=== PATIENT | male | born 1940 | race Caucasian/White ===

== ENCOUNTER 2022-04-22 18:12 | Emergency (ER) | payer MEDICARE, SELFPAY ==
[2022-04-22 18:18] VITALS: BP 114/75; PULSE 88; RESP 16; TEMP 36.4; O2SAT 96; BMI 28.1
[2022-04-22 19:13] LABS: Basophils Absolute Auto 0.04 K/uL (0.00-0.30); Basophils Percent Auto 0.6 % (0.0-3.0); Eosinophils Absolute Auto 0.11 K/uL (0.00-0.50); Eosinophils Percent Auto 1.6 % (0.0-7.0); Hematocrit 44.6 % (37.0-53.0); Hemoglobin* 15.4 gm/dL (13.5-17.5); Immature Granulocytes Abs Auto 0.01 K/uL (0.00-0.30); Lymphocytes Absolute Auto 1.66 K/uL (0.90-2.90); Lymphocytes Percent Auto 23.6 % (20-44); Mean Corpuscular HGB Conc 35 gm/dL (32-36); Mean Corpuscular Hemoglobin 31 pg (26-34); Mean Corpuscular Volume 89 fL (80-100); Monocytes Percent Auto 9.8 % (0.0-11.0); Neutrophils Absolute Auto 4.52 K/uL (1.7-7.0); Neutrophils Percent Auto 64.3 % (42.0-72.0); Platelet Count* 205 K/uL (140-440); RDW Coefficient of Variation % 12.2 % (11.5-15.5); Red Blood Count 5.03 m/uL (4.30-5.90); White Blood Count* 7.03 K/uL (4.50-11.00)
[2022-04-22 19:16] LABS: Slide Review Reflex No
[2022-04-22 19:29] LABS: Chloride* 108 mmol/L (96-114); Potassium* 4.3 mmol/L (3.6-5.1); Sodium* 138 mmol/L (135-149)
[2022-04-22 19:32] LABS: Blood Urea Nitrogen* 29 mg/dL (7-30); Carbon Dioxide* 22 mmol/L (20-32); Creatinine* 1.1 mg/dL (0.5-1.5); Est. Creatinine Clearance* 51.82; Estimated Glomerular Filt Rate 68 ml/min
[2022-04-22 19:33] LABS: Calcium* 9.4 mg/dL (8.4-10.6); Glucose* 103 mg/dL (60-115)
--- NOTE | 2022-04-22 20:27 | ED.GENADULT ---
HPI - General Adult General Date Seen: 04/22/22 Chief complaint: High Blood Pressure Stated complaint: Elevated HR Time Seen by Provider: 04/22/22 18:32 History of Present Illness HPI narrative: Patient is an 81 year old male who says that he was a little concerned about his heart rate last night and today. Says his normal heart rate is in the 70s are maybe 80s. Last night when he went to get on his stationary bike, he noted that when he started riding the bike his heart rate was instead in the 90s. Today, when he took his blood pressure he noted that his heart rate was again in the 90s, when it normally is in the 80s. He says he feels completely fine, and if he did not checked the numbers he would not have known anything was wrong. He says he called the clinic to ask what he should do, and the triage nurse that he probably should not wait to be seen in the clinic but instead she be seen in the ER. He denies any symptoms at all, has not had chest pain, palpitations, shortness of breath, lightheadedness, dizziness, fainting, denies any nausea or vomiting, no diarrhea, no black or bloody stools. Has been eating and drinking well. Has been able to exercise normally. He had a new blood pressure medicine started a month ago which he does not remember the name of. He has continued to take his metoprolol aside from missing 1 or 2 doses. Related Data Home Medications Medication Instructions Recorded Confirmed gabapentin 300 mg capsule mg 04/22/22 lisinopril 20 tab 04/22/22 mg-hydrochlorothiazide 12.5 mg tablet metoprolol succinate 25 mg mg PO 04/22/22 tablet,extended release 24 hr mirtazapine 7.5 mg tablet mg 04/22/22 Allergies Allergy/AdvReac Type Severity Reaction Status Date / Time No Known Drug Allergies Allergy Verified 04/22/22 18:26 Review of Systems Status of ROS: Reports: 10 or more systems reviewed and unremarkable except as noted in History and below [facility] Medical History Depression Hypertension Lumbar stenosis Surgical History History of carpal tunnel release Social History Smoking Status: Never smoker How often do you have a drink containing alcohol: never How often do you have six or more drinks on one occasion: Never AUDIT-C Alcohol total score: 0 Non-prescribed substance use: denies use Exam Narrative: Exam Narrative: Vital signs as noted below. In general, an alert, well-appearing patient. Head: Normocephalic, atraumatic. Eyes: Pupils are equal reactive. Extraocular movements are full. Conjunctivae are normal. ENT: Mucous membranes are moist. Throat is normal. Neck: Supple without lymphadenopathy. Heart: Regular rate and rhythm. No murmur or rub. Lungs: Clear bilaterally. No increased work of breathing, crackles or wheezes. Abdomen: Soft and nontender. No organomegaly. Extremities: Well perfused. No edema. No calf tenderness. Pulses intact. Neurologic: Patient is alert and oriented to person and place. Speech is fluent. Face is symmetric. Moves all extremities equally. Affect: Normal. Skin: Warm and dry. Well perfused. Const: Vital Signs, click to edit/add: Vital Signs - 24 hr 04/22/22 18:18 Temperature 97.6 F Pulse Rate [Right Pulse Oximeter] 88 Respiratory Rate 16 Blood Pressure [Ri ght Upper Arm] 114/75 Pulse Oximetry 96 Documenting provider has reviewed patient's vital signs: yes Course Course Hospital Course: I did check an EKG here, he is in a normal sinus rhythm with a first-degree AV block by my review. No ST segment changes. I checked a CBC, he has hemoglobin is normal. Basic metabolic panel shows normal electrolytes, normal creatinine. BUN is 29. Overall, I have reviewed with him that his heart rates are all within normal limits. He is not having any symptoms, does not have anything in his history to suggest a reason to be concerned. I have suggested to him that he simply stop checking his heart rates. Discussed if he begins to have any symptoms such as shortness of breath, lightheadedness, weakness etcetera that he can go ahead and check a heart rate. If faster than 100, check in with primary care. Follow up with primary care as planned in June and less symptoms develop. Vital Signs Vital signs: Initial Vital Signs Temperature 97.6 F 04/22/22 18:18 Temperature Source Temporal Artery Scan 04/22/22 18:18 Pulse Rate 88 04/22/22 18:18 Respiratory Rate 16 04/22/22 18:18 Blood Pressure 114/75 04/22/22 18:18 Blood Pressure Mean 88 04/22/22 18:18 Blood Pressure Position Sitting 04/22/22 18:18 Pulse Oximetry 96 04/22/22 18:18 Oxygen Delivery Method 04/22/22 18:18 Vital Signs Temperature 97.6 F 04/22/22 18:18 Pulse Rate 88 04/22/22 18:18 Respiratory Rate 16 04/22/22 18:18 Blood Pressure 114/75 04/22/22 18:18 Pulse Oximetry 96 04/22/22 18:18 Temperature 97.6 F 04/22/22 18:18 Pulse Rate 88 04/22/22 18:18 Respiratory Rate 16 04/22/22 18:18 Blood Pressure 114/75 04/22/22 18:18 Pulse Oximetry 96 04/22/22 18:18 Medical Decision Making Lab Data Labs: Lab Results 04/22/22 04/22/22 Range/Units 18:50 18:50 WBC 7.03 (4.50-11.00) K/uL RBC 5.03 (4.30-5.90) m/uL Hgb 15.4 (13.5-17.5) gm/dL Hct 44.6 (37.0-53.0) % MCV 89 (80-100) fL MCH 31 (26-34) pg MCHC 35 (32-36) gm/dL RDW Coeff of Nikhil 12.2 (11.5-15.5) % Plt Count 205 (140-440) K/uL Neut % (Auto) 64.3 (42.0-72.0) % Lymph % (Auto) 23.6 (20-44) % [place] % (Auto) 9.8 (0.0-11.0) % Eos % (Auto) 1.6 (0.0-7.0) % Baso % (Auto) 0.6 (0.0-3.0) % Neut # (Auto) 4.52 (1.7-7.0) K/uL Lymph # (Auto) 1.66 (0.90-2.90) K/uL [place] # (Auto) 0.70 (0.00-0.90) K/UL Eos # (Auto) 0.11 (0.00-0.50) K/uL Baso # (Auto) 0.04 (0.00-0.30) K/uL Abs Immat Gran (auto) 0.01 (0.00-0.30) K/uL Sodium 138 (135-149) mmol/L Potassium 4.3 (3.6-5.1) mmol/L Chloride 108 (96-114) mmol/L Carbon Dioxide 22 (20-32) mmol/L BUN 29 (7-30) mg/dL Creatinine 1.1 (0.5-1.5) mg/dL Estimated Creat Clear 51.82 Estimated GFR 68 ml/min Glucose 103 (60-115) mg/dL Calcium 9.4 (8.4-10.6) mg/dL Discharge Plan Discharge Clinical Impression: Worried well Patient Disposition: Home, Self-Care Condition: Stable Additional Instructions: Follow-up with your doctors plan. No need to check your heart rate unless you are feeling poorly. Prescriptions: No Action lisinopril-hydrochlorothiazide 20-12.5 mg tablet 0RF Label Comments: TAKE 1 TABLET BY MOUTH EVERY DAY gabapentin 300 mg capsule 0RF metoprolol succinate 25 mg tablet extended release 24 hr PO 0RF Label Comments: TAKE 1 TABLET BY MOUTH EVERY DAY IN THE MORNING mirtazapine 7.5 mg tablet 0RF Label Comments: TAKE 1 TABLET BY MOUTH AT BEDTIME. Follow Up/Referrals: Robbie Maldonado MD [Primary Care Provider] - Stand Alone Forms: [employer] Info Instructions
[2022-04-22 20:43] VITALS: BP 120/70; PULSE 79; RESP 16; TEMP 36.4; O2SAT 98
[2022-04-22 20:46] VITALS: BP 120/70; PULSE 79; RESP 16; TEMP 36.4
== END 2022-04-22 20:45 | disposition home or self-care (01) ==
PROVIDERS: Emergency Provider Emergency Medicine; PCP Family Medicine
DX: Z71.1 Person with feared health complaint in whom no diagnosis is made (principal)
CPT/HCPCS: 36415; 80048; 85025; 93005; 99283

== ENCOUNTER 2022-12-11 17:36 | Inpatient (IN) | payer MEDICARE, SELFPAY ==
[2022-12-11] VITALS (12 sets, daily range): BP systolic 99–152; BP diastolic 64–94; PULSE 80–95; RESP 16–18; TEMP 36.8–37.1; O2SAT 96–99; BMI 28.1; BMI 28.5
--- NOTE | 2022-12-11 18:07 | ED.GENADULT ---
HPI - General Adult General Chief complaint: Weakness Stated complaint: Fall Time Seen by Provider: 12/11/22 17:38 History of Present Illness HPI narrative: This 82-year-old male lives alone at home and comes in because of a couple falls that occurred today. He states that he typically uses a walker and has a foot brace because of a foot drop. He lives alone and can usually ambulate and manage daily activities well. He did test positive for COVID today. He does have symptoms of cough and nasal congestion. He states that he fell twice at home today and does not have any specific injury from the fall. He states that he was unable to get up because he did not have strength in his arms and legs. He was across the room from his cellphone and was unable to get up even to his hands and knees to crawl. He had to roll over to his back and scoot over to the phone to ask for help. He does have abrasions on both knees. He was able to call a couple friends who helped him get up to ambulate. He came in by private vehicle and again had a fall upon entering the emergency department here. He does not report any particular pain. He states that he feels generalized weakness. He had similar symptoms last summer and was deemed to be volume depleted. He states that he has been taking oral liquids and food sufficiently. Related Data Home Medications Medication Instructions Recorded Confirmed gabapentin 300 mg capsule mg 04/22/22 lisinopril 20 1 tab PO DAILY 04/22/22 12/11/22 mg-hydrochlorothiazide 12.5 mg tablet metoprolol succinate 25 mg 25 mg PO DAILY 04/22/22 12/11/22 tablet,extended release 24 hr mirtazapine 7.5 mg tablet mg 04/22/22 Allergies Allergy/AdvReac Type Severity Reaction Status Date / Time No Known Drug Allergies Allergy Verified 04/22/22 18:26 Review of Systems Status of ROS: Reports: 10 or more systems reviewed and unremarkable except as noted in History and below Narrative: Constitutional: No fevers, no weight gain or loss. Eyes: No discharge. No vision changes. HENT: No ear pain. He reports nasal congestion and sore throat. Cardiovascular: No chest pain, no palpitations. Respiratory: No shortness of breath, no wheezes. He reports an occasional cough. Gastrointestinal: No abdominal pain, no vomiting, no diarrhea. Genitourinary: No dysuria, no hematuria. Musculoskeletal: Normal range of motion. Skin: No rashes, no pruritis. Abrasions on both knees. Neurological: No dizziness, sensory change, speech change. Generalized weakness as described above. Endo/Heme/Allergies: No bruising or bleeding. No polydipsia. Pysch: no suicidality, no anxiety, no insomnia. All other systems reviewed and are negative. [facility] Medical History Depression Hypertension Lumbar stenosis Surgical History History of carpal tunnel release Social History Smoking Status: Former smoker How often do you have a drink containing alcohol: never How often do you have six or more drinks on one occasion: Never AUDIT-C Alcohol total score: 0 Non-prescribed substance use: denies use Exam Narrative: Exam Narrative: Constitutional: Well-developed, well-nourished, no acute distress. HEENT: Normocephalic, atraumatic. Neck: Normal range of motion. Nontender. Supple. Heart: Regular. No murmurs. Normal rate. Intact distal pulses. Lungs: Clear to auscultation. No chest discomfort. No wheezes, rhonchi, or rales. Abdomen: Normal bowel sounds. Nontender. No rebound tenderness. Genitalia: Deferred. Back: No midline tenderness. Normal range of motion. Extremities: Normal range of motion. Superficial abrasions on both knees. Skin: Intact. No rash. Warm. No erythema or pallor. Neurologic: No altered sensation. No weakness. Alert and oriented. He is able to raise each leg from the bed. No facial asymmetry. Speech is normal. Psychiatric: No suicidality. No anxiety or depression. No insomnia. Nursing notes and vitals signs are reviewed. Const: Vital Signs, click to edit/add: Vital Signs - 24 hr 12/11/22 17:43 12/11/22 18:33 12/11/22 19:02 Temperature 98.7 F Pulse Rate 84 80 Pulse Rate [Pulse Oximeter] 95 Respiratory Rate 18 Blood Pressure 101/76 112/81 Blood Pressure [Ri ght Upper Arm] 99/75 Pulse Oximetry 97 98 96 Oxygen Delivery Me thod Room Air Course Vital Signs Vital signs: Initial Vital Signs Temperature 98.7 F 12/11/22 17:43 Temperature Source Temporal Artery Scan 12/11/22 17:43 Pulse Rate 95 12/11/22 17:43 Pulse Rhythm 12/11/22 17:43 Respiratory Rate 18 12/11/22 17:43 Blood Pressure 99/75 12/11/22 17:43 Blood Pressure Mean 83 12/11/22 17:43 Blood Pressure Position Sitting 12/11/22 17:43 Pulse Oximetry 97 12/11/22 17:43 Oxygen Delivery Method 12/11/22 17:43 Vital Signs Temperature 98.7 F 12/11/22 17:43 Pulse Rate 95 12/11/22 17:43 Respiratory Rate 18 12/11/22 17:43 Blood Pressure 99/75 12/11/22 17:43 Pulse Oximetry 97 12/11/22 17:43 Oxygen Delivery Method 12/11/22 17:43 Temperature 98.7 F 12/11/22 17:43 Pulse Rate 80 12/11/22 19:02 Respiratory Rate 18 12/11/22 17:43 Blood Pressure 112/81 12/11/22 19:02 Pulse Oximetry 96 12/11/22 19:02 Oxygen Delivery Method 12/11/22 17:43 Medical Decision Making MDM Narrative Medical decision making narrative: This patient comes in reporting generalized weakness. He has fallen 3 times today and was unable to get up. He normally can ambulate with the assistance of a walker. He does not report any injury except he has got abrasions on his knees from trying to crawl to his phone at home. Lab results are returning with no findings that explain weakness. He was positive for COVID at home and this was confirmed with retesting here today. This likely is the explanation for his would generalized weakness. I did speak to the hospitalist on-call who agrees to his admission. Lab Data Labs: Lab Results 12/11/22 12/11/22 12/11/22 Range/Units 18:25 18:25 18:41 WBC 8.32 (4.50-11.00) K/uL RBC 4.68 (4.30-5.90) m/uL Hgb 14.2 (13.5-17.5) gm/dL Hct 42.0 (37.0-53.0) % MCV 90 (80-100) fL MCH 30 (26-34) pg MCHC 34 (32-36) gm/dL RDW Coeff of Nikhil 12.7 (11.5-15.5) % Plt Count 122 L (140-440) K/uL Neut % (Auto) 86.8 H (42.0-72.0) % Lymph % (Auto) 4.6 L (20-44) % [place] % (Auto) 8.1 (0.0-11.0) % Eos % (Auto) 0.2 (0.0-7.0) % Baso % (Auto) 0.2 (0.0-3.0) % Neut # (Auto) 7.20 H (1.7-7.0) K/uL Lymph # (Auto) 0.40 L (0.90-2.90) K/uL [place] # (Auto) 0.70 (0.00-0.90) K/UL Eos # (Auto) 0.02 (0.00-0.50) K/uL Baso # (Auto) 0.02 (0.00-0.30) K/uL Sodium 134 L (135-149) mmol/L Potassium 3.8 (3.6-5.1) mmol/L Chloride 106 (96-114) mmol/L Carbon Dioxide 23 (20-32) mmol/L BUN 20 (7-30) mg/dL Creatinine 1.1 (0.5-1.5) mg/dL Estimated Creat Clear 52.67 Estimated GFR 67 ml/min Glucose 105 (60-115) mg/dL Calcium 8.1 L (8.4-10.6) mg/dL SARS-CoV-2 Ag (Rapid) POSITIVE A (Negative) ECG Data Attestation: I personally reviewed and interpreted this ECG as follows: Interpretation: Normal sinus rhythm with 1st degree AV block. Rate is 84 beats per minute. There are no ST or T-wave abnormalities. Discharge Plan Discharge Clinical Impression: COVID-19, Weakness Patient Disposition: Admitted As Inpatient Condition: Unchanged Prescriptions: No Action lisinopril-hydrochlorothiazide 20-12.5 mg tablet 1 tab PO DAILY Label Comments: TAKE 1 TABLET BY MOUTH EVERY DAY gabapentin 300 mg capsule metoprolol succinate 25 mg tablet extended release 24 hr 25 mg PO DAILY Label Comments: TAKE 1 TABLET BY MOUTH EVERY DAY IN THE MORNING mirtazapine 7.5 mg tablet Label Comments: TAKE 1 TABLET BY MOUTH AT BEDTIME. Follow Up/Referrals: Robbie Maldonado MD [Primary Care Provider] - Stand Alone Forms: [employer] Info Instructions
--- NOTE | 2022-12-11 18:11 | CRLHL7_ITS ---
For Patients: As a result of the Cures Act, medical imaging exams and procedure reports are released immediately into your electronic medical record. You may view this report before your referring provider. If you have questions, please contact your health care provider. INDICATION: Cough, COVID TECHNIQUE: Chest 1 view COMPARISON: 03/23/2022 FINDINGS: Cardiovascular and mediastinum: Vascular calcifications and cardiac silhouette enlargement with tortuosity of the aorta. Lungs and pleural spaces: Lungs are clear. No sign of infiltrate or mass. No sign of pleural effusion. No pneumothorax. Bones and soft tissues: No acute fracture. Postop changes lower thoracic/lumbar spine. Degenerative changes. IMPRESSION: No acute findings. Dictated by Jake Reese MD @ 12/11/2022 6:54:40 PM (Electronically Signed)
[2022-12-11] MEDS: 0.9 % SODIUM CHLORIDE 500 ML 500 ML IV (18:27)
[2022-12-11 18:33] LABS: Basophils Absolute Auto 0.02 K/uL (0.00-0.30); Basophils Percent Auto 0.2 % (0.0-3.0); Eosinophils Absolute Auto 0.02 K/uL (0.00-0.50); Eosinophils Percent Auto 0.2 % (0.0-7.0); Hemoglobin* 14.2 gm/dL (13.5-17.5); Immature Granulocytes Abs Auto 0.01 K/uL (0.00-0.30); Immature Granulocytes Pct Auto 0.1 %; Lymphocytes Percent Auto 4.6 % (20-44); Mean Corpuscular HGB Conc 34 gm/dL (32-36); Mean Corpuscular Hemoglobin 30 pg (26-34); Mean Corpuscular Volume 90 fL (80-100); Monocytes Percent Auto 8.1 % (0.0-11.0); Neutrophils Percent Auto 86.8 % (42.0-72.0); Platelet Count* 122 K/uL (140-440); RDW Coefficient of Variation % 12.7 % (11.5-15.5); Red Blood Count 4.68 m/uL (4.30-5.90); White Blood Count* 8.32 K/uL (4.50-11.00)
--- NOTE | 2022-12-11 18:37 | ED.NURSE ---
Heads-up to HS regarding possible admission.
[2022-12-11 18:55] LABS: Slide Review Reflex No
[2022-12-11 19:01] LABS: Chloride* 106 mmol/L (96-114); Potassium* 3.8 mmol/L (3.6-5.1); Sodium* 134 mmol/L (135-149)
[2022-12-11 19:04] LABS: Blood Urea Nitrogen* 20 mg/dL (7-30); Carbon Dioxide* 23 mmol/L (20-32); Creatinine* 1.1 mg/dL (0.5-1.5); Est. Creatinine Clearance* 52.67; Estimated Glomerular Filt Rate 67 ml/min; Glucose* 105 mg/dL (60-115)
[2022-12-11 19:05] LABS: Calcium* 8.1 mg/dL (8.4-10.6)
[2022-12-11 19:06] LABS: SARS Antigen* POSITIVE (Negative)
--- NOTE | 2022-12-11 20:01 | ED.NURSE ---
patient assited to side of the bed to use urinal. Patient then assisted back into bed, patient given extra pillow for under his knees. Patient denies any other needs at this time.
--- NOTE | 2022-12-11 20:01 | ED.NURSE ---
M/S requests Pt be held in ED until room can be vacated and cleaned.
--- NOTE | 2022-12-11 20:10 | W.PC.EDHO ---
Primary Language: Preferred Language: Orientation Status: [X] Alert & Oriented [] Slight Confusion [] Known Dx Dementia Transfers By: [X] Assist of 1 [] Assist of 2 [] Lift Wears leg brace for chronic foot drop. #20G in L AC. Active Medications Discontinued Medications Generic Name Dose Route Start Last Admin Trade Name Daily PRN Reason Stop Dose Admin Sodium Chloride 500 mls @ 500 mls/hr 12/11/22 18:05 12/11/22 19:27 0.9 % Sodium Chloride 500 Ml IV 12/11/22 19:04 Infused .Q1H ONE Infusion Description of Symptoms ED Triage Present Problem Pt here for eval of weakness, frequent falls, Description COVID+. Sore throat, SOB, weakness started , tested + for COVID last noc. Has abrasions on bilateral knees from falls today, had to crawl on floor to get to phone to call neighbor. Uses a walker at home, leg braces. C/o bilateral knee pain. Did take a lorazepam last noc for muscle spasms. [place] Coma Scale [place] coma scale total score 15 Pain Pain Description [Knee] Acute Pain Intensity [Knee] 7 Pain Intensity 7 Pain Intensity 7 Pain Intensity 7 Pain Scale Used [Knee] Numeric (1 - 10) Pain Scale Used Numeric (1 - 10) Pain Scale Used Numeric (1 - 10) Pain Scale Used Numeric (1 - 10) Oxygen Administration Pulse Oximetry 99 Pulse Oximetry 96 Pulse Oximetry 98 Pulse Oximetry 97 Oxygen Delivery Method Room Air Cardiac Monitoring EKG Method Bedside
--- NOTE | 2022-12-11 20:14 | ED.NURSE ---
Report given to JACQUI Salinas.
[2022-12-11 20:24] LABS: Appearance Urine Clear (Clear); Bilirubin Urine Negative (Negative); Blood Urine Trace-intact (Negative); Color Urine Yellow (Yellow); Glucose Urine Negative (Negative); Ketones Urine Negative (Negative); Leukocyte Esterase Urine Negative (Negative); Nitrite Urine Negative (Negative); Protein Urine Negative (Negative); Specific Gravity Urine <= 1.005 (1.000-1.030); Urobilinogen Urine 0.2 (0.2-1.0)
[2022-12-11 20:43] LABS: RBC Urine 0-2 (0-2); WBC Urine 0-2 (0-5)
[2022-12-11 20:44] LABS: Amorphous Sediment Urine Few; Bacteria Urine Few
--- NOTE | 2022-12-11 20:59 | PM.IMHP1 ---
Hospitalist- H&P: HPI History of Present Illness Date Seen: 12/11/22 Chief complaint: Fall Narrative: Shane Rajput is a 82 year old male who presented to the emergency room for profound weakness that began this morning. He fell at home and had to crawl to the phone to call for help to get up, he then had a friend drive him to the ER, and fell again upon arrival. There has been no preceding dizziness, lightheadedness, or palpitations. He did not lay on the floor for an extended period of time. He did test positive for COVID at home this morning. He endorses a mild cough and sore throat with nasal congestion. He has not had shortness of breath or chest pain. ER course and findings: - negative chest x-ray - + COVID antigen - mild thrombocytopenia (platelets of 122, has not had a CBC in a few years but they were previously normal on chart review) Given patient's weakness and COVID positivity, in addition to the fact that he lives alone and has mobility concerns, he is admitted to the hospital. Past medical history updated below. PCP is Dr. Maldonado at the [facility]. He has received 5 COVID vaccinations. Patient lives independently, ambulates with a walker and brace on right lower extremity given foot drop. Review of Systems Status of ROS: Reports: 10 or more systems reviewed and unremarkable except as noted in History and below [facility] Medical History (Updated 12/11/22 @ 21:57 by Aleta Zamora MD) Depression Foot drop, right Hypertension Insomnia Lumbar stenosis Muscle spasms of both lower extremities Surgical History (Updated 12/11/22 @ 20:02 by Aleta Zamora MD) H/O spinal fusion History of carpal tunnel release History of total knee arthroplasty Hx of cataract surgery S/P hip replacement Social History (Updated 12/11/22 @ 21:24 by Aleta Zamora MD) Narrative: Lives alone in [place]. No living children, son 2-3 years ago. Niece Aleyda Rajput in [place] or friends Woo and Joanne Webb would be medical decision makers if needed. Full code status. 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 Quit smoking in the , no ETOH use. Smoking Status: Former smoker How often do you have a drink containing alcohol: never How often do you have six or more drinks on one occasion: Never AUDIT-C Alcohol total score: 0 Non-prescribed substance use: denies use Meds Home Medications and Allergies Home Medications Medication Instructions Recorded Confirmed Type gabapentin 300 mg capsule 600 mg PO HS 04/22/22 12/11/22 History lisinopril 20 1 tab PO DAILY 04/22/22 12/11/22 History mg-hydrochlorothiazide 12.5 mg tablet metoprolol succinate 25 mg 25 mg PO DAILY 04/22/22 12/11/22 History tablet,extended release 24 hr lorazepam 1 mg tablet 0.5 - 1 mg PO QPM PRN 12/11/22 12/11/22 History Allergies Allergy/AdvReac Type Severity Reaction Status Date / Time No Known Drug Allergies Allergy Verified 04/22/22 18:26 Exam Narrative: Exam Narrative: GEN: Alert and oriented, answering questions appropriately and appears nontoxic HEENT: EOMIs bilaterally, no scleral icterus CV: RRR, soft systolic murmur without concerning features R: LCTA bilaterally without concerning wheezing, air movement adequate Ext: No concerning edema of LEs Skin: + abrasions on left upper extremity and bilateral knees, all hemostatic Neuro: No focal deficits, no resting tremor, gait not observed Psych: Appropriate Const: Vital Signs, click to edit/add: Vital Signs - 24 hr 12/11/22 17:43 12/11/22 18:33 12/11/22 19:02 Temperature 98.7 F Pulse Rate 84 80 Pulse Rate [Pulse Oximeter] 95 Respiratory Rate 18 Blood Pressure 101/76 112/81 Blood Pressure [Ri ght Upper Arm] 99/75 Pulse Oximetry 97 98 96 Oxygen Delivery Me thod Room Air 12/11/22 19:32 Temperature Pulse Rate 86 Pulse Rate [Pulse Oximeter] Respiratory Rate Blood Pressure 113/75 Blood Pressure [Ri ght Upper Arm] Pulse Oximetry 99 Oxygen Delivery Me thod Hospitalist - H&P: Result Labs Labs: Short CBC 12/11/22 Range/Units 18:25 WBC 8.32 (4.50-11.00) K/uL Hgb 14.2 (13.5-17.5) gm/dL Hct 42.0 (37.0-53.0) % Plt Count 122 L (140-440) K/uL BMP 12/11/22 18:25 Sodium 134 L Potassium 3.8 Chloride 106 Carbon Dioxide 23 BUN 20 Creatinine 1.1 Glucose 105 Calcium 8.1 L Urine 12/11/22 Range/Units 20:15 Urine Color Yellow (Yellow) Urine Appearance Clear (Clear) Urine pH 5.0 (5.0-8.5) Ur Specific [place] <= 1.005 (1.000-1.030) Urine Protein Negative (Negative) Urine Glucose (UA) Negative (Negative) Assessment and Plan Assessment and plan (1) COVID-19: Problem comment: - amenable to Remdesivir after risk and benefit discussion - no hypoxia, weakness is primary COVID symptom Status: Acute (2) Weakness: Problem comment: - likely secondary to COVID - PT and OT ordered Status: Acute (3) Thrombocytopenia: Problem comment: - no history of this per chart review, continue to follow Status: Acute (4) Muscle spasms of both lower extremities: Problem comment: - chronic, likely main contributor to insomnia - currently controls with outpatient regimen of 600-900mg of gabapentin at night, in addition to melatonin and magnesium. Occasionally adds 0.5 mg of lorazepam Status: Acute Plan - per above - lovenox for ppx (continue to monitor platelet count on this) - requests Full Code status
[2022-12-11] MEDS: GABAPENTIN 300 MG CAPSULE 600 MG PO (22:30)
[2022-12-11] MEDS: MELATONIN 3 MG TABLET PO (22:30)
[2022-12-11] MEDS: LORazepam 0.5 MG TABLET PO (23:06)
[2022-12-12] MEDS: guaiFENesin 100 MG/ML CUP PO ×3 (03:00→22:54)
[2022-12-12 05:37] VITALS: BP 133/80; PULSE 88; RESP 18; TEMP 36.8; O2SAT 98
--- NOTE | 2022-12-12 06:04 | PC.NURSE ---
Pt rested well this night. Afebrile. O2 98% on RA. Oriented x3. Wobbly on feet. Able to stand at side of bed with urinal.
[2022-12-12 06:31] LABS: Basophils Absolute Auto 0.01 K/uL (0.00-0.30); Basophils Percent Auto 0.2 % (0.0-3.0); Eosinophils Absolute Auto 0.02 K/uL (0.00-0.50); Eosinophils Percent Auto 0.3 % (0.0-7.0); Hemoglobin* 14.4 gm/dL (13.5-17.5); Lymphocytes Percent Auto 11.6 % (20-44); Mean Corpuscular HGB Conc 34 gm/dL (32-36); Mean Corpuscular Hemoglobin 30 pg (26-34); Mean Corpuscular Volume 90 fL (80-100); Monocytes Percent Auto 12.2 % (0.0-11.0); Neutrophils Percent Auto 75.7 % (42.0-72.0); Platelet Count* 133 K/uL (140-440); Red Blood Count 4.76 m/uL (4.30-5.90); White Blood Count* 6.29 K/uL (4.50-11.00)
[2022-12-12 06:45] LABS: Chloride* 107 mmol/L (96-114); Potassium* 4.2 mmol/L (3.6-5.1); Sodium* 137 mmol/L (135-149)
[2022-12-12 06:47] LABS: Est. Creatinine Clearance* 57.93; Estimated Glomerular Filt Rate 76 ml/min
[2022-12-12 06:48] LABS: Blood Urea Nitrogen* 16 mg/dL (7-30); Calcium* 8.3 mg/dL (8.4-10.6); Carbon Dioxide* 24 mmol/L (20-32); Glucose* 107 mg/dL (60-115)
[2022-12-12 06:49] LABS: Slide Review Reflex No
[2022-12-12] MEDS: METOPROLOL SUCCINATE (XL) 25 MG TAB PO (10:15)
[2022-12-12] MEDS: SODIUM CHLORIDE 0.9 % (FLUSH) 10 ML SYRINGE 5 ML IVF ×2 (10:16→21:57)
[2022-12-12 10:18] VITALS: BP 124/94; PULSE 110; RESP 20; TEMP 36.9; O2SAT 95
[2022-12-12] MEDS: ACETAMINOPHEN 325 MG TABLET 975 MG PO (10:53)
--- NOTE | 2022-12-12 14:26 | P.IMPN_ITS ---
Progress Note: A&P Assessment and plan (1) COVID-19: Problem details: - amenable to Remdesivir after risk and benefit discussion - no hypoxia, weakness is primary COVID symptom Status: Acute (2) Weakness: Problem details: - likely secondary to COVID - PT and OT ordered Status: Acute (3) Thrombocytopenia: Problem details: - no history of this per chart review, no evidence of acute bleeding, continue to follow Status: Acute (4) Muscle spasms of both lower extremities: Problem details: - chronic, likely main contributor to insomnia - currently controls with outpatient regimen of 600-900mg of gabapentin at night, in addition to melatonin and magnesium. Occasionally adds 0.5 mg of lorazepam Status: Acute (5) Tachycardia: Problem details: - intermittent sinus tachycardia noted, no other symptoms. Blood pressure stable and patient remains afebrile - continue to follow Status: Acute Plan - per above - Lovenox for ppx - pending clinical course, may be able to d/c home with HH vs TCU stay Subjective Date Seen: 12/12/22 Interval history: No acute events overnight. Not requiring supplemental oxygen, tolerating medications. Shane has no concerns for hospitalist team, weakness is slowly improving. Working with therapies. Tachycardia noted today, asymptomatic from this. No CP, no dyspnea, no LE edema. Exam Narrative: Exam Narrative: GEN: Alert and oriented, sitting comfortably in bed and speaking in full sentences HEENT: EOMIs bilaterally, no scleral icterus CV: Heart rate in the 100 range and regular, no concerning murmurs R: LCTA bilaterally without concerning wheezing, air movement adequate Ext: wwp, no concerning edema Skin: Scattered abrasions on lower extremities bilaterally, none with evidence of acute infection Neuro: No focal deficits Psych: Appropriate Const: Vital Signs, click to edit/add: Vital Signs - 24 hr 12/11/22 17:43 12/11/22 18:33 12/11/22 19:02 Temperature 98.7 F Pulse Rate 84 80 Pulse Rate [Left R adial] Pulse Rate [Pulse Oximeter] 95 Respiratory Rate 18 Blood Pressure 101/76 112/81 Blood Pressure [Ri ght Arm] Blood Pressure [Ri ght Upper Arm] 99/75 Pulse Oximetry 97 98 96 Oxygen Delivery Me thod Room Air 12/11/22 19:32 12/11/22 20:15 12/11/22 20:30 Temperature Pulse Rate 86 85 83 Pulse Rate [Left R adial] Pulse Rate [Pulse Oximeter] Respiratory Rate Blood Pressure 113/75 Blood Pressure [Ri ght Arm] Blood Pressure [Ri ght Upper Arm] Pulse Oximetry 99 97 98 Oxygen Delivery Me thod 12/11/22 20:32 12/11/22 20:45 12/11/22 21:00 Temperature Pulse Rate 85 90 91 Pulse Rate [Left R adial] Pulse Rate [Pulse Oximeter] Respiratory Rate Blood Pressure 139/87 Blood Pressure [Ri ght Arm] Blood Pressure [Ri ght Upper Arm] Pulse Oximetry 98 98 97 Oxygen Delivery Me thod 12/11/22 21:46 12/11/22 23:07 12/11/22 23:15 Temperature 98.7 F 98.3 F Pulse Rate Pulse Rate [Left R adial] 88 Pulse Rate [Pulse Oximeter] Respiratory Rate 18 18 16 Blood Pressure Blood Pressure [Ri ght Arm] 152/94 H 104/64 Blood Pressure [Ri ght Upper Arm] Pulse Oximetry 97 97 98 [facility] Room [facility] 12/12/22 05:37 12/12/22 10:18 Temperature 98.2 F 98.4 F Pulse Rate Pulse Rate [Left R adial] 88 110 H Pulse Rate [Pulse Oximeter] Respiratory Rate 18 20 Blood Pressure Blood Pressure [Ri ght Arm] 133/80 124/94 H Blood Pressure [Ri ght Upper Arm] Pulse Oximetry 98 95 [facility] Room Air Labs Labs: Laboratory Results - last 24 hr 12/11/22 12/11/22 12/11/22 18:25 18:25 18:41 WBC 8.32 RBC 4.68 Hgb 14.2 Hct 42.0 MCV 90 MCH 30 MCHC 34 RDW Coeff of Nikhil 12.7 Plt Count 122 L Neut % (Auto) 86.8 H Lymph % (Auto) 4.6 L [place] % (Auto) 8.1 Eos % (Auto) 0.2 Baso % (Auto) 0.2 Neut # (Auto) 7.20 H Lymph # (Auto) 0.40 L [place] # (Auto) 0.70 Eos # (Auto) 0.02 Baso # (Auto) 0.02 Sodium 134 L Potassium 3.8 Chloride 106 Carbon Dioxide 23 BUN 20 Creatinine 1.1 Estimated Creat Clear 52.67 Estimated GFR 67 Glucose 105 Calcium 8.1 L Urine Color Urine Appearance Urine pH Ur Specific [place] Urine Protein Urine Glucose (UA) Urine Ketones Urine Blood Urine Nitrite Urine Bilirubin Urine Urobilinogen Ur Leukocyte Esterase Urine RBC Urine WBC Ur Squamous Epith Cells Amorphous Sediment Urine Bacteria SARS-CoV-2 Ag (Rapid) POSITIVE A 12/11/22 12/12/22 12/12/22 20:15 06:15 06:15 WBC 6.29 RBC 4.76 Hgb 14.4 Hct 43.0 MCV 90 MCH 30 MCHC 34 RDW Coeff of Nikhil 13.0 Plt Count 133 L Neut % (Auto) 75.7 H Lymph % (Auto) 11.6 L [place] % (Auto) 12.2 H Eos % (Auto) 0.3 Baso % (Auto) 0.2 Neut # (Auto) 4.80 Lymph # (Auto) 0.70 L [place] # (Auto) 0.80 Eos # (Auto) 0.02 Baso # (Auto) 0.01 Sodium 137 Potassium 4.2 Chloride 107 Carbon Dioxide 24 BUN 16 Creatinine 1.0 Estimated Creat Clear 57.93 Estimated GFR 76 Glucose 107 Calcium 8.3 L Urine Color Yellow Urine Appearance Clear Urine pH 5.0 Ur Specific [place] <= 1.005 Urine Protein Negative Urine Glucose (UA) Negative Urine Ketones Negative Urine Blood Trace-intact A Urine Nitrite Negative Urine Bilirubin Negative Urine Urobilinogen 0.2 Ur Leukocyte Esterase Negative Urine RBC 0-2 Urine WBC 0-2 Ur Squamous Epith Cells None Amorphous Sediment Few A Urine Bacteria Few A SARS-CoV-2 Ag (Rapid)
[2022-12-12 15:00] VITALS: BP 124/89; PULSE 94; RESP 18; TEMP 37.1; O2SAT 96
--- NOTE | 2022-12-12 19:23 | PC.NURSE ---
shift note: pt up 1/wheeled walker. pt has rt foot drop. pt states he has lt l/e spasms. palpated rt calf tightness. scd's in place. PP+ bilat. pt tolerating diet. pt medicated for cough. LS dim. Pt producing thick yellow phlegm. bilat l/e with multiple abrasions. IV patent.
[2022-12-12 21:45] VITALS: BP 182/93; PULSE 109; RESP 18; TEMP 36.9; O2SAT 97
[2022-12-12] MEDS: ENOXAPARIN 40 MG/0.4 ML INJ SUBCUT (21:55)
[2022-12-12] MEDS: GABAPENTIN 300 MG CAPSULE 600 MG PO (21:56)
[2022-12-12] MEDS: SENNOSIDES/DOCUSATE TABLET 1 TAB PO (21:57)
[2022-12-12] MEDS: MELATONIN 3 MG TABLET PO (22:54)
[2022-12-12] MEDS: LORazepam 0.5 MG TABLET PO (22:54)
--- NOTE | 2022-12-12 22:55 | PM.EN ---
Chart Event Note Date Seen: 12/12/22 Chart Event Note: Patient noted to have hyperpigmentation across metatarsals and extending into 2nd-4th toes, bruise vs infection vs ischemia. He did fall prior to admission. Foot is not cold during my exam. Patient has minimal sensation right lower extremity, but specifically denies severe pain. He would like to sleep this evening, XR ordered for the morning. Pending results, may need further imaging.
[2022-12-12 23:00] VITALS: BP 197/95; PULSE 105; RESP 18; O2SAT 96
[2022-12-13] VITALS (11 sets, daily range): BP systolic 95–179; BP diastolic 65–87; PULSE 78–130; RESP 16–20; TEMP 36.6–37.4; O2SAT 92–97
[2022-12-13 06:36] LABS: Basophils Absolute Auto 0.02 K/uL (0.00-0.30); Basophils Percent Auto 0.3 % (0.0-3.0); Eosinophils Absolute Auto 0.01 K/uL (0.00-0.50); Eosinophils Percent Auto 0.1 % (0.0-7.0); Hematocrit 44.8 % (37.0-53.0); Hemoglobin* 15.2 gm/dL (13.5-17.5); Lymphocytes Percent Auto 12.5 % (20-44); Mean Corpuscular HGB Conc 34 gm/dL (32-36); Mean Corpuscular Hemoglobin 31 pg (26-34); Mean Corpuscular Volume 90 fL (80-100); Monocytes Percent Auto 12.9 % (0.0-11.0); Neutrophils Percent Auto 74.2 % (42.0-72.0); Platelet Count* 144 K/uL (140-440); RDW Coefficient of Variation % 13.1 % (11.5-15.5); Red Blood Count 4.97 m/uL (4.30-5.90); White Blood Count* 7.05 K/uL (4.50-11.00)
[2022-12-13 06:56] LABS: Slide Review Reflex No
[2022-12-13 07:06] LABS: Chloride* 107 mmol/L (96-114); Potassium* 4.4 mmol/L (3.6-5.1); Sodium* 137 mmol/L (135-149)
[2022-12-13 07:09] LABS: Blood Urea Nitrogen* 15 mg/dL (7-30); Carbon Dioxide* 25 mmol/L (20-32); Creatinine* 0.9 mg/dL (0.5-1.5); Est. Creatinine Clearance* 57.93; Estimated Glomerular Filt Rate 86 ml/min
[2022-12-13 07:10] LABS: Calcium* 8.5 mg/dL (8.4-10.6); Glucose* 114 mg/dL (60-115)
--- NOTE | 2022-12-13 07:27 | PC.NURSE ---
END OF SHIFT NOTE: PT COVID POSITIVE. PLEASANT AND COOPERATIVE. CHEST CONGESTION. PRODUCTIVE COUGH. DENIES CP, SOB, N/V. AMBULATES WITH 4WW, AFO IN BOOT FOR RIGHT FOOT DROP AND A1. VS HYPERTENSIVE AND SLIGHTLY TACHYCARDIC?ON RA; AFEBRILE. AWARE, NO ORDER CHANGE. PT USES URINAL AT BEDSIDE. CALL LIGHT WITHIN PT?S REACH. PT WITH SWELLING AND BRUISING TO RIGHT FOOT; PLAN TO XRAY THIS MORNING.?
--- NOTE | 2022-12-13 08:00 | CRLHL7_ITS ---
For Patients: As a result of the Century Cures Act, medical imaging exams and procedure reports are released immediately into your electronic medical record. You may view this report before your referring provider. If you have questions, please contact your health care provider. Indication: Bruising over metatarsals. COVID positive Technique: A total of three views of the right foot were acquired.The study is somewhat limited due to portable technique and overlying garment. Comparison: None Findings: Bones: Demineralization. No obvious fracture or destructive process. 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 No gas within soft tissues. Impression: Limited study. No obvious fracture or destructive process. Osteoarthritis. Soft tissue swelling. No gas within soft tissues. Dictated by Abhilash Galicia MD @ 12/13/2022 9:03:42 AM (Electronically Signed)
[2022-12-13] MEDS: ACETAMINOPHEN 325 MG TABLET 975 MG PO (08:32)
[2022-12-13] MEDS: SENNOSIDES/DOCUSATE TABLET 1 TAB PO ×2 (08:32→21:13)
[2022-12-13] MEDS: METOPROLOL SUCCINATE (XL) 25 MG TAB PO (08:32)
[2022-12-13] MEDS: guaiFENesin 100 MG/ML CUP PO ×2 (08:35→21:18)
[2022-12-13] MEDS: SODIUM CHLORIDE 0.9 % (FLUSH) 10 ML SYRINGE 5 ML IVF ×2 (08:36→21:16)
[2022-12-13 09:52] LABS: Lactate* 1.5 mmol/L (0.5-1.9)
--- NOTE | 2022-12-13 10:47 | CRLHL7_ITS ---
For Patients: As a result of the Century Cures Act, medical imaging exams and procedure reports are released immediately into your electronic medical record. You may view this report before your referring provider. If you have questions, please contact your health care provider. INDICATION: Covid, tachycardia. TECHNIQUE: CT chest PE was acquired with 95 cc Isovue 370 IV contrast. COMPARISON: None. FINDINGS: Heart and vasculature: Contrast opacification of the pulmonary arterial tree is adequate. No sign of pulmonary embolism. Heart size is normal. Thoracic aorta and pulmonary artery are normal in caliber. Aortic arch coronary artery calcifications. Lungs and pleura: Mild peribronchial thickening greatest in the right upper and left lower lobes. No suspicious nodules or infiltrates. No pleural effusions, pleural thickening, or pneumothorax. Lymph nodes/mediastinum: No mediastinal, hilar, or axillary adenopathy. Chest wall: No masses. Upper abdomen: No acute or significant findings. Bones: Degenerative changes. Thoracolumbar hardware fixation. IMPRESSION: No pulmonary embolism, as questioned. Mild peribronchial thickening in the right upper and left lower lobe which could be seen in bronchitis/aspiration. No focal consolidations. Please note that all CT scans at this facility use dose modulation, iterative reconstruction, and/or weight-based dosing when appropriate to reduce radiation dose to as low as reasonably achievable. Dictated by Rasheed Alejandra MD @ 12/13/2022 12:58:16 PM (Electronically Signed)
--- NOTE | 2022-12-13 10:50 | P.IMPN_ITS ---
Progress Note: A&P Assessment and plan (1) COVID-19: Problem details: - treated with 3 day course of Remdesivir - no hypoxia, weakness is primary COVID symptom Status: Acute (2) Weakness: Problem details: - likely secondary to COVID - PT and OT following Status: Acute (3) Thrombocytopenia: Problem details: - no history of this per chart review, no evidence of acute bleeding, continue to follow Status: Acute (4) Muscle spasms of both lower extremities: Problem details: - chronic, likely main contributor to insomnia - currently controls with outpatient regimen of 600-900mg of gabapentin at [facility], in addition to melatonin and magnesium. Occasionally adds 0.5 mg of lorazepam Status: Acute (5) Tachycardia: Problem details: - Sinus tachycardia, asymptomatic. Continue to follow, on telemetry - TTE to be completed 12/13 - CT PE 12/13 performed. Per formal radiology read: No pulmonary embolism, mild peribronchial thickening in the right upper and left lower lobe which could be seen in bronchitis/aspiration. No focal consolidations. Status: Acute (6) Hypertension: Problem details: - continuing home dose of Metoprolol - lower BPs on admission, so HCTZ-Lisinopril held, restarted 12/13 with holding parameters Status: Acute (7) Traumatic ecchymosis of right foot: Problem details: - exam most consistent with ecchymosis from recent fall - reassuring XR and exam - normal pulses, normal lactate, no concerning pain - continue to follow clinically Status: Acute Plan - per above - Lovenox for ppx Subjective Date Seen: 12/13/22 Interval history: No acute events overnight, has continued to have intermittent sinus tachycardia, asymptomatic from this. R foot discoloration is stable. No pain (although notes that sensation is decreased 2/2 chronic neuropathy). Not requiring supplemental oxygen. Tolerating medications and therapies, weakness is slowly improving. Exam Narrative: Exam Narrative: GEN: Alert and oriented, sitting comfortably in bedside chair speaking in full sentences. Nontoxic in appearance HEENT: Normal external ears, EOMIs bilaterally, no scleral icterus CV: RRR, No concerning murmurs, rubs, or gallops R: LCTA bilaterally without concerning wheezing, rales, or rhonchi Ext: Mild (1+) pitting edema bilateral lower extremities, + palpable pulses bilaterally. No ttp, no crepitus Skin: Purplish discoloration again noted of distal right foot, extending into toes, appears most consistent with ecchymosis Neuro: Baseline for chronic conditions (right footdrop, stable) Psych: Appropriate Const: Vital Signs, click to edit/add: Vital Signs - 24 hr 12/12/22 15:00 12/12/22 15:00 12/12/22 21:45 Temperature 98.8 F 98.4 F Pulse Rate [Left R adial] 94 94 109 H Pulse Rate [Pulse Oximeter] Respiratory Rate 18 18 18 Blood Pressure [Le ft Arm] 182/93 H Blood Pressure [Ri ght Arm] 124/89 Pulse Oximetry 96 97 Oxygen Delivery Me thod Room Air Room Air 12/12/22 23:00 12/12/22 23:00 12/13/22 04:30 Temperature 98.5 F Pulse Rate [Left R adial] Pulse Rate [Pulse Oximeter] 105 H 105 H 117 H Respiratory Rate 18 18 18 Blood Pressure [Le ft Arm] 197/95 H 179/87 H Blood Pressure [Ri ght Arm] Pulse Oximetry 96 94 Oxygen Delivery Me thod Room Air Room Air 12/13/22 08:37 Temperature 99.4 F Pulse Rate [Left R adial] Pulse Rate [Pulse Oximeter] 130 H Respiratory Rate 20 Blood Pressure [Le ft Arm] 142/86 H Blood Pressure [Ri ght Arm] Pulse Oximetry 92 Oxygen Delivery Me thod Room Air Labs Labs: Laboratory Results - last 24 hr 12/13/22 12/13/22 12/13/22 06:18 06:18 09:35 WBC 7.05 RBC 4.97 Hgb 15.2 Hct 44.8 MCV 90 MCH 31 MCHC 34 RDW Coeff of Nikhil 13.1 Plt Count 144 Neut % (Auto) 74.2 H Lymph % (Auto) 12.5 L Douglas % (Auto) 12.9 H Eos % (Auto) 0.1 Baso % (Auto) 0.3 Neut # (Auto) 5.20 Lymph # (Auto) 0.90 [place] # (Auto) 0.90 Eos # (Auto) 0.01 Baso # (Auto) 0.02 Sodium 137 Potassium 4.4 Chloride 107 Carbon Dioxide 25 BUN 15 Creatinine 0.9 Estimated Creat Clear 57.93 Estimated GFR 86 Glucose 114 Lactate 1.5 Calcium 8.5 C-Reactive Protein 17.0 H
--- NOTE | 2022-12-13 13:33 | RESP.RT ---
Patient sitting up in chair, with PT, on room air, SaO2 94%, breathing regular/easy 18/minute. Bilateral Breath sounds with good air movement, very slightly diminished, no wheezing or grunting noted. Lungs CT; Mild peribronchial thickening in the right upper and left lower lobe which could be seen in bronchitis/aspiration. PEP started with patient to assist in lung recruitment and secretion mobilization when present. Demonstrated, instructed patient, who returned good exhalation effort with good chest shake. Had patient feel chest, he like the way it worked. Patient will need encouragement to continue to use Aerobika. Will continue to follow.
--- NOTE | 2022-12-13 14:05 | PC.NURSE ---
End of shift note: Patient had an Xray of foot this morning due to increased swelling and discoloration. MD reviewed. Okay to ambulate on right foot. Recommended to check a doppler to the right foot. Able to audibly hear a pulse with doppler. Spot was marked with an X on foot. Patient had a heart rate fo 130bpm this am, oxygen was at 92%. MD was notified and a CT of chest was obtained. EKG obtained and tele applied. Sinus tachycardia. Blood pressure was elevated overnight and today has been very soft. MD was notified. Metoprolol was given, other BP meds held today. Patient denies feeling dizzy and light headed. Was seen by OT/PT/RT today. Washed up with process description writer. Hair washed. Voided X3 this shift and had a large soft brown BM. Denies nausea. Lung sounds are coarse. Actively coughing up thick sputum. Knees have open sores on them. Covered with mepilex. Ambulated with assist of 1 and a walker. Alert and oriented X3. RA. Fox started today. Will have echo this afternoon.
--- NOTE | 2022-12-13 19:01 | PC.NURSE ---
End of shift-- Very pleasant and cooperative, alert and oriented patient. VSS and pt is afebrile. SPO2 maintained >90% on RA. He denied any pain. LS clear but diminished throughout. Pt c/o nasal congestion and an intermittent cough that increases with Aerobika use. Telemetry shows NSR. He denied nausea and ate 75% of a regular dinner without difficulty. Abrasions noted to both knees with Mepilex dressings that are C/D/I. Extensive bruising and swelling noted to right ankle and toes. He was up to the chair with SBA and tolerated it well. Report to oncoming shift.
[2022-12-13] MEDS: LORazepam 0.5 MG TABLET PO (21:13)
[2022-12-13] MEDS: ENOXAPARIN 40 MG/0.4 ML INJ SUBCUT (21:13)
[2022-12-13] MEDS: GABAPENTIN 300 MG CAPSULE 600 MG PO (21:13)
[2022-12-13] MEDS: MELATONIN 3 MG TABLET PO (21:13)
[2022-12-14] VITALS (8 sets, daily range): BP systolic 107–179; BP diastolic 75–94; PULSE 79–105; RESP 12–20; TEMP 36.4–37; O2SAT 95–99
--- NOTE | 2022-12-14 05:38 | PC.NURSE ---
Pt is alert and oriented x 4. Pt is a SBA with a walker for ADL?s. Pt uses urinal while standing and calls for assistance. Pt was calm, cooperative and pleasant during shift. Pt has had no complaints of pain during shift. Pt has mepilex dressing on both knees due to abrasions from fall both dry and intact. Scrapes on BLE. Right foot has ecchymosis no pain and pedal pulses 3 +.
[2022-12-14 06:55] LABS: Basophils Absolute Auto 0.02 K/uL (0.00-0.30); Basophils Percent Auto 0.3 % (0.0-3.0); Eosinophils Absolute Auto 0.07 K/uL (0.00-0.50); Eosinophils Percent Auto 1.1 % (0.0-7.0); Hematocrit 41.3 % (37.0-53.0); Hemoglobin* 13.9 gm/dL (13.5-17.5); Immature Granulocytes Abs Auto 0.01 K/uL (0.00-0.30); Immature Granulocytes Pct Auto 0.2 %; Lymphocytes Percent Auto 17.3 % (20-44); Mean Corpuscular HGB Conc 34 gm/dL (32-36); Mean Corpuscular Hemoglobin 30 pg (26-34); Mean Corpuscular Volume 89 fL (80-100); Monocytes Percent Auto 11.4 % (0.0-11.0); Neutrophils Absolute Auto 4.34 K/uL (1.7-7.0); Neutrophils Percent Auto 69.7 % (42.0-72.0); Platelet Count* 144 K/uL (140-440); RDW Coefficient of Variation % 12.9 % (11.5-15.5); Red Blood Count 4.64 m/uL (4.30-5.90); White Blood Count* 6.23 K/uL (4.50-11.00)
[2022-12-14 07:00] LABS: Slide Review Reflex No
[2022-12-14 07:09] LABS: Chloride* 108 mmol/L (96-114)
[2022-12-14 07:10] LABS: Potassium* 3.8 mmol/L (3.6-5.1); Sodium* 136 mmol/L (135-149)
[2022-12-14 07:12] LABS: Creatinine* 0.8 mg/dL (0.5-1.5); Est. Creatinine Clearance* 57.93; Estimated Glomerular Filt Rate 89 ml/min
[2022-12-14 07:13] LABS: Blood Urea Nitrogen* 18 mg/dL (7-30); Calcium* 8.1 mg/dL (8.4-10.6); Carbon Dioxide* 23 mmol/L (20-32); Glucose* 101 mg/dL (60-115)
[2022-12-14] MEDS: SODIUM CHLORIDE 0.9 % (FLUSH) 10 ML SYRINGE 5 ML IVF ×2 (08:40→21:27)
[2022-12-14] MEDS: SENNOSIDES/DOCUSATE TABLET 1 TAB PO ×2 (08:40→21:23)
[2022-12-14] MEDS: METOPROLOL SUCCINATE (XL) 25 MG TAB PO ×2 (08:40→10:48)
[2022-12-14] MEDS: ACETAMINOPHEN 325 MG TABLET 975 MG PO (09:42)
--- NOTE | 2022-12-14 11:27 | PM.IMPN1 ---
Progress Note: A&P Assessment and plan (1) Hypertension: Problem details: - continuing home dose of Metoprolol - lower BPs on admission, so HCTZ-Lisinopril held, restarted 12/13 with holding parameters Status: Acute Assessment and Plan: for 12/14: increase metoprolol XL from 25 mg to 50 mg; dc Lisinopril; hctz on hold (2) Tachycardia: Problem details: - Sinus tachycardia, asymptomatic. Continue to follow, on telemetry - CT PE 12/13 performed. Per formal radiology read: No pulmonary embolism, mild peribronchial thickening in the right upper and left lower lobe which could be seen in bronchitis/aspiration. No focal consolidations. TTE 12/13/22 Normal LV size, EF 68%, severe LV wall thickness increased from prior study Severe asymmetric LVH, no resting LVOT obstruction Aortic sinus dilation; maximum diameter 3.8cm Status: Acute Assessment and Plan: for 12/14: increase metoprolol XL from 25 mg to 50 mg (3) Muscle spasms of both lower extremities: Problem details: - chronic, likely main contributor to insomnia - currently controls with outpatient regimen of 600-900mg of gabapentin at night, in addition to melatonin and magnesium. Occasionally adds 0.5 mg of lorazepam Status: Acute (4) Thrombocytopenia: Problem details: - no history of this per chart review, no evidence of acute bleeding, continue to follow Status: Acute Assessment and Plan: 12/14: PLts have normalized (5) COVID-19: Problem details: - treated with 3 day course of Remdesivir - no hypoxia, weakness is primary COVID symptom Status: Acute (6) Weakness: Problem details: - likely secondary to COVID - PT and OT following Status: Acute Plan For today increase metoprolol for treatment of tachycardia; anticipated discharge tomorrow if HR controlled Subjective Date Seen: 12/14/22 Interval history: patient new to vt tachycardic this morning; metoprolol XL increased he denies chest pain and sob intermittent cough on room air per patient about 2-3 years ago he was on higher dose of metoprolol but dose decreased due to hypotension hctz and lisinopril held this AM due to hypotension Exam Narrative: Exam Narrative: Gen: no acute distress HEENT: NCAT EOMI mmm CV: tachycardic normal s1 s2 Lungs: CTAB Abd: Soft,nt, nd Neuro: Alert, oriented, CN grossly intact; nonfocal screening?exam Psych: appropriate affect MSK: age appropriate muscle mass Skin; Warm, dry no rash on face Const: Vital Signs, click to edit/add: Vital Signs - 24 hr 12/13/22 11:36 12/13/22 12:14 12/13/22 13:30 Temperature 97.9 F Pulse Rate Pulse Rate [Pulse Oximeter] 90 89 Respiratory Rate 20 20 18 Blood Pressure [Le ft Arm] 95/65 106/72 Blood Pressure [Ri ght Arm] Pulse Oximetry 96 95 94 Oxygen Delivery Me thod Room Air Room Air Room Air 12/13/22 16:24 12/13/22 15:53 12/13/22 15:00 Temperature 98.1 F Pulse Rate 84 Pulse Rate [Pulse Oximeter] 88 88 Respiratory Rate 16 16 Blood Pressure [Le ft Arm] 132/83 Blood Pressure [Ri ght Arm] Pulse Oximetry 97 Oxygen Delivery Me thod Room Air 12/13/22 20:00 12/13/22 23:00 12/13/22 23:00 Temperature 98.0 F 98.1 F Pulse Rate Pulse Rate [Pulse Oximeter] 78 92 92 Respiratory Rate 18 18 18 Blood Pressure [Le ft Arm] 160/82 H 150/84 H Blood Pressure [Ri ght Arm] Pulse Oximetry 96 97 Oxygen Delivery Me thod Room Air Room Air 12/13/22 23:00 12/14/22 03:15 12/14/22 08:30 Temperature 98.1 F Pulse Rate 91 Pulse Rate [Pulse Oximeter] 105 H 97 Respiratory Rate 16 18 Blood Pressure [Le ft Arm] 179/94 H Blood Pressure [Ri ght Arm] Pulse Oximetry 98 Oxygen Delivery Me thod Room Air 12/14/22 08:30 12/14/22 09:50 12/14/22 11:00 Temperature 98.1 F 98.1 F Pulse Rate 97 Pulse Rate [Pulse Oximeter] 97 96 Respiratory Rate 18 18 Blood Pressure [Le ft Arm] Blood Pressure [Ri ght Arm] 107/75 126/90 H Pulse Oximetry 97 96 Oxygen Delivery Me thod Room Air Room Air Labs Labs: Laboratory Results - last 24 hr 12/14/22 12/14/22 06:35 06:35 WBC 6.23 RBC 4.64 Hgb 13.9 Hct 41.3 MCV 89 MCH 30 MCHC 34 RDW Coeff of Nikhil 12.9 Plt Count 144 Neut % (Auto) 69.7 Lymph % (Auto) 17.3 L [place] % (Auto) 11.4 H Eos % (Auto) 1.1 Baso % (Auto) 0.3 Neut # (Auto) 4.34 Lymph # (Auto) 1.10 [place] # (Auto) 0.70 Eos # (Auto) 0.07 Baso # (Auto) 0.02 Sodium 136 Potassium 3.8 Chloride 108 Carbon Dioxide 23 BUN 18 Creatinine 0.8 Estimated Creat Clear 57.93 Estimated GFR 89 Glucose 101 Calcium 8.1 L C-Reactive Protein 15.0 H
--- NOTE | 2022-12-14 14:26 | RESP.RT ---
Patient sitting up in bed, on room air, SaO2 94%, breathing regular/easy 20/minute.? Bilateral Breath sounds with good air movement, very slightly diminished, no wheezing or grunting noted.? Lungs CT;?Mild peribronchial thickening in the right upper and left lower lobe which could be seen in bronchitis/aspiration.? PEP with patient to assist in lung recruitment and secretion mobilization when present.? Good exhalation effort with good chest shake.? Patient will need encouragement to continue to use Aerobika.? Will continue to follow.
--- NOTE | 2022-12-14 16:29 | PC.NURSE ---
PATIENT PLEASANT AND COOPERATIVE, ALERT AND ORIENTED, UP WITH SBA WITH WALKER TOLERATING WELL, ABLE TO WALK ABOUT ROOM WITHOUT SOB, TOLERATING REGULAR DIET ALTHOUGH NEEDS ENCOURAGEMENT TO ORDER MEAL, TELE NSR, BLOOD PRESSURE DECREASED THIS AM AND HELP 2 PO B/P MEDICATIONS MD AWARE AND NO OTHER CHANGES, PRODUCTIVE COUGH, PRN TYLENOL PER PATIENT REQUEST FOR MILD DISCOMFORT, PATIENT A BIT ANXIOUS REGARDING DISCHARGE MY FRIENDS KEEP TEXTING ME ABOUT MEALS AND SUPPORT WHEN I GET HOME, REASSURED PATIENT ABOUT DISCHARGE AND HELPING PATIENT ENSURE HE HAS WHAT HE NEEDS AT HOME, PATIENT VERBALIZED UNDERSTANDING.
--- NOTE | 2022-12-14 18:37 | PC.NURSE ---
End of Shift([id number]): Patient pleasant and cooperative. Patient vitally stable, lungs clear/diminished, on RA, BS WNL, IV intact. Patient SBA with walker. Patient denies pain. Patient used toilet x1, and tolerating regular diet. Up in chair for dinner. Right foot with +1 pitting edema. Mepilex on both LE intact. Tele=NSR
[2022-12-14] MEDS: ENOXAPARIN 40 MG/0.4 ML INJ SUBCUT (21:23)
[2022-12-14] MEDS: GABAPENTIN 300 MG CAPSULE 600 MG PO (21:23)
[2022-12-14] MEDS: MELATONIN 3 MG TABLET PO (21:26)
[2022-12-14] MEDS: LORazepam 0.5 MG TABLET PO (21:26)
[2022-12-15] MEDS: guaiFENesin 100 MG/ML CUP PO (03:10)
[2022-12-15 03:11] VITALS: BP 169/86; PULSE 96; RESP 16; TEMP 36.7; O2SAT 94
--- NOTE | 2022-12-15 06:55 | PC.NURSE ---
Pt is alert and oriented x 3. Pt?s posterior lungs sounds are diminished and pt has intermittent cough. Pt has productive cough that has?thick and clear colored sputum. Pt reports denies pain, N/V, Chest pain, and SOB. Pt up SBA with walker, gait belt and boot for foot drop to bathroom. Pt tolerating a regular diet. Pt slept intermittently throughout the night. ?
[2022-12-15 07:06] VITALS: PULSE 87
--- NOTE | 2022-12-15 09:46 | PC.SOCIAL ---
Addendum entered by CA Brantley 12/15/22 09:52: Phone call to pt's contact, Stone Pham, at [phone]. Informed that pt has the requested list for home school teacher care agencies in pt's room. Original Note: Provided information on home school teacher services to pt as requested. Social work will follow up as necessary.
[2022-12-15 09:51] VITALS: BP 164/96; PULSE 95; RESP 18; TEMP 36.7; O2SAT 94
--- NOTE | 2022-12-15 09:52 | P.DS_ITS ---
DS: Providers Provider Date Seen: 12/15/22 Date of admission: 12/13/22 10:25 Primary care physician: Robbie Maldonado MD Admitting Clinician: Aleta Zamora MD Consults: 12/11/22 21:26 Consult to Physical Therapy [CONS] Routine Comment: Reason(s) for PT Consult:: Evaluate and Treat Any Restrictions?:: No Restrictions Consult to Respiratory Therapy [CONS] Routine Comment: Reason(s) for RT Consult:: Consult 12/11/22 21:29 Consult to Occupational Therapy [CONS] Routine Comment: Reason(s) for OT Consult:: Evaluate and Treat Any Restrictions?:: No Restrictions 12/14/22 09:10 Consult to [employer] [CONS] Routine Comment: Reason for Consult:: Discharge Planning Needs Attending Physician on discharge: Jose Elaine Date of Discharge: 12/15/22 DS: Diagnosis Discharge Diagnosis (1) COVID-19: Status: Acute Problem details: - treated with 3 day course of Remdesivir - no hypoxia, weakness is primary COVID symptom (2) Hypertension: Status: Acute Problem details: Metoprolol XL increased from 25 to 50 mg lisinopril continued at 20 mg daily HCTZ stopped due to episodic hypotension (3) Tachycardia: Status: Acute Problem details: - Sinus tachycardia, asymptomatic. resolved with up titration of metoprolol - CT PE 12/13 performed. No pulmonary embolism, TTE 12/13/22 Normal LV size, EF 68%, severe LV wall thickness increased from prior study Severe asymmetric LVH, no resting LVOT obstruction Aortic sinus dilation; maximum diameter 3.8cm (4) Muscle spasms of both lower extremities: Status: Acute Problem details: - chronic, likely main contributor to insomnia - currently controls with outpatient regimen of 600-900mg of gabapentin at night, in addition to melatonin and magnesium. Occasionally adds 0.5 mg of lorazepam (5) Thrombocytopenia: Status: Acute Problem details: - no history of this per chart review, no evidence of acute bleeding, resolved (6) Weakness: Status: Acute Problem details: - likely secondary to COVID - PT and OT following DS: Summary Hospital Course Hospital Course: History of Present Illness Date Seen: 12/11/22 Chief complaint: Fall Narrative: Shane Rajput is a 82 year old male who presented to the emergency room for profound weakness that began this morning.? He fell at home and had to crawl to the phone to call for help to get up, he then had a friend drive him to the ER, and fell again upon arrival. There has been no preceding dizziness, lightheadedness, or palpitations.? He did not lay on the floor for an extended period of time. He did test positive for COVID at home this morning.? He endorses a mild cough and sore throat with nasal congestion.? He has not had shortness of breath or chest pain. ER course and findings: ?- negative chest x-ray ?- + COVID antigen ?- mild thrombocytopenia (platelets of 122, has not had a CBC in a few years but they were previously normal on chart review) Given patient's weakness and COVID positivity, in addition to the fact that he lives alone and has mobility concerns, he is admitted to the hospital. Past medical history updated below. PCP is Dr. Maldonado at the [facility]. He has received 5 COVID vaccinations. Patient lives independently, ambulates with a walker and brace on right lower extremity given foot drop. Please refer to hospital problem list for hospital course Status at Discharge Overall status at discharge: patient is back to baseline Time Spent with Patient Time attestation: Total time spent providing and/or coordinating discharge services: Time spent: Greater than 30 minutes Exam Narrative: Exam Narrative: Gen: no acute distress HEENT: NCAT EOMI mmm CV: RRR normal s1 s2 Lungs: CTAB Abd: Soft,nt, nd Neuro: Alert, oriented, CN grossly intact; nonfocal screening?exam Psych: appropriate affect MSK: age appropriate muscle mass Skin; Warm, dry no rash on face Const: Vital Signs, click to edit/add: Vital Signs - 24 hr 12/14/22 11:00 12/14/22 14:24 12/14/22 15:00 Temperature 98.1 F 97.6 F Pulse Rate Pulse Rate [Pulse Oximeter] 96 79 Respiratory Rate 18 20 12 Blood Pressure [Le ft Arm] 125/79 Blood Pressure [Ri ght Arm] 126/90 H Pulse Oximetry 96 96 96 Oxygen Delivery Me thod Room Air Room Air Room Air 12/14/22 15:00 12/14/22 15:00 12/14/22 19:00 Temperature 98.1 F Pulse Rate 80 Pulse Rate [Pulse Oximeter] 79 93 Respiratory Rate 12 18 Blood Pressure [Le ft Arm] 160/90 H Blood Pressure [Ri ght Arm] Pulse Oximetry 99 Oxygen Delivery Me thod Room Air 12/14/22 23:00 12/14/22 23:00 12/14/22 23:00 Temperature 98.6 F Pulse Rate 90 Pulse Rate [Pulse Oximeter] 86 Respiratory Rate 14 14 Blood Pressure [Le ft Arm] 135/80 Blood Pressure [Ri ght Arm] Pulse Oximetry 95 Oxygen Delivery Me thod Room Air 12/15/22 03:11 12/15/22 07:06 Temperature 98.0 F Pulse Rate 87 Pulse Rate [Pulse Oximeter] 96 Respiratory Rate 16 Blood Pressure [Le ft Arm] 169/86 H Blood Pressure [Ri ght Arm] Pulse Oximetry 94 Oxygen Delivery Me thod Room Air DS: Data Imaging CT- Other: Radiologist's impression: No pulmonary embolism, as questioned. Mild peribronchial thickening in the right upper and left lower lobe which could be seen in bronchitis/aspiration. No focal consolidations. Additional Comments Additional comments: Post hospital follow up PCP one week for HTN management Discharge Plan Discharge Disposition: Home, Self-Care Date of Admission: 12/13/22 10:25 Attending Provider on Discharge: Jose Elaine Primary Care Provider: Robbie Maldonado Condition: Improved Anticipated Discharge Date/Time: 12/15/22 09:39 Discharge Medications: New lisinopril 20 mg tablet 20 mg PO DAILY Qty: 30 0RF metoprolol succinate 50 mg tablet extended release 24 hr 50 mg PO DAILY Qty: 30 0RF Continued lorazepam 1 mg tablet 0.5 - 1 mg PO QPM PRN gabapentin 300 mg capsule 600 mg PO HS Rx Instructions: 2-3 caps at HS Discontinued lisinopril-hydrochlorothiazide 20-12.5 mg tablet 1 tab PO DAILY Label Comments: TAKE 1 TABLET BY MOUTH EVERY DAY metoprolol succinate 25 mg tablet extended release 24 hr 25 mg PO DAILY Label Comments: TAKE 1 TABLET BY MOUTH EVERY DAY IN THE MORNING Discharge Orders: Discharge Order (Routine); Ordered 12/15/22 Ordered By: Jose Elaine Patient Education: Metoprolol (By mouth), Lisinopril (By mouth), Hypertension (DC) Activity Level: Activity as Tolerated Discharge Diet: Other Diet Detail: Resume Previous home diet Follow Up Appointments: Robbie Maldonado MD [Primary Care Provider] - 03/21/23 1:40 pm (1) please follow up with primary care provider in 5 days for post hospital follow up and hypertension management 2) Please schedule outpatient physical therapy and occupational therapy appointments Follow up at [facility] in [place] with Dr. Maldonado.) Forms: [employer] Info Instructions
[2022-12-15] MEDS: SENNOSIDES/DOCUSATE TABLET 1 TAB PO (09:54)
[2022-12-15] MEDS: METOPROLOL SUCCINATE (XL) 50 MG TAB PO (09:54)
[2022-12-15] MEDS: lisinopriL 20 MG TABLET PO (09:54)
[2022-12-15 10:47] VITALS: RESP 18; O2SAT 94
--- NOTE | 2022-12-15 10:48 | RESP.RT ---
Patient sitting up in chair,? on room air, SaO2 94%, breathing regular/easy 20/minute.? Bilateral Breath sounds with good air movement, very slightly diminished, no wheezing or grunting noted.? PEP with patient to assist in lung recruitment and secretion mobilization when present.? Good exhalation effort with good chest shake.?? Patient using Aerobika PRN, reported getting good results.
== END 2022-12-15 11:25 | disposition home or self-care (01) | DRG 179 ==
LOC: ED 19:34 → MEDSURG 21:24
PROVIDERS: Admitting Provider Family Medicine; Emergency Provider Emergency Medicine Emergency Medical Services; PCP Family Medicine; Visit Provider Family Medicine
DX: U07.1 COVID-19 (principal); R53.1 Weakness; D69.6 Thrombocytopenia, unspecified; M62.838 Other muscle spasm; R00.0 Tachycardia, unspecified; I10 Essential (primary) hypertension; M21.379 Foot drop, unspecified foot; S80.212A Abrasion, left knee, initial encounter; S80.211A Abrasion, right knee, initial encounter; S90.31XA Contusion of right foot, initial encounter; W19.XXXA Unspecified fall, initial encounter; Z91.81 History of falling; Y92.009 Unspecified place in unspecified non-institutional (private) residence as the place of occurrence of the external cause; F32.A Depression, unspecified; M48.061 Spinal stenosis, lumbar region without neurogenic claudication; I44.0 Atrioventricular block, first degree; Z87.891 Personal history of nicotine dependence; G47.00 Insomnia, unspecified; Z96.659 Presence of unspecified artificial knee joint; Z96.649 Presence of unspecified artificial hip joint
CPT/HCPCS: 36415; 71045; 71260; 73630; 80048; 81001; 83605; 85025; 86140; 87086; 87426; 87502; 87634; 87635; 93005; 93306; 94664; 97110; 97116; 97161; 97165; 97530; 97535; 99285; G0378; A9270; J1650; J7050; J7120; Q9967

== ENCOUNTER 2023-03-18 09:11 | Outpatient (CLI) | payer MEDICARE, SELFPAY | END 2023-03-18 09:12 | disposition home or self-care (01) | LOC: AMB 03-22 10:12 | PROVIDERS: PCP Family Medicine; Visit Provider Family Medicine | DX: R55 Syncope and collapse (principal) | CPT/HCPCS: A0425; A0427 ==

== ENCOUNTER 2023-03-18 09:47 | Emergency (ER) | payer MEDICARE, SELFPAY ==
[2023-03-18] VITALS (16 sets, daily range): BP systolic 145–211; BP diastolic 77–102; PULSE 38–72; RESP 16–18; TEMP 36.4; O2SAT 90–100; BMI 29.6
--- NOTE | 2023-03-18 10:30 | ED_ITS ---
HPI - General Adult General Chief complaint: Syncope/Fainted Stated complaint: Syncopal Time Seen by Provider: 03/18/23 10:25 History of Present Illness HPI narrative: found by friend in his chair not responding right. found sitting/slumped in chair. pt c/o feeling tired. when he stood up from chair, he did fall to ground. skin tear on right leg. BS 100. denies pain. A&O upon arrival 82-year-old man presenting to the emergency department. He recalls getting ready to meet his friend for usual weekly coffee. Next thing he knows he is being woken up at the table. He seems to lost about 10 minutes of time. Was noted to be rather weak. Is not having any pain. Is not feeling chest pain or palpitations. No shortness of breath. No abdominal pain. No dysuria. No headache. Just is rather tired. No seizure history. No fever. Related Data Home Medications Medication Instructions Recorded Confirmed gabapentin 300 mg capsule 600 mg PO HS 04/22/22 03/18/23 lorazepam 1 mg tablet 0.5 - 1 mg PO QPM PRN 12/11/22 03/18/23 amlodipine 2.5 mg tablet 2.5 mg PO DAILY 03/18/23 03/18/23 oxycodone 5 mg tablet 5 mg PO Q4H PRN 03/18/23 03/18/23 Previous Rx's Medication Instructions Recorded lisinopril 20 mg tablet 20 mg PO DAILY #30 tabs 12/15/22 metoprolol succinate 50 mg 50 mg PO DAILY #30 tabs 12/15/22 tablet,extended release 24 hr cephalexin 500 mg tablet 500 mg PO TID 7 days #21 tabs 03/18/23 Allergies Allergy/AdvReac Type Severity Reaction Status Date / Time No Known Drug Allergies Allergy Verified 04/22/22 18:26 Review of Systems Status of ROS: Reports: 6 or more systems reviewed and unremarkable except as noted in History and below [facility] Medical History Muscle spasms of both lower extremities ?M62.838 - Other muscle spasm (ICD-10) Insomnia ?G47.00 - Insomnia, unspecified (ICD-10) Foot drop, right ?M21.371 - Foot drop, right foot (ICD-10) Depression ?F32.A - Depression, unspecified (ICD-10) Hypertension ?I10 - Essential (primary) hypertension (ICD-10) Lumbar stenosis ?M48.061 - Spinal stenosis, lumbar region without neurogenic claudication (ICD-10) Surgical History History of total knee arthroplasty ?Z96.659 - Presence of unspecified artificial knee joint (ICD-10) Hx of cataract surgery ?Z98.49 - Cataract extraction status, unspecified eye (ICD-10) H/O spinal fusion ?Z98.1 - Arthrodesis status (ICD-10) S/P hip replacement ?Z96.649 - Presence of unspecified artificial hip joint (ICD-10) History of carpal tunnel release ?Z98.890 - Other specified postprocedural states (ICD-10) Social History Narrative: Lives alone in [place]. No living children, son 2-3 years ago. Niece Aleyda Rajput in [place] or friends Woo and Joanne Noelrath would be medical decision makers if needed. Full code status. 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 Quit smoking in the 1980s, no ETOH use. Smoking Status: Former smoker Do you use any of these nicotine containing products: None Second hand tobacco smoke exposure: No How often do you have a drink containing alcohol: never How often do you have six or more drinks on one occasion: Never AUDIT-C Alcohol total score: 0 Non-prescribed substance use: denies use service: No Exam Narrative: Exam Narrative: Very pleasant. Talkative. NAD. Sticky oropharynx. Head looks to be atraumatic. Cranial nerves 2-12 to be intact. GCS of 15. Skin is warm and dry. Heart with slow rate but regular rhythm. Does take a beta-opal. Brace on right lower leg with 1+ pitting edema. Abdomen is tympanitic in the upper abdomen. Full. Little overweight. Soft. Nontender. Normoactive bowel sounds. Lungs appear to be clear. Const: Vital Signs, click to edit/add: Vital Signs - 24 hr 03/18/23 09:50 03/18/23 10:00 03/18/23 10:00 Temperature 97.5 F L Pulse Rate Pulse Rate [Right Pulse Oximeter] 55 L 54 L Pulse Rate [orthos tatic lying Pulse Oximeter] Pulse Rate [orthos tatic sitting Puls e Oximeter] Pulse Rate [orthos tatic standing Pul se Oximeter] Respiratory Rate 18 16 Blood Pressure Blood Pressure [Le ft Upper Arm] 157/102 H 146/80 H Blood Pressure [or thostatic lying Le ft Arm] Blood Pressure [or thostatic sitting Left Arm] Blood Pressure [or thostatic standing Left Arm] Pulse Oximetry 100 98 98 Oxygen Delivery Me thod Room Air Room Air 03/18/23 10:30 03/18/23 10:40 03/18/23 11:00 Temperature Pulse Rate 51 L 51 L Pulse Rate [Right Pulse Oximeter] 53 L Pulse Rate [orthos tatic lying Pulse Oximeter] Pulse Rate [orthos tatic sitting Puls e Oximeter] Pulse Rate [orthos tatic standing Pul se Oximeter] Respiratory Rate Blood Pressure Blood Pressure [Le ft Upper Arm] 152/83 H Blood Pressure [or thostatic lying Le ft Arm] Blood Pressure [or thostatic sitting Left Arm] Blood Pressure [or thostatic standing Left Arm] Pulse Oximetry 98 99 97 Oxygen Delivery Me thod 03/18/23 11:01 03/18/23 11:30 03/18/23 11:30 Temperature Pulse Rate 51 L 49 L Pulse Rate [Right Pulse Oximeter] Pulse Rate [orthos tatic lying Pulse Oximeter] 38 L Pulse Rate [orthos tatic sitting Puls e Oximeter] 40 L Pulse Rate [orthos tatic standing Pul se Oximeter] 42 L Respiratory Rate Blood Pressure 150/86 H Blood Pressure [Le ft Upper Arm] Blood Pressure [or thostatic lying Le ft Arm] 159/89 H Blood Pressure [or thostatic sitting Left Arm] 174/91 H Blood Pressure [or thostatic standing Left Arm] 211/102 H Pulse Oximetry 98 98 Oxygen Delivery Me thod 03/18/23 11:31 03/18/23 11:40 03/18/23 11:43 Temperature Pulse Rate 51 L 72 72 Pulse Rate [Right Pulse Oximeter] Pulse Rate [orthos tatic lying Pulse Oximeter] Pulse Rate [orthos tatic sitting Puls e Oximeter] Pulse Rate [orthos tatic standing Pul se Oximeter] Respiratory Rate Blood Pressure 155/82 H 159/89 H 174/91 H Blood Pressure [Le ft Upper Arm] Blood Pressure [or thostatic lying Le ft Arm] Blood Pressure [or thostatic sitting Left Arm] Blood Pressure [or thostatic standing Left Arm] Pulse Oximetry 98 95 90 Oxygen Delivery Me thod 03/18/23 11:44 03/18/23 11:46 03/18/23 12:00 Temperature Pulse Rate 65 58 L 47 L Pulse Rate [Right Pulse Oximeter] Pulse Rate [orthos tatic lying Pulse Oximeter] Pulse Rate [orthos tatic sitting Puls e Oximeter] Pulse Rate [orthos tatic standing Pul se Oximeter] Respiratory Rate Blood Pressure 211/102 H Blood Pressure [Le ft Upper Arm] Blood Pressure [or thostatic lying Le ft Arm] Blood Pressure [or thostatic sitting Left Arm] Blood Pressure [or thostatic standing Left Arm] Pulse Oximetry 99 98 95 Oxygen Delivery Me thod 03/18/23 12:02 03/18/23 12:30 03/18/23 12:31 Temperature Pulse Rate 48 L 51 L 50 L Pulse Rate [Right Pulse Oximeter] Pulse Rate [orthos tatic lying Pulse Oximeter] Pulse Rate [orthos tatic sitting Puls e Oximeter] Pulse Rate [orthos tatic standing Pul se Oximeter] Respiratory Rate Blood Pressure 145/77 H 154/88 H Blood Pressure [Le ft Upper Arm] Blood Pressure [or thostatic lying Le ft Arm] Blood Pressure [or thostatic sitting Left Arm] Blood Pressure [or thostatic standing Left Arm] Pulse Oximetry 97 95 97 [facility] has reviewed patient's vital signs: yes Course Vital Signs Vital signs: Initial Vital Signs Temperature 97.5 F L 03/18/23 09:50 Temperature Source Temporal Artery Scan 03/18/23 09:50 Pulse Rate 55 L 03/18/23 09:50 Respiratory Rate 18 03/18/23 09:50 Blood Pressure 157/102 H 03/18/23 09:50 Blood Pressure Mean 120 H 03/18/23 09:50 Blood Pressure Position Sitting 03/18/23 09:50 Pulse Oximetry 100 03/18/23 09:50 Oxygen Delivery Method Room Air 03/18/23 09:50 Vital Signs Temperature 97.5 F L 03/18/23 09:50 Pulse Rate 55 L 03/18/23 09:50 Respiratory Rate 18 03/18/23 09:50 Blood Pressure 157/102 H 03/18/23 09:50 Pulse Oximetry 100 03/18/23 09:50 Oxygen Delivery Method Room Air 03/18/23 09:50 Temperature 97.5 F L 03/18/23 09:50 Pulse Rate 50 L 03/18/23 12:31 Respiratory Rate 16 03/18/23 10:00 Blood Pressure 154/88 H 03/18/23 12:31 Pulse Oximetry 97 03/18/23 12:31 Oxygen Delivery Method Room Air 03/18/23 10:00 Medical Decision Making MDM Narrative Medical decision making narrative: Seems to be more of a transient global amnesia. I would look for signs of infection here though particularly given his fatigue. No history of seizures. Will continue to monitor though in the emergency department. May have been arrhythmia as well. Monitor on satellite project site monitor. Look for evidence of pulmonary embolus or ischemic heart disease. Look for electrolyte abnormalities. EKG in the bradycardia. He does receive a beta-opal. Has been with higher pulse on review of records in the past. Head CT reviewed by me and over-read by Radiology with chronic changes. Labs are overall reassuring with normal white count. D-dimer just a little bit elevated but well within range for age. Negative troponins. However urinalysis suggests urinary tract infection including presence of nitrite and white cells. Received normal saline and Rocephin IV. Quite improved prior to departure. More energy. See patient discharge Lab Data Lab results reviewed: Yes I reviewed the patient's lab results Labs: Lab Results 03/18/23 03/18/23 03/18/23 Range/Units 10:10 10:29 11:10 WBC 6.39 (4.50-11.00) K/uL RBC 4.98 (4.30-5.90) m/uL Hgb 15.0 (13.5-17.5) gm/dL Hct 45.1 (37.0-53.0) % MCV 91 (80-100) fL MCH 30 (26-34) pg MCHC 33 (32-36) gm/dL RDW Coeff of Nikhil 13.1 (11.5-15.5) % Plt Count 176 (140-440) K/uL Neut % (Auto) 65.2 (42.0-72.0) % Lymph % (Auto) 20.8 (20-44) % [place] % (Auto) 9.4 (0.0-11.0) % Eos % (Auto) 3.8 (0.0-7.0) % Baso % (Auto) 0.6 (0.0-3.0) % Neut # (Auto) 4.17 (1.7-7.0) K/uL Lymph # (Auto) 1.33 (0.90-2.90) K/uL [place] # (Auto) 0.60 (0.00-0.90) K/UL Eos # (Auto) 0.24 (0.00-0.50) K/uL Baso # (Auto) 0.04 (0.00-0.30) K/uL D-Dimer Quant (PE/DVT) 0.64 H (0.00-0.50) ug/ml Sodium 139 (135-149) mmol/L Potassium 4.6 (3.6-5.1) mmol/L Chloride 109 (96-114) mmol/L Carbon Dioxide 22 (20-32) mmol/L BUN 36 H (7-30) mg/dL Creatinine 1.1 (0.5-1.5) mg/dL Estimated Creat Clear 50.95 Estimated GFR 67 ml/min Glucose 88 (60-115) mg/dL Lactate 1.4 (0.5-1.9) mmol/L Calcium 8.6 (8.4-10.6) mg/dL Magnesium 2.5 (1.5-2.6) mg/dL Total Bilirubin 0.7 (0.1-1.5) mg/dL Direct Bilirubin 0.2 (0.0-0.5) mg/dL AST 25 (12-35) U/L ALT 22 (4-50) U/L Alkaline Phosphatase 96 (40-150) U/L Troponin I < 0.01 L (0.01-0.04) ng/mL C-Reactive Protein 1.1 H (0.5-1.0) mg/dL NT-Pro-B Natriuret Pep 33 pg/mL Total Protein 7.7 (6.0-8.3) g/dL Albumin 4.2 (3.3-5.0) g/dL Urine Color (Yellow) Urine Appearance (Clear) Urine pH (5.0-8.5) Ur Specific [place] (1.000-1.030) Urine Protein (Negative) Urine Glucose (UA) (Negative) Urine Ketones (Negative) Urine Blood (Negative) Urine Nitrite (Negative) Urine Bilirubin (Negative) Urine Urobilinogen (0.2-1.0) Ur Leukocyte Esterase (Negative) Urine RBC (0-2) Urine WBC (0-5) Ur Squamous Epith Cells (None-Few) Amorphous Sediment (None) Urine Bacteria (None) Urine Opiates Screen (Negative) Ur Oxycodone Screen (Negative) Urine Methadone Screen (Negative) Ur Propoxyphene Screen (Negative) Ur Barbiturates Screen (Negative) U Tricyclic Antidepress (Negative) Ur Phencyclidine Scrn (Negative) Ur Amphetamines Screen (Negative) U Methamphetamines Scrn (Negative) U Benzodiazepines Scrn (Negative) Urine Cocaine Screen (Negative) U Marijuana (THC) Screen (Negative) Ur Drug Screen Comment Ethyl Alcohol < 0.01 L (0.01-0.03) % POC Troponin I 0.00 L (0.01-0.04) ng/ml 03/18/23 Range/Units 11:45 WBC (4.50-11.00) K/uL RBC (4.30-5.90) m/uL Hgb (13.5-17.5) gm/dL Hct (37.0-53.0) % MCV (80-100) fL MCH (26-34) pg MCHC (32-36) gm/dL RDW Coeff of Nikhil (11.5-15.5) % Plt Count (140-440) K/uL Neut % (Auto) (42.0-72.0) % Lymph % (Auto) (20-44) % [place] % (Auto) (0.0-11.0) % Eos % (Auto) (0.0-7.0) % Baso % (Auto) (0.0-3.0) % Neut # (Auto) (1.7-7.0) K/uL Lymph # (Auto) (0.90-2.90) K/uL [place] # (Auto) (0.00-0.90) K/UL Eos # (Auto) (0.00-0.50) K/uL Baso # (Auto) (0.00-0.30) K/uL D-Dimer Quant (PE/DVT) (0.00-0.50) ug/ml Sodium (135-149) mmol/L Potassium (3.6-5.1) mmol/L Chloride (96-114) mmol/L Carbon Dioxide (20-32) mmol/L BUN (7-30) mg/dL Creatinine (0.5-1.5) mg/dL Estimated Creat Clear Estimated GFR ml/min Glucose (60-115) mg/dL Lactate (0.5-1.9) mmol/L Calcium (8.4-10.6) mg/dL Magnesium (1.5-2.6) mg/dL Total Bilirubin (0.1-1.5) mg/dL Direct Bilirubin (0.0-0.5) mg/dL AST (12-35) U/L ALT (4-50) U/L Alkaline Phosphatase (40-150) U/L Troponin I (0.01-0.04) ng/mL C-Reactive Protein (0.5-1.0) mg/dL NT-Pro-B Natriuret Pep pg/mL Total Protein (6.0-8.3) g/dL Albumin (3.3-5.0) g/dL Urine Color Yellow (Yellow) Urine Appearance Clear (Clear) Urine pH 6.0 (5.0-8.5) Ur Specific [place] 1.020 (1.000-1.030) Urine Protein Negative (Negative) Urine Glucose (UA) Negative (Negative) Urine Ketones Negative (Negative) Urine Blood Trace-intact A (Negative) Urine Nitrite Positive A (Negative) Urine Bilirubin Negative (Negative) Urine Urobilinogen 0.2 (0.2-1.0) Ur Leukocyte Esterase 1+ A (Negative) Urine RBC 2-5 A (0-2) Urine WBC 10-25 A (0-5) Ur Squamous Epith Cells Few (None-Few) Amorphous Sediment Moderate A (None) Urine Bacteria Moderate A (None) Urine Opiates Screen Negative (Negative) Ur Oxycodone Screen Negative (Negative) Urine Methadone Screen Negative (Negative) Ur Propoxyphene Screen Negative (Negative) Ur Barbiturates Screen Negative (Negative) U Tricyclic Antidepress Negative (Negative) Ur Phencyclidine Scrn Negative (Negative) Ur Amphetamines Screen Negative (Negative) U Methamphetamines Scrn Negative (Negative) U Benzodiazepines Scrn Negative (Negative) Urine Cocaine Screen Negative (Negative) U Marijuana (THC) Screen Negative (Negative) Ur Drug Screen Comment See Note Ethyl Alcohol (0.01-0.03) % POC Troponin I (0.01-0.04) ng/ml ECG Data Attestation: I personally reviewed and interpreted this ECG as follows: (Sinus rhythm and bradycardia. First-degree AV block. No acute ischemic changes) Discharge Plan Discharge Clinical Impression: Urinary tract infection, Transient amnesia Patient Disposition: Home, Self-Care Condition: Improved Additional Instructions: Stay well-hydrated. Return for increasing weakness, associated fever. Urine culture will be pending here. Cephalexin from [facility]. Prescriptions: New cephalexin 500 mg tablet 500 mg PO TID 7 Days Qty: 21 0RF No Action lorazepam 1 mg tablet 0.5 - 1 mg PO QPM PRN lisinopril 20 mg tablet 20 mg PO DAILY Qty: 30 0RF metoprolol succinate 50 mg tablet extended release 24 hr 50 mg PO DAILY Qty: 30 0RF amlodipine 2.5 mg tablet 2.5 mg PO DAILY oxycodone 5 mg tablet 5 mg PO Q4H PRN gabapentin 300 mg capsule 600 mg PO HS Rx Instructions: 2-3 caps at HS Follow Up/Referrals: Robbie Maldonado MD [Primary Care Provider] - Stand Alone Forms: [employer] Info Instructions
--- NOTE | 2023-03-18 10:30 | ED.NURSE ---
Patient was preparing for coffee with a friend this morning at his home, they do this almost daily. Friend usually arrives around 0850. Patient was sitting at kitchen table about 0830, notes he fell asleep and woke up at 0840. Was still alone, fell asleep again and was out of it until his friend arrived and woke him up around [id number]. Patient notes he was seated at the dining table, did not fall or incur any injuries. 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 No other injuries with this fall.
--- NOTE | 2023-03-18 10:42 | CRLHL7_ITS ---
For Patients: As a result of the Century Cures Act, medical imaging exams and procedure reports are released immediately into your electronic medical record. You may view this report before your referring provider. If you have questions, please contact your health care provider. INDICATION: Transient global amnesia, weakness. TECHNIQUE: CT head without contrast. COMPARISON: None. FINDINGS: CSF spaces: Mild diffuse parenchymal volume loss. Brain parenchyma and extra-axial spaces: Mild chronic white matter ischemic disease. The souza-white differentiation is normal. No sign of mass, hemorrhage, or midline shift. No extra-axial fluid collection. Skull base and calvarium: The visualized paranasal sinuses and mastoid air cells demonstrate no acute or significant findings. The visualized orbits are grossly unremarkable. No skull fractures. IMPRESSION: No acute intracranial abnormality on this noncontrast study or significant interval change when compared to prior study. Mild diffuse parenchymal volume loss and chronic white matter ischemic disease. Please note that all CT scans at this facility use dose modulation, iterative reconstruction, and/or weight-based dosing when appropriate to reduce radiation dose to as low as reasonably achievable. Dictated by Rasheed Alejandra MD @ 03/18/2023 12:01:49 PM (Electronically Signed)
--- NOTE | 2023-03-18 10:53 | ED.NURSE ---
Lab in room
[2023-03-18 10:58] LABS: Basophils Absolute Auto 0.04 K/uL (0.00-0.30); Basophils Percent Auto 0.6 % (0.0-3.0); Eosinophils Absolute Auto 0.24 K/uL (0.00-0.50); Eosinophils Percent Auto 3.8 % (0.0-7.0); Hematocrit 45.1 % (37.0-53.0); Immature Granulocytes Abs Auto 0.01 K/uL (0.00-0.30); Immature Granulocytes Pct Auto 0.2 %; Lymphocytes Absolute Auto 1.33 K/uL (0.90-2.90); Lymphocytes Percent Auto 20.8 % (20-44); Mean Corpuscular HGB Conc 33 gm/dL (32-36); Mean Corpuscular Hemoglobin 30 pg (26-34); Mean Corpuscular Volume 91 fL (80-100); Monocytes Percent Auto 9.4 % (0.0-11.0); Neutrophils Absolute Auto 4.17 K/uL (1.7-7.0); Neutrophils Percent Auto 65.2 % (42.0-72.0); Platelet Count* 176 K/uL (140-440); RDW Coefficient of Variation % 13.1 % (11.5-15.5); Red Blood Count 4.98 m/uL (4.30-5.90); White Blood Count* 6.39 K/uL (4.50-11.00)
[2023-03-18 11:09] LABS: Slide Review Reflex No
[2023-03-18 11:11] LABS: Chloride* 109 mmol/L (96-114)
[2023-03-18 11:12] LABS: Potassium* 4.6 mmol/L (3.6-5.1); Sodium* 139 mmol/L (135-149)
[2023-03-18 11:14] LABS: Creatinine* 1.1 mg/dL (0.5-1.5); Est. Creatinine Clearance* 50.95; Estimated Glomerular Filt Rate 67 ml/min
[2023-03-18 11:15] LABS: Blood Urea Nitrogen* 36 mg/dL (7-30); Carbon Dioxide* 22 mmol/L (20-32); Glucose* 88 mg/dL (60-115)
[2023-03-18 11:16] LABS: Calcium* 8.6 mg/dL (8.4-10.6)
[2023-03-18 11:17] LABS: D Dimer Quantitative* 0.64 ug/ml (0.00-0.50)
[2023-03-18 11:18] LABS: C Reactive Protein* 1.1 mg/dL (0.5-1.0)
[2023-03-18 11:20] LABS: Lactate* 1.4 mmol/L (0.5-1.9)
[2023-03-18 11:28] LABS: Ethanol* < 0.01 % (0.01-0.03); Troponin I* < 0.01 ng/mL (0.01-0.04)
[2023-03-18 11:36] LABS: Albumin* 4.2 g/dL (3.3-5.0)
[2023-03-18] MEDS: 0.9 % SODIUM CHLORIDE 1000 ml 1,000 ML IV (11:36)
[2023-03-18 11:39] LABS: Alanine Aminotransferase* 22 U/L (4-50); Alkaline Phosphatase* 96 U/L (40-150); Aspartate Amino Transferase* 25 U/L (12-35); Bilirubin Direct* 0.2 mg/dL (0.0-0.5); Bilirubin Total* 0.7 mg/dL (0.1-1.5); Magnesium* 2.5 mg/dL (1.5-2.6); Total Protein* 7.7 g/dL (6.0-8.3)
[2023-03-18 11:51] LABS: NT Pro B Type NatriureticPept* 33 pg/mL
[2023-03-18 12:01] LABS: Appearance Urine Clear (Clear); Bilirubin Urine Negative (Negative); Blood Urine Trace-intact (Negative); Color Urine Yellow (Yellow); Glucose Urine Negative (Negative); Ketones Urine Negative (Negative); Leukocyte Esterase Urine 1+ (Negative); Nitrite Urine Positive (Negative); Protein Urine Negative (Negative); Urobilinogen Urine 0.2 (0.2-1.0)
[2023-03-18 12:06] LABS: Amphetamine Screen Urine Negative (Negative); Barbiturate Screen Urine Negative (Negative); Benzodiazepines Screen Urine Negative (Negative); Cannabinoid Screen Urine Negative (Negative); Cocaine Screen Urine Negative (Negative); Methadone Screen Urine Negative (Negative); Methamphetamines Screen Urine Negative (Negative); Opiate Screen Urine Negative (Negative); Oxycodone Screen Urine Negative (Negative); Phencyclidine Screen Urine Negative (Negative); Tricyclic Antidepressant Urine Negative (Negative)
[2023-03-18 12:08] LABS: Amorphous Sediment Urine Moderate; Bacteria Urine Moderate; Squamous Epithelial Cell Urine Few (None-Few)
[2023-03-18] MEDS: cefTRIAXone 1 GM in 0.9 % SODIUM CHLORIDE Mini-bag 100 ML IVPB (13:21)
== END 2023-03-18 14:06 | disposition home or self-care (01) ==
PROVIDERS: Emergency Provider Family Medicine; PCP Family Medicine
DX: N39.0 Urinary tract infection, site not specified (principal); G45.4 Transient global amnesia
CPT/HCPCS: 36415; 70450; 80048; 80076; 80306; 81001; 82077; 83605; 83735; 83880; 84484; 85025; 85379; 86140; 87040; 87086; 87186; 93005; 96374; 99284; J0696; J7030

== ENCOUNTER 2023-09-30 09:16 | Outpatient (CLI) | payer MEDICARE, SELFPAY | END 2023-09-30 09:17 | disposition home or self-care (01) | PROVIDERS: PCP Family Medicine; Visit Provider Emergency Medicine | DX: R41.0 Disorientation, unspecified (principal) | CPT/HCPCS: A0998 ==

== ENCOUNTER 2024-12-21 09:59 | Emergency (ER) | payer MEDICARE, SELFPAY ==
--- OUTSIDE RECORDS SUMMARY | 2024-12-21 10:02 | XMS_ITS | Continuity of Care Document ---
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 Name Role Phone Sebastián West Unavailable Unavailable Allergies, Adverse Reactions, Alerts Substance Reaction Status Criticality No Known Allergies Active No Inform ation Medications Medication Instructions Dosage Effective Dates (start - stop) Status Comments B COMPLEX (unknown strength) Not Available - Active TRAMADOL HCL (unknown strength) Not Available - Active SENNOSIDES-DOCUSATE SODIUM (unknown strength) Not Available - Active OMEGA-3 (unknown strength) Not Available - Active MAGNESIUM CITRATE (unknown strength) Not Available - Active GABAPENTIN (unknown strength) Not Available - Active ACETAMINOPHEN (unknown strength) Not Available - Active TYLENOL (unknown strength) Not Available - Active LORAZEPAM (unknown strength) Not Available - Active METOPROLOL SUCCINATE (unknown strength) Not Available - Active Medrol (René) 4 mg tablets in a dose pack take by Oral route As Directed Not Available - No Longer Active NAPROXEN (unknown strength) Not Available - No Longer Active Procedures Procedure Date Office/Outpatient Visit,Est, Mod 2021 Office/Outpatient Visit,Est, Mod 2020 Office/Outpatient Visit,Est, Mod 2019 Office/Outpatient Visit,Est, Mod 2018 Office/Outpatient Visit,Est, Mod 2018 Office/Outpatient Visit,Est, Mod 2018 Postop Followup Visit X Ray Exam Entire Spine 2/3 VW 19 Lateral Thoracic Spine Fusion 8 DECOMPRESS SPINAL CORD THRC Thorax Spine Fusion, Posterolateral Insert interbody cage w/fusion 18 Insert Spine Fixation, Posterior 2017 Autograft, Spine Surgery, Local 018 Allograft, Spine Surg, Morselized X-Ray Exam Of Trunk Spine 2 Views Office/Outpatient Visit,Est, Mod 2016 Postop Followup Visit X-Ray Exam Of Trunk Spine 2 Views Thorax Spine Fusion, Posterolateral Spine Fusion, Each Add'Lvertebra 2015 Remove Thoracic Spine Lamina, 1 Seg Remove Added Spine Lamina, 1 Seg 2015 Insert Spine Seg Fix, Post, 3-6 Seg Autograft, Spine Surgery, Local 016 Allograft, Spine Surg, Morselized Pa Assist Thorax Spine Fusion, Posterola teral Pa Assist Spine Fusion, Each Add'Lverteb ra Remove Thoracic Spine Lamina, 1 Seg Pa Assist Remove Added Spine Lamina, 1 S eg Pa Assist Insert Spine Seg Fix, Post, 3- 6 Seg Office/Outpatient Visit,New, Mod 2015 Office/Outpatient Visit,Est, Mod 2012 X-Ray Exam Lower Spine 2-3 Views 2012 Office/Outpatient Visit,Est, Low 2011 X-Ray Exam Lower Spine 2-3 Views 2011 Office/Outpatient Visit,Est, Mod 2011 X-Ray Exam Lower Spine 2-3 Views 2011 Office/Outpatient Visit,Est, Mod 2011 X-Ray Exam Lower Spine 2-3 Views 2011 Office/outpatient visit,est, low 2010 X-ray exam lower spine 2-3 views 2010 Postop followup visit X-ray exam lower spine 2-3 views 2010 Postop followup visit X-ray exam lower spine 2-3 views 2010 Lumbar spine fusion, posterolateral Spine fusion, each add'lvertebra 2010 Lumbar spine fusion w/bone graft 2010 Bilateral Low back disk surgery/decompre ss Decompress lumbar spinalcord seg 2010 Remove spine seg fixation dev, post Insert spine seg fix, post, 3-6 seg Apply spinal prosthetic device 11 Allograft, spine surg, morselized Autograft, spine surgery, local 011 PA Assist Lumbar spine fusion, posterola teral PA Assist Spine fusion, each add'lverteb ra Bilateral PA Low back disk surgery/decom press PA Assist Decompress lumbar spinalcord s eg PA Assist Remove spine seg fixation dev, post Office/outpatient visit,est, low 2010 X-ray exam of total spine Office/outpatient visit,est, low 2010 X-ray exam lower spine 2-3 views 2010 Office/outpatient visit,est, low 2009 X-ray exam lower spine 2-3 views 2009 Office/outpatient visit,est, low 2008 X-ray exam lower spine 2-3 views 2008 Office/outpatient visit,est, low 2008 X-ray exam lower spine 2-3 views 2008 Office/outpatient visit,est, low 2008 X-ray exam lower spine 2-3 views 2008 Office/outpatient visit,est, mod 2008 X-ray exam lower spine 2-3 views 2008 Postop followup visit X-ray exam lower spine 2-3 views 2007 Lumbar spine fusion, posterolateral Insert spine seg fix, post, 3-6 seg Insert pelvic fixation device 8 Allograft, spine surg, morselized Remove spine seg fixation dev, post PA Assist Lumbar spine fusion, posterola teral PA Assist Insert spine seg fix, post, 3- 6 seg PA Assist Insert pelvic fixation device PA Assist Remove spine seg fixation dev, post Office/outpatient visit,est, low 2007 X-ray exam lower spine 2-3 views 2007 Postop followup visit X-ray exam lower spine 2-3 views 2007 Postop followup visit Lumbar spine fusion, posterolateral Spine fusion, each add'lvertebra 2007 Lumbar spine fus, pstr intrbdy sngl Lumb spine fus, pstr intrbdy ea add Insert spine seg fix, post, 3-6 seg Apply spinal prosthetic device 08 Allograft, spine surg, morselized Autograft, spine surgery, local 008 Decompress lumbar spinalcord seg 2007 Decompress added spinal cord segmnt PA Assist Lumbar spine fusion, posterola teral PA Assist Spine fusion, each add'lverteb ra PA Assist Lumbar spine fus, pstr intrbdy sngl PA Assist Lumb spine fus, pstr intrbdy e a add PA Assist Insert spine seg fix, post, 3- 6 seg PA Assist Apply spinal prosthetic device PA Assist Decompress lumbar spinalcord s eg PA Assist Decompress added spinal cord s egmnt Office/outpatient visit,est, low 2007 X-ray exam of total spine Office/outpatient visit,est, low 2007 Office/outpatient visit,est, low 2007 X-ray exam lower spine 2-3 views 2007 Office/outpatient visit,est, low 2006 X-ray exam lower spine 2-3 views 2006 Office/outpatient visit,est, low 2006 Office/outpatient visit,est, low 2006 X-ray exam lower spine 2-3 views 2006 Office/outpatient visit,est, low 2005 Postop followup visit X-ray exam lower spine 2-3 views 2005 Lumbar spine fusion, posterolateral Spine fusion, each add'lvertebra 2005 Low back disk surgery/decompress 2005 Added spine disk surgery/decompress Insert spine seg fix, post, 3-6 seg Autograft, spine surgery, local 006 Advance Directives Directive Yes / No Effective Date File Name No Information Encounters Encounter Description Practice Location Reason(s) For Visit Diagnoses Date Provider Providers Copied on Encounter Office/Outpa tient Visit,Est, Mod [facility], [address] [facility], [place], [place], [id number], tel:[phone] [facility] [place] [facility] in [facility] spine Sep-0 1- 2 Panvica Sebastián. [facility], [address] [place] [address], [address], [id number] , [place]. tel:[phone] Referring Provider: [facility], [facility] [address] [facility], [place], [address]. tel:[phone] Office/Outpa tient Visit,Est, Mod [facility], [address] [facility], [place], [place], [id number], [place] tel:[phone] [facility] [place] [facility] in thoracic spine 1 Panvica Sebastián. [facility], [address] [place] [address], [address], [place], [place], [id number] , [place]. tel:[phone] Referring Provider: [facility] Woodson, [facility] [address] [facility], [place], [address]. tel:[phone] Office/Outpa tient Visit,Est, Mod [facility], [address] [place] [address], [id number], [place] tel:[phone] [facility] [place] [facility] in thoracic spine Nov-0 0 Panvica Sebastián. [facility], [address] [place] [address], [address], [place], [place], [id number] , [place]. tel:[phone] Referring Provider: King Woodson, [address], [place], [address]. tel:[phone] Office/Outpa tient Visit,Est, Mod [facility], [address] [place] [address], [id number], [place] tel:[phone] [facility] Encounter for follow-up examination after completed treatment for conditions other than malignant neoplasm 9 Panvica Sebastián. [facility], [address] [place] [address], [address], [place], [place], [id number] , [place]. [phone] Referring Provider: King Woodson, [facility] [address], [place], [address]. tel:[phone] Office/Outpa tient Visit,Est, Mod [facility], [address] [place] [address], [id number], [place] tel:[phone] [facility] Encounter for follow-up examination after completed treatment for conditions other than malignant neoplasm 9 Panvica Sebastián. [facility], [address] [place] [address], [address], [place], [place], [id number] , [place]. [phone] Referring Provider: King Woodson, [address], [place], [address]. tel:[phone] Office/Outpa tient Visit,Est, Mod [facility], [address], [place], [place], [id number], [place] tel:[phone] [facility] Encounter for follow-up examination after completed treatment for conditions other than malignant neoplasm 9 Panvica Sebastián. [facility], [address] [place] [address], [address], [place], [place], [id number] , . tel:[phone] Referring Provider: King Woodson, [facility] [address], [place], [address]. tel:[phone] [facility], [address] [place] [address], [id number], [place] tel:[phone] [facility] [place] Arthrodesis status 9 Lyons Armen. [facility], [address] [place] [address], [id number] , . [phone] Referring Provider: King Woodson, [facility] [address] [facility], [place], [address]. [phone] [facility], [address] [place] [address], [id number], [place] tel:[phone] [facility] No Information 8 Lyons Armen. [facility], [address] [place] [address], [place], [place], [id number] , [place]. tel:[phone] Referring Provider: King Woodsno, [facility] [facility], [place], [address]. tel:[phone] Office/Outpa tient Visit,Est, Mod [facility], [address] [place] [address], [id number], [place] tel:[phone] [facility] [place] Spinal stenosis, lumbar region 7 David Palafox. [address] [place] [address], [place], [place], [id number] , [place]. tel:[phone] Referring Provider: King Woodson [facility] [address] [facility], [place], [address]. tel:[phone] [facility], [address] [place] [address], [id number], [place] tel:[phone] [facility] [place] Spinal stenosis, lumbar regionOther intervertebra l disc displacement, lumbar region 6 Mehbod Amir. [facility], [address] [place] [address], [id number] , [place]. [phone] Referring Provider: King Woodson [facility] [address] [facility], [place], [address]. tel:[phone] [facility], [address], [place], [place], [id number], [place] [phone] [facility] No Information 6 Mehbod Amir. [facility], [address] [place] [address] [address], [place], [place], [address] , [place]. [phone] Referring Provider: King Woodson, [facility] [address] , [place], [address]. tel:[phone] Office/Outpa tient Visit,New, Mod [facility], [address], [place], [place], [id number], [place] [phone] [facility] [place] Spinal stenosis, lumbar regionOther intervertebra l disc displacement, lumbar region 6 Mehbod Amir. [facility], [address], [place], [place], [id number] , [place]. tel:[phone] Referring Provider: King Woodson, [facility] [address], [place], [address]. tel:[phone] Office/Outpa tient Visit,Est, Mod Z [facility], [address] [place] [address], [place], [address], [place] tel:[phone] [facility] [place] No Information 3 Ha Fortune. [facility], [address] [facility], [place], [address], [place]. [phone] Referring Provider: Jalil Mart, [facility] [address] [facility], [place], [address]. tel:[phone] Z [facility], [address] [place], [place] [address], [place], [address], [place] [phone] [facility] No Information 3 David Palafox. [address] [facility] [address], [place], [place], [id number] , [place]. [phone] Office/Outpa tient Visit,Est, Low Z [facility], [address], [place], [address], [place] tel:[phone] [employer] [facility] No Information 2 Mehbod Amir. [facility], [address] [place] [address] [address], [place], [place], [id number] , [place]. tel:[phone] Referring Provider: Jalil Mart, [facility] [address] [facility], [place], [address]. tel:[phone] Z [facility], [address] [place] [address] 600, [place], [address], [place] tel:[phone] [facility] 0 2 Eckroth Javy. [address] [place] [address] 600, [place], [address] , [place]. tel: [phone] Office/Outpa tient Visit,Est, Mod Z [facility], [address] [place] [address] 600, [place], [address], [place] tel:[phone] [facility] [employer] No Information 2 Mehbod Amir. [facility], [address] [place] [address] 600, [place], [place], [id number] , [place]. tel: [phone] Referring Provider: Jalil Mart, [facility] [address] [facility], [place], [address]. [phone] Office/Outpa tient Visit,Est, Mod Z [facility], [address] [place], [place] [address], [place], [address], [place] tel:[phone] [facility] No Information 2 Mehbod Amir. [facility], [address] [place] [address] [address], [place], [place], [address] , [place]. tel:[phone] Referring Provider: Jalil Mart, [facility] [address] [facility], [place], [address]. tel:[phone] Office/outpa tient visit,est, low Z [facility], [address] [place], [place] [address], [place], [address], [place] [phone] [facility] No Information 1 Mehbod Amir. [facility], [address], [place], [id number] , . [phone] Referring Provider: Jalil Mart, [facility] [address] [facility], [place], [address]. [phone] Z [facility], [address] [place] [address], [facility], tel:[phone] [facility] [employer] No Information 1 Mehbod Amir. [facility], [address] [place] [address] [address], [place], [id number] , [place]. [phone] Referring Provider: Jalil aMrt, [facility] [address] [place] [address], [address]. [phone] [facility], [address], [address], [place] tel:[phone] [facility] [employer] No Information 1 Mehbod Amir. [facility], [address], [id number] , [place]. [phone] Referring Provider: Jalil Mart, [facility] [address] [place] [address], [address]. [phone] Z [facility], [address] [place] [address], [address], [place] tel:[phone] [facility] No Information 1 Mehbod Amir. [facility], [address], [place], [id number] , [place]. [phone] Referring Provider: Jalil Mart, [facility] [address] [place], [address]. tel:[phone] Office/outpa tient visit,est, low Z [facility], [address], [place], [address], [place] [phone] [facility] No Information Dec-0 9-201 1 Mehbod Amir. [facility], [address] [facility], [place], [place], [address] , [place]. tel:[phone] Referring Provider: Jalil Mart, [facility] [address] [facility], [place], [address]. tel:[phone] Office/outpa tient visit,est, low Z [facility], [address] [facility], [place], [address], [place] tel:[phone] [facility] No Information 4-201 1 Mehbod Amir. [facility], [address], [place], [place], [address] , [place]. tel:[phone] Referring Provider: Jalil Mart, [facility] [address] [place], [address]. tel:[phone] Office/outpa tient visit,est, low Z [facility], [address] [place], [place] [address], [place], [address], [place] tel:[phone] [facility] No Information 0 1-201 0 Mehbod Amir. [facility], [address], [place], [place], [address] , [place]. tel:[phone] Referring Provider: Jalil Mart, [facility] [address] [place], [address]. tel:[phone] Office/outpa tient visit,est, low Z [facility], [address], [place], [address], [place] [phone] [facility] No Information Jul-0 5-200 9 Mehbod Amir. [facility], [address] [place] [address] [address], [place], [place], [address] , [place]. [phone] Referring Provider: Jalil Mart, [facility] [address] [facility], [place], [address]. tel:[phone] Office/outpa tient visit,est, low Z [facility], [address] [place], [place] [address], [place], [address], [place] tel:[phone] [facility] No Information Sukh-0 1-200 9 Mehbod Amir. [facility], [address], [place], [place], [address] , [place]. tel:[phone] Referring Provider: Jalil Mart, [facility] [address] [facility], [place], [address]. tel:[phone] Office/outpa tient visit,est, low Z [facility], [address] [place], [place] [address], [place], [address], [place] tel:[phone] [facility] No Information Dec-3 0-200 9 Mehbod Amir. [facility], [address], [place], [place], [address] , [place]. tel:[phone] Referring Provider: Jalil Mart, [facility] [address] [facility], [place], [address]. tel:[phone] Office/outpa tient visit,est, mod Z [facility], [address] [place], [place] [address]ite [facility], [place], [address], [place] tel:[phone] [facility] No Information 2-200 9 Mehbod Amir. [facility], [address] [place] [address] [address], [place], [place], [address] , [place]. tel:[phone] Referring Provider: Jalil Mart, [facility] [address] [facility], [place], [address]. tel:[phone] Z [facility], [address] [place], [place] [address]ite [facility], [place], [address], [place] tel:[phone] [facility] No Information 5-200 8 Mehbod Amir. [facility], [address], [place], [place], [address] , [place]. [phone] Referring Provider: Jalil Mart, [facility] [address] [place] [address], [place], [address]. [phone] Z [facility], [address], [place], [address], [place] tel:[phone] [facility] No Information 0 1-200 8 Mehbod Amir. [facility], [address], [place], [place], [address] , [place]. tel:[phone] Referring Provider: Jalil Mart, [facility] [address] [place] [address], [place], [address]. tel:[phone] [facility]pa [facility], low Z [facility], [address] [place], [place] [address], [place], [address], [place] tel:[phone] [facility] No Information 3-200 8 Mehbod Amir. [facility], [address] [place] [address] [address], [place], [place], [address] , [place]. [phone] Referring Provider: Jalil Mart, [facility] [address] [place] [address], [address]. tel:[phone] Z [facility], [address] [place], [place] [address]ite [facility], [place], [address], [place] tel:[phone] [facility] No Information 0 6-200 8 Mehbod Amir. [facility], [address] [place] [address] [address], [place], [place], [address] , [place]. [phone] Referring Provider: Jalil Mart, [facility] [address] [place] [address], [place], [address]. tel:[phone] Z [facility], [address] [place], [place] [address]ite [facility], [place], [address], [place] tel:[phone] [facility] No Information Sep-1 5-200 8 Mehbod Amir. [facility], [address] [place] [address] [address], [place], [place], [address] , [place]. tel:[phone] Referring Provider: Jalil Mart, [facility] [address] [facility], [place], [address]. tel:[phone] Z [facility], [address] [place], [place] [address], [place], [address], [place] tel:[phone] [facility] No Information Sep-1 2-200 8 Mehbod Amir. [facility], [address] [place] [address] [address], [place], [place], [address] , [place]. tel:[phone] Referring Provider: Jalil Mart, [facility] [address] [place] [address], [place], [address]. tel:[phone] Office/outpa tient visit,est, low Z [facility], [address] [place], [place] [address], [place], [address], [place] tel:[phone] [facility] No Information Sukh-2 3-200 8 Mehbod Amir. [facility], [address] [place] [address] [address], [place], [place], [address] , [place]. tel:[phone] Referring Provider: Jalil Mart, [facility] [address] [facility], [place], [address]. tel:[phone] Office/outpa tient visit,est, low Z [facility], [address], [place], [address], [place] tel:[phone] [facility] No Information Apr-1 0-200 8 Mehbod Amir. [facility], [address] [place] [address] [address], [place], [place], [address] , [place]. [phone] Referring Provider: Jalil Mart, [facility] [address] [facility], [place], [address]. tel:[phone] Office/outpa tient visit,est, low Z [facility], [address] [place] [address] 600, [place], [address], [place] tel:[phone] [facility] [place] No Information 200 8 Mehbod Amir. [facility], [address] [facility], [place], [place], [address] , [place]. tel: [phone] Referring Provider: Jalil Mart, [facility] [address] [facility], [place], [address]. tel:[phone] Office/outpa tient visit,est, low Z [facility], [address], [place], [address], [place] tel:[phone] [facility] [place] No Information 200 7 Mehbod Amir. [facility], [address], [place], [place], [address] , [place]. tel: [phone] Referring Provider: Jalil Mart, [facility] [address] [place] [address], [address]. [phone] Office/outpa tient visit,est, low Z [facility], [address], [place], [address], [place] tel:[phone] [facility] No Information 200 7 Mehbod Amir. [facility], [address] [place] [address] [address], [place], [place], [id number] , [place]. tel: [phone] Referring Provider: Jalil Mart, [facility] [address] [place], [address]. [phone] Office/outpa tient visit,est, low Z [facility], [address], [place], [address], [place] tel:[phone] [facility] [place] No Information 8-200 7 Mehbod Amir. [facility] [place], [address] [place] [address] [address], [place], [place], [id number] , [place]. tel:[phone] Referring Provider: Jalil Mart, [facility] [address] [facility], [place], [address]. tel:[phone] Office/outpa tient visit,est, low Z [facility] [place], [address] [place] [address], [address], [place] tel:[phone] [facility] [place] No Information 200 6 Mehbod Amir. [facility] [place], [address] [place] [address] [address], [place], [id number] , [place]. tel:[phone] Referring Provider: Jalil Mart, [facility] [address] [facility], [place], [address]. tel:[phone] [facility] [place], [address], [facility], [place] tel:[phone] [facility] [place] No Information 6 Mehbod Amir. [facility], [address] [place] [address] [address], [place], [id number] , [place]. tel:[phone] Referring Provider: Jalil Mart, [facility] [address] [facility], [place], [address]. tel:[phone] [facility] [place], [address] [place] [address], [address], [place] tel:[phone] [facility] No Information 6 Mehbod Amir. [facility] [place], [address] [place] [address] [address], [place], [id number] , [place]. tel:[phone] Referring Provider: Jalil Mart, [facility] [address] [place], [address]. tel:[phone] Family History Family Member Type Diagnosis Age At Onset No Information Payers Payer name Insurance type Covered alliance party ID Authoryash barroso(s) [employer] [facility] 2021 CI [id number] Social History Type Description Quantity Date Captured Comments Alcohol Use Details Unknown Caffeine Use Details Unknown Tobacco Use Status Ex-cigarette smoker 022 Smoking Status Former smoker Smoking Tobacco Use Details Cigarette: Age Stopped: 56 Cigarette: No Details Available Sex Male Vital Signs Date / Time: Height Weight BMI Pulse Rate Blood Pressure Temperature Respiratory Rate Body Surface Area Head Circumference Head Circ. Percentile Wt./[place]. Percentile BMI percentile Pulse Ox Inhaled Ox 9:08 AM 67.00 in 85.275 kg (188.00 lbs) 29.4 4 kg/m eter (2) Chief Complaint And Reason For Visit No Information Reason For Referral Reason For Referral No Information Plan Of Treatment Date Type Action Status Future Order: Radiology Order PA /Lateral Full Spine (PALatFS), Ordered on: Ordered History Of Present Illness Encounter Date Complaint History Of Prese nt Illness No Information Functional Status Date Functional Assessmen t No Information Instructions Date Instruction Additional Infor mation Blood Pressure Management Relate d to Unspecified Essential Hypertension Weight management: I nstructed to return to General Practitioner timeframe: 1 Month. Related to Overweight Weight Management Education Rela vanesa to Overweight Instructed to return to General Practitioner timeframe: 1 Month. Related to Unspecified Essential Hypertension Weight Management Education Rela vanesa to Overweight Instructed to return to General Practitioner timeframe: 1 Month. Related to Unspecified Essential Hypertension Blood Pressure Management Relate d to Unspecified Essential Hypertension Weight management: I nstructed to return to General Practitioner timeframe: 1 Month. Related to Overweight Assessments Type Assessment Date assessment Pain in thoracic spine 22 Patient Care Teams Name Effective Dates (start - stop) Status Members No Information
--- OUTSIDE RECORDS SUMMARY | 2024-12-21 10:02 | XMS_ITS | Clinical Summary ---
Author Organization [employer] [facility] Address [address] [place] [id number] Care Team Providers Care Cloth Covered Helmet Puller Name Role Phone Robbie Maldonado MD Primary Care Provider Allergies No known active allergies Medications b complex vitamins (VITAMINS B COMPLEX) capsule Take 1 capsule by mouth once daily. 0 12/29/19 11 Active acetaminophen (TYLENOL) 325 mg tabletIndicati ons:Status post thoracic spinal fusion Take 2 tablets by mouth every 4 hours while awake. Max acetaminophen dose: 4000mg in 24 hrs. 100 tablet 09/26/20 18 Active sennosides-doc usate, 8.6-50 mg, (SENOKOT S) 8.6-50 mg tabletIndicati ons:Status post thoracic spinal fusion Take 2 tablets by mouth 2 times daily. Hold for loose stools 100 tablet 09/26/20 18 Active naproxen (ALEVE) 220 mg tablet Take 1 tablet by mouth 2 times daily with meals. 100 tablet 04/03/20 19 Active Ntnjd-1-JXS-EP A-Fish Oil 1,000 mg (120 mg-180 mg) cap Take 1 capsule by mouth. 0 04/03/20 19 Active turmeric 400 mg capIndications :Status post thoracic spinal fusion Take by mouth 2 times daily. 0 06/05/20 20 Active hospital bedIndications :Thoracic disc disease with myelopathy,His tory of thoracic spinal fusion,Chronic midline thoracic back pain Hospital bed with mattress and 1/2 rails. Semi-electric bed. Length of need 99 months. Bed medical assistant ob gyn:nodxM51 .04,A98.1,M54.6 1 unit 09/09/20 20 Active traMADoL (ULTRAM) 50 mg tablet Take 50 mg by mouth once daily if needed for Pain. Active lisinopriL (PRINIVIL; ZESTRIL) 20 mg tabletIndicati ons:Benign essential HTN TAKE 1 TABLET BY MOUTH EVERY DAY 90 Tablet 1 09/24/20 24 Active amLODIPine (NORVASC) 10 mg tabletIndicati ons:HTN (hypertension) Take 1 Tablet (10 mg) by mouth once daily. 90 Tablet 10/12/19 25 Active metoprolol succinate (TOPROL XL) 25 mg Sustained-Rele ase tabletIndicati ons:Benign essential HTN TAKE 1 TABLET BY MOUTH EVERY DAY 90 Tablet 12/08/19 25 Active LORazepam 1 mg tabletIndicati ons:Muscle spasm TAKE 1/2 TO 1 TABLET BY MOUTH AT BEDTIME IF NEEDED 30 Tablet 12/08/19 25 Active gabapentin (NEURONTIN) 300 mg capsuleIndicat ions:Muscle spasms of both lower extremities TAKE 3 TO 4 CAPSULES BY MOUTH AT BEDTIME. 360 Capsule 12/08/19 25 Active mirtazapine (REMERON) 7.5 mg tabletIndicati ons:Primary insomnia TAKE 1 TABLET BY MOUTH AT BEDTIME. 90 Tablet 12/08/19 25 Active gabapentin (NEURONTIN) 300 mg capsuleIndicat ions:Muscle spasms of both lower extremities 3 to 4 capsules oral at bedtime. 360 Capsule 3 06/20/20 23 2024 Discontinued LORazepam (ATIVAN) 1 mg tabletIndicati ons:Muscle spasm TAKE 1/2 TO ONE TABLET AT BEDTIME IF NEEDED 30 Tablet 06/05/20 24 2024 Discontinued metoprolol succinate (TOPROL XL) 25 mg Sustained-Rele ase tabletIndicati ons:Benign essential HTN Take 1 Tablet (25 mg) by mouth once daily. 90 Tablet 1 06/11/20 24 2024 Discontinued mirtazapine (REMERON) 7.5 mg tabletIndicati ons:Primary insomnia Take 1 Tablet (7.5 mg) by mouth at bedtime. 90 Tablet 1 06/11/20 24 2024 Discontinued Active Problems Problem Noted Date Diagnosed Date Chronic insomnia 07/18/2024 Bilateral lower extremity edema 08/30/2023 Right foot drop 06/17/2022 Overview (06/17/2022): AFO Insomnia 06/17/2022 Overview (06/17/2022): Near nightly lorazepam per previous provider. Risks reviewed 2020. Pain in both hands 06/17/2022 Abnormality of gait due to l umbar stenosis s/p AP decompression and fusion (2010) 01/11/2011 ACP (advance care planning) 01/08/2011 Overview (01/08/2011): Patient has identified Health Care Agent(s): Yes Add Health Care Agents: Yes Health Care Agent(s): Primary Health Care Agent: Willie Regulo Relationship: son Secondary Health Care Agent: Relationship: Phone: Conservator: Relationship: Phone: Guardian: Relationship: Phone: Patient has Advance Care Plan Documents (Health Care Directive, POLST): Yes Advance Care Plan Documents: Health Care Directive-Five Wishes Patient has identified Specific Treatment Preferences: No Specific limits to treatment preferences NOT identified: ASSUME FULL TREATMENT. Backache, unspecified 01/29/2008 Overview (07/02/2016): 07/09/2008 L SPINE MRI : At L4-5, signal abnormality, enhancement and irregularity of endplates is consistent with an inflammatory discitis and possible adjacent osteomyelitis Scheduled for posterior lumbar fusion on 07/07/[address] Britt Essential hypertension 11/14/2006 Resolved Problems Problem Noted Date Diagnosed Date Resolved Date Pressure injury of right ankle, stage 2 06/17/2022 06/17/2022 Pressure injury of skin of right ankle 03/11/2022 06/20/2023 Thoracic disc herniation 09/22/2018 Lumbar stenosis 01/11/2011 06/17/2022 Overview (07/02/2016): Posterior lumbar fusion on 07/07/[address] Britt Depressive disorder 07/11/2008 08/14/20 16 Unspecified Acute Conjunctivitis 05/30/2008 07/02/2016 Alcohol abuse, unspecified 11/14/2006 0 04/07/2011 Overview (11/14/2006): tx in 1978 Personal history of tobacco use, [facility] 11/14/2006 07/02/2016 Encounters Date Type Department Care Team Description 12/21/2024 Telephone [facility] [address] [place] [address] Robbie Maldonado MD Appointment Request (approval request for 12/21 @ 1:40 pm ) 12/21/2024 Nurse Triage [facility] [address] [place] [address] Robbie Maldonado MD Head Injury 12/21/2024 Nurse Triage [address] [address] Robbie Maldonado MD Error-please disregard 12/07/[address] [address] Robbie Maldonado MD Refill Request (Mirtazapine) 12/07/2024 Refill [facility] [address] [place] [address] Robbie Maldonado MD Refill Request (Lorazepam) 12/07/2024 Refill [facility] [address] [place] [address] Robbie Maldonado MD Refill Request (Metoprolol Succinate, Gabapentin) 10/08/[address] [address] Robbie Maldonado MD Refill Request (Amlodipine) from Last 3 Months Immunizations Immunization Administration Dates Next Due AMB INFLUENZA IIV3 (AGE 65+ YRS) PF (Flu Clinic Only) 08/23/2019,07/22/2018 COVID-19 vaccine (Luminate-Bio NTech 30mcg/0.3mL) 12YO+ BIVALENT PF, MDV 02/08/2023,06/17/2022 COVID-19 vaccine (Pfizer-Bio NTech 30mcg/0.3mL) 12YO+ MATTHEW-SUCROSE PF, MDV 01/13/2022 COVID-19 vaccine ([email or web address] NTEpiphany 30mcg/0.3mL) PF, MDV 07/02/2021,12/09/2020,11/18/2020 Hepatitis B (Adult) 02/17/1994, 3,08/19/1993,1992 Influenza, High-dose Inactivated 06/30/2016,07/03 Influenza, IIV3 (Age >=3 years) 08/20/20 13,08/11/2012,08/17/2010,2007 Influenza, Inactivated AIIV4 (Age 65+ Years) Preserv Free 06/20/2023,06/17/2022,07/02/2021,2019 Influenza, Inactivated IIV3 (Age 65+ Years) Preserv Free 07/27/2018,08/15/2017 Pneumococcal Conj 20-valent (Prevnar 20) 02/08/2023 Pneumococcal Poly,23-Valent (Pneumovax) 05/31/2008 Pneumococcal conj 13-Valent (Prevnar 13) 06/30/2016 Td (Age >=7 Years) 11/10/2017 Tdap 04/24/2007 Zoster (Shingrix-RZV, recombinant) 11/04,10/14/2018,06/14/2018,2017 Family History Medical History Relation Name Comments Other Brother 5 Good Health Brother 6 Hypertension Father Diabetes Mother Heart Disease Mother chf Good Health Son 2 Relation Name Status Comments Brother 1 Alive Brother 2 Alive Brother 3 mva Brother 4 Brother 5 Brother 6 Father (Age 87) Mother (Age 85) Son 1 Alive Son 2 Social History Tobacco Use Types Packs/Day Years Used Date Smoking Tobacco: Former Cigarettes 1 30 0 10/03/1952 - 10/03/1982 Smokeless Tobacco: Never Tobacco Cessation:Counseling Given: No Alcohol Use Standard Drinks/Week Comments No 0 (1 standard drink = 0.6 oz pur e alcohol) in treatment program 1977 PHQ-2 Answer Date Recorded PHQ-2 TOTAL SCORE 1 08/08/2024 Social Connections Answer Date Recorded Do you often feel lonely or isolated from those around you? 0 02/09/2024 Financial Resource Strain Answer Date R ecorded Difficulty of Paying Living Expenses 3 02/09/2024 Difficulty of Paying Living Expenses Not on file 02/09/2024 Food Insecurity Answer Date Recorded Do you worry your food will run out before you are able to buy more? 1 02/09/2024 Transportation Needs Answer Date Record ed Does lack of transportation keep you from medica l appointments? 1 02/09/2024 Does lack of transportation keep you from work, meetings or getting things that you need? 1 02/09/2024 Housing Stability Answer Date Recorded What is your housing situation today? 1 02/09/2024 Utilities Answer Date Recorded Do you have trouble paying f or utilities (for example, heat, electricity, water, phone)? 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 Not on file Not on file Obstetrics History Last Filed Vital Signs Vital Sign Reading Time Taken Comments Blood Pressure 135/68 02/09/2024 11:36 AM CDT Pulse 98 02/09/2024 11:25 AM CDT Temperature 36.4 C (97.6 F) 04/14/2023 12:29 PM CDT Respiratory Rate 18 04/14/2023 12:29 PM CDT Oxygen Saturation 91% 02/09/2024 11:25 AM CDT Inhaled Oxygen Concentration - - Weight 93.6 kg (206 lb 6.4 oz) 11/28/2023 10:53 AM AIR HAMMER STRIPPER Height 168.4 cm (5' 6.3) 06/20/2023 2:30 PM CDT Body Mass Index 33.01 06/20/2023 2:30 PM CDT Plan of Treatment Health Maintenance Due Date Last Done Comments RSV vaccine for adults or (1 - 1-dose 75+ series) 2016 Influenza Vaccine (#1) 2024 , 06/17/2022, 07/02/2021, Additional history exists BMI (ht and wt on same day) for age 18+ 06/20/2024 06/20/2023, 06/17/2022, 02/11/2022, Additional history exists Medicare Wellness for age 65+ 06/20/2024, 06/17/2022, 12/25/2020, Additional history exists COVID-19 vaccine series (2023- season) 2025 07/17/2024, 08/05/2023, 02/08/2023, Additional history exists Depression screening for age 12+ 08/09/2025 08/09/2024, 08/08/2024, 06/26/2024, Additional history exists Tetanus booster 11/10/2027 11/10/2017, 04/24/2007 Tdap Completed 04/24/2007 Zoster (shingles) series for age 50+ Completed 11/04/2018, 10/14/2018, 06/14/2018, Additional history exists Pneumococcal series for age 50+ Completed 02/08/2023, 06/30/2016, 05/31/2008 Medical Devices Implanted Type Area Investigation Lieutenant Device Identifier Shelf Expiration Date Model / Serial / Lot Chips Canclls 1.0-9.5mm 30cc Aseptic Freeze Dried Strl - [id number] Implanted:Qty: 1 on 03/18/2006 at [facility] Explanted:at [facility] (Quantity not on file) Bone Implants Spine Allosource 01/08/2011 [id number]# / [id number] / [id number] Chips Canclls 1.0-9.5mm 30cc Aseptic Freeze Dried Strl - [id number] Implanted:Qty: 1 on 03/18/2006 at [facility] Explanted:at [facility] (Quantity not on file) Bone Implants Spine Allosource 01/22/2011 [id number]# / [id number] / [id number] Screw Polyaxial 6.5x45mm - [id number] Implanted:Qty: 4 on 03/18/2006 at [facility] [id number]# / / Screw Polyaxial 6.5x50mm - [id number] Implanted:Qty: 2 on 03/18/2006 at [facility] Spine HOWMEDICA [id number]# / / Erik Dixon [id number] - [id number] Implanted:Qty: 6 on 03/18/2006 at [facility] Spine HOWMEDICA 0404-0502 # / / Maria Dolores Dixon Rad 80mm 127mm Radius - [id number] Implanted:Qty: 2 on 03/18/2006 at [facility] Spine [employer]MEDICA [id number]# / / Screw Polyaxial 6.5x45mm - [id number] Implanted:Qty: 3 on 05/28/2008 at [facility] Spine [employer]MEDICA [id number]# / / Screw Polyaxial 7.5x45mm - [id number] Implanted:Qty: 1 on 05/28/2008 at [facility] [id number]# / / Avs Pl 10x25 Implanted:Qty: 1 on 05/28/2008 at [facility] Spine [id number] / / Description:AVS PL 10X25 Avs Pl Peek Spacer [[id number]][ Implanted:Qty: 1 on 05/28/2008 at [facility] Spine [employer] [id number] / / Description:AVS PL PEEK SPAC ER Maria Dolores Dixon [id number] - [id number] Implanted:Qty: 1 on 05/28/2008 at [facility] Spine [employer]ICA 1719-3515 # / / Erik Dixon [id number] - [id number] Implanted:Qty: 9 on 05/28/2008 at [facility] 8088-5002 # / / [id number] 117abone Canclls Crushed 60cc [[id number]] Implanted:Qty: 1 on 05/28/2008 at [facility] Explanted:at [facility] (Quantity not on file) Spine Musculoskeletal Transplant 08/08/2008 [id number]# / [id number] / Kit Infuse - [id number] Implanted:Qty: 1 on 05/28/2008 at [facility] Spine SOFAMOR DANEK [id number]# / / [id number] Screw Polyaxial 6.5x40mm - [id number] Implanted:Qty: 1 on 05/28/2008 at [facility] Spine [facility] [id number]# / / Screw Polyaxial 6.5x45mm - [id number] Implanted:Qty: 1 on 07/10/2008 at [facility]ine [facility] 20636805# / / Screw Polyaxial 6.5x50mm - [id number] Implanted:Qty: 3 on 07/10/2008 at [facility] Spine [employer]ICA [id number]# / / Maria Dolores Dixon Rad 90mm 127mm Radius - [id number] Implanted:Qty: 2 on 07/10/2008 at [facility] Spine [employer] [id number]# / / Erik Dixon [id number] - [id number] Implanted:Qty: 10 on 07/10/2008 at [facility] Spine [employer] 1243-1302 # / / Offset 6mm Neutral Implanted:Qty: 1 on 07/10/2008 at [facility] Spine [id number] / / Description:OFFSET 6MM NEUTR AL Dixon Polyaxial Illiac Screws [[id number]][ Implanted:Qty: 1 on 07/10/2008 at [facility] Explanted:at [facility] (Quantity not on file) Spine [employer] [id number] / / Description:DIXON POLYAXIAL IL LIAC SCREW Dixon Straight Maria Dolores Implanted:Qty: 2 on 07/10/2008 at [facility] Spine [id number] / / Description:DIXON STRAIGHT MARIA DOLORES [id number] Canc 90cc Crushed Freeze Dried [[id number]][[id number]] Implanted:Qty: 1 on 01/06/2011 at [facility] Explanted:at [facility] (Quantity not on file) Spine Musculoskeletal Transplant 09/22/2013 660360# / [id number] / Screw Polyaxial 6.5x45mm - [id number] Implanted:Qty: 2 on 01/06/2011 at [facility] N/A: Lumbar Vertebrae [employer] [id number]# / / Erik Dixon [id number] - [id number] Implanted:Qty: 13 on 01/06/2011 at [facility] N/A: Lumbar Vertebrae [employer] 6388-3311 # / / Cnnctr Maria Dolores To Maria Dolores 0 Deg Dixon Lp Sm - [id number] Implanted:Qty: 2 on 01/06/2011 at [facility] N/A: Lumbar Vertebrae [employer] [id number]# / / Maria Dolores Dixon [id number] - [id number] Implanted:Qty: 1 on 01/06/2011 at [facility] N/A: Lumbar Vertebrae [employer] 0791-4121 # / / Screw Set Break Off Ti - [id number] Implanted:Qty: 1 on 01/06/2011 at [facility] N/A: Lumbar Vertebrae SOF[employer]OR [employer]ANEK [id number]# / / Screw Multi Axial - [id number] Implanted:Qty: 1 on 01/06/2011 at [facility] N/A: Lumbar Vertebrae [employer] [id number]# / / Kit Infuse Md - [id number] Implanted:Qty: 1 on 01/06/2011 at [facility] Spine [employer] 07/03/2013 [id number]# / / [id number] C Perimeter Lg 18mm 8 Deg Add-On - [id number] Implanted:Qty: 1 on 01/06/2011 at [facility] Spine [employer] 03/02/2016 [id number]# / / [id number] Perimeter Lg 16mm 8 Deg Add-On - [id number] Implanted:Qty: 1 on 01/06/2011 at [facility] Spine [employer] 06/17/2018 [id number]# / / [id number] 16bone 30cc Allosource Crushed Canclls [[id number]] Implanted:Qty: 1 on 07/07/2016 by Sidney Britt MD at [facility] Explanted:at [facility] (Quantity not on file) N/A: Spine Allosource 03/28/2020 [id number]# / [id number] / Screw Lmbr Post 6.5x40mm Xia3 Va - [id number] Implanted:Qty: 2 on 07/07/2016 by Sidney Britt MD at [facility] N/A: Spine [employer]yler Spine [id number] # / / Screw Lmbr Post 6.5x45mm Xia3 Va - [id number] Implanted:Qty: 2 on 07/07/2016 by Sidney Britt MD at [facility] N/A: Spine [place] Spine [id number] # / / Cnnctr Lmbr Lg 0deg Dixon Ii - [id number] Implanted:Qty: 1 on 07/07/2016 by Sidney Britt MD at [facility] N/A: Spine [employer] Spine [id number]# / / Set Screw Lmbr Xia3 - [id number] Implanted:Qty: 12 on 07/07/2016 by Sidney Britt MD at [facility] N/A: Spine [employer] Spine [id number]# / / Cnnctr Maria Dolores To Maria Dolores 0 Deg Dixon Lp Sm - [id number] Implanted:Qty: 2 on 07/07/2016 by Sidney Britt MD at [facility] N/A: Spine [place] Spine [id number]# / / Maria Dolores Lmbr [id number] Xia3 Cvd Titnm - [id number] Implanted:Qty: 2 on 07/07/2016 by Sidney Britt MD at [facility] N/A: Spine [employer] Spine [id number]# / / [id number] 4bone Matrix 6cc Tyler Dbf Putty Dbm Implanted:Qty: 1 on 09/23/2018 by Armen Lyons MD at [facility] Explanted:at [facility] (Quantity not on file) Spine Medtronic Spine/Ortho 07/10/2020 [id number]# / [id number] / [id number] 4bone 1-4mm 30cc Medtronic Chips Canclls Freeze Dried Implanted:Qty: 1 on 09/23/2018 by Armen Lyons MD at [facility] Explanted:at [facility] (Quantity not on file) Spine Medtronic Spine/Ortho 02/21/2023 [id number]# / [id number] / Spacer Lmbr 6x22mm Capstone Tlif Peek - [id number] Implanted:Qty: 1 on 09/23/2018 by Armen Lyons MD at [facility] Spine Medtronic Spine/Ortho 08/28/2026 [id number]# / / [id number] Set Screw Lmbr Ant 5.5mm Solera Break Off - [id number] Implanted:Qty: 2 on 09/23/2018 by Armen Lyons MD at [facility] Spine Medtronic Spine/Ortho [id number]# / / Screw Lmbr Post 6.5x45mm Solera 5.5/6 Va Cocr - [id number] Implanted:Qty: 2 on 09/23/2018 by Armen Lyons MD at [facility] Spine Medtronic Spine/Ortho [id number]# / / Maria Dolores Lmbr 60x5.5mm Solera 5.5/6cvd Titnm - [id number] Implanted:Qty: 1 on 09/23/2018 by Armen Lyons MD at [facility] Spine Medtronic Spine/Ortho [id number] 0# / / Maria Dolores Lmbr 70x5.5mm Solera 5.5/6cvd Titnm - [id number] Implanted:Qty: 1 on 09/23/2018 by Armen Lyons MD at [facility] Spine Medtronic Spine/Ortho [id number] 0# / / Cnnctr Lmbr 6.35x5.5mm Maria Dolores Connect Variable Titnm Hiren - [id number] Implanted:Qty: 2 on 09/23/2018 by Armen Lyons MD at [facility] Spine Medtronic Spine/Ortho [id number] # / / Set Screw Lmbr Std Maria Dolores Connection Titnm - [id number] Implanted:Qty: 4 on 09/23/2018 by Armen Lyons MD at [facility] Spine Medtronic Spine/Ortho [id number] # / / Insurance [id number] [place] [address] [employer] MEDICARE ADVANTAGE [place] [id number] [place] [id number] Advance Directives Documents on File Type Date Recorded 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 Expl anation Healthcare Directive 01/08/2011 * Full Code (Latest Code Status on File) Date Activated Date Inactivated Comments 09/22/2018 10:26 PM 09/26/2018 2:46 PM * Full Code Date Activated Date Inactivated Comments 07/07/2016 8:22 PM 07/12/2016 12:30 PM * Full Code Date Activated Date Inactivated Comments 07/07/2016 7:59 AM 07/07/2016 8:22 PM * Full Code Date Activated Date Inactivated Comments 01/11/2011 10:48 AM 01/16/2011 2:11 PM * Full Code Date Activated Date Inactivated Comments 01/06/2011 4:53 PM 01/11/2011 10:48 AM Care Teams Cloth Covered Helmet Puller Relationship Specialty Start Date End Date Robbie Maldonado MD [address] [place] [address] PCP - General Family Practice 04/22/21
--- OUTSIDE RECORDS SUMMARY | 2024-12-21 10:02 | XMS_ITS ---
Author Organization [facility] [place] Care Team Providers Care Business Relations Manager Name Role Phone Malinda Bonds Unavailable Unavailable Joel Chin Unavailable Unavailable Allergies and adverse reactions No Known Allergies Care Team Name Role Address Phone Organization Dates Joel Chin [place] [phone], [place] States (Office): [facility] 09/26/2018 - 10/12/2018 Malinda Bonds Attending Physician [place] [phone], [facility] (Office): : [facility] 09/26/2018 - 10/12/2018 Immunizations Immunization Status Vaccine Details Vaccine Code CodeSystem Date Notes Influenza completed Influenza, high-dose, split virus, quadrivalent, injectable, preservative free 197 CVX created date: 07/12/2016 administer ed date: 07/27/2018 Hepatitis B completed hepatitis B vaccine, adult dosage 43 CVX created date: 07/12/2016 administer ed date: 02/17/1994 Hepatitis B completed hepatitis B vaccine, adult dosage 43 CVX created date: 07/12/2016 administer ed date: 08/19/1993 Hepatitis B completed hepatitis B vaccine, adult dosage 43 CVX created date: 07/12/2016 administer ed date: 08/17/1993 TB 2 Step Mantoux Skin Test completed tuberculin skin test; unspecified formulation lotNumber: [id number] expiry: 01/05/2021 Mfg: sanofi pasteur Given 0.1 ml Left Forearm intradermally Step 1 of Multi-step with next step required 98 CVX created date: 09/27/2018 consent date: 09/27/2018 administer ed date: 09/27/2018 TB 2 Step Mantoux Skin Test completed tuberculin skin test; unspecified formulation lotNumber: [id number] expiry: 07/27/2016 Mfg: sanofi pasteur Given 0.1 ml Left Forearm intradermally Step 2 of Multi-step with next step required 98 CVX created date: 07/27/2016 consent date: 07/27/2016 administer ed date: 07/27/2016 discharged 07/28/16 TB 2 Step Mantoux Skin Test completed tuberculin skin test; unspecified formulation lotNumber: [id number] expiry: 02/24/2018 Mfg: sanofi pasteur Given 0.1 ml Right Forearm intradermally Step 1 of Multi-step with next step required 98 CVX created date: 07/13/2016 consent date: 07/13/2016 administer ed date: 07/13/2016 TDAP completed created date: 07/12/2016 administer ed date: 04/24/2007 Shingles Vaccination completed created date: 09/27/2018 administer ed date: 06/14/2018 2 of 2 Shingles Vaccination completed created date: 09/27/2018 administer ed date: 04/18/2018 1 of 2 PPSV23, Pneumovax 23 completed created date: 07/12/2016 administer ed date: 05/31/2008 PCV13, [id number] completed created date: 07/12/2016 administer ed date: 06/30/2016 Mental Status Section Date Assessment Total Score Description 10/12/2018 BIMS 15 cognitively int act CAM 0 No delirium ind icated PHQ-9 00 10/09/2018 CAM 0 No delirium ind icated PHQ-9 05 mild depression Problems Problem # Description Date of onset Resolved Date Code CodeSystem Concern Status 1 CANDIDIASIS OF SKIN AND NAIL 09/26/[address] active 2 DIFFICULTY IN WALKING, NOT ELSEWHERE CLASSIFIED 09/26/[address] active 3 ENCOUNTER FOR OTHER SPECIFIED SURGICAL AFTERCARE 09/26/[address] active 4 SPINAL STENOSIS, LUMBAR REGION WITHOUT NEUROGENIC CLAUDICATION 09/26/[address] active 5 WEAKNESS 09/26/[address] active 6 ANXIETY DISORDER, UNSPECIFIED 07/12/2016 07/28/[address] completed 7 CONSTIPATION, UNSPECIFIED 07/12/[address] active 8 ENCOUNTER FOR OTHER SPECIFIED SURGICAL AFTERCARE 07/12/2016 07/28/[address] completed 9 ESSENTIAL (PRIMARY) HYPERTENSION 07/12/[address] active 10 INSOMNIA, UNSPECIFIED 07/12/[address] active 11 MAJOR DEPRESSIVE DISORDER, SINGLE EPISODE, UNSPECIFIED 07/12/2016 07/28/[address] completed 12 MUSCLE WEAKNESS (GENERALIZED) 07/12/2016 07/28/[address] completed 13 PERSONAL HISTORY OF NICOTINE DEPENDENCE 07/12/[address] active 14 PRESENCE OF LEFT ARTIFICIAL KNEE JOINT 07/12/[address] active 15 PRESENCE OF RIGHT ARTIFICIAL HIP JOINT 07/12/[address] active 16 SPINAL STENOSIS, LUMBAR REGION 07/12/2016 07/03/[address] completed 17 UNSTEADINESS ON FEET 07/12/2016 07/28/[address] completed Reason for Referral No Reasons for Referral Entered Social History Social History Observation Description Start Date End Date Code Code System Current Smoking Status Tobacco smoking consumption unknown 679436346 SNOMED CT Sex Assigned At Male 1940 [address]-[facility] Vital Signs Code Code System Vitals Name Values and Units Timing Information 66711-5 [facility] Pain Level Value=0.0 10/12/2018 84023-1 [facility] Weight Amqye=054.0 Units=Lbs 06/2019 8462-4 [facility] Blood Pressure-Diastolic Value=66 Un its=mmHg 10/11/2018 8480-6 [facility] Blood Pressure-Systolic Value=99 Uni ts=mmHg 10/11/2018 9279-1 [facility] Respiratory Rate Value=16.0 Units=/m in 10/11/2018 8310-5 [facility] Body Temperature Value=97.3 Units= F 10/11/2018 8867-4 [facility] Heart rate Value=97.0 Units=/min 06/2019 14798-7 [facility] O2 % BldC Oximetry Value=95.0 Units= % 10/11/2018 8302-2 [facility] Height Value=68.0 Units=Inches 09/26/2018
[2024-12-21 10:03] VITALS: BP 143/78; PULSE 84; RESP 18; TEMP 36.8; O2SAT 96; BMI 31.2
--- NOTE | 2024-12-21 10:27 | ED_ITS ---
HPI - General Adult General Chief complaint: Fall/Minor Trauma Stated complaint: fell this AM, wants to get checked out Time Seen by Provider: 12/21/24 10:06 History of Present Illness HPI narrative: Patient is a 84-year-old gentleman who stumbled today in his kitchen. He struck his forehead and no is creating some small abrasions. He did not fall completely to the floor but struck his face on his counter. Patient has mobility issues and has had frequent falls in the past. He is not on anticoagulation. He had no loss of consciousness. He has regained his sensorium immediately after the fall and had no seizure activities. He has an abrasion on his forehead and across the bridge of his nose but otherwise uninjured but no epistaxis. He has a GCS of 15. No other issues are noted. Related Data Home Medications ?Medication ?Instructions ?Recorded ?Confirmed gabapentin 300 mg capsule 600 mg PO HS 04/22/22 12/21/24 lorazepam 1 mg tablet 0.5 - 1 mg PO QPM PRN 12/11/22 12/21/24 amlodipine 10 mg tablet 10 mg PO DAILY 02/15/24 12/21/24 metoprolol succinate 25 mg 25 mg PO DAILY 02/15/24 12/21/24 tablet,extended release 24 hr mirtazapine 7.5 mg tablet 7.5 mg PO QPM 02/15/24 12/21/24 Previous Rx's ?Medication ?Instructions ?Recorded lisinopril 20 mg tablet 20 mg PO DAILY #30 tabs 12/15/22 Allergies Allergy/AdvReac Type Severity Reaction Status Date / Time No Known Drug Allergies Allergy Verified 12/21/24 10:09 Review of Systems Status of ROS: Reports: 10 or more systems reviewed and unremarkable except as noted in History and below [facility] Medical History Alcohol abuse ?F10.10 - Alcohol abuse, uncomplicated (ICD-10) Muscle spasms of both lower extremities ?M62.838 - Other muscle spasm (ICD-10) Insomnia ?G47.00 - Insomnia, unspecified (ICD-10) Foot drop, right ?M21.371 - Foot drop, right foot (ICD-10) Depression ?F32.A - Depression, unspecified (ICD-10) Hypertension ?I10 - Essential (primary) hypertension (ICD-10) Lumbar stenosis ?M48.061 - Spinal stenosis, lumbar region without neurogenic claudication (ICD-10) Surgical History (Updated 02/10/24 @ 08:28 by Izabel Arango) History of arthroscopy of left knee (11/06/91) ?Z98.890 - Other specified postprocedural states (ICD-10) 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 No living children, son 2-3 years ago. Niece Aleyda Rajput in [place] or friends Woo and Joanne Webb would be medical decision makers if needed. Full code status. 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 Quit smoking in the 1980s, no ETOH use. Smoking Status: Former smoker What tobacco products do you use: cigarettes Smoking quit date/years: >15 years ago Do you use any of these nicotine containing products: None Second hand tobacco smoke exposure: No How often do you have a drink containing alcohol: never How often do you have six or more drinks on one occasion: Never AUDIT-C Alcohol total score: 0 Non-prescribed substance use: denies use service: No Exam Narrative: Exam Narrative: EXAM GENERAL: Patient appears comfortable and well. Oriented x3. EYES: No scleral icterus. ENT: Tympanic membranes and oropharynx normal. THYROID: no thyroid nodules or thyromegaly. LYMPH: No supraclavicular or cervical lymphadenopathy. SKIN: Abrasion noted across the forehead and bridge of the nose. EXT: No dependent lower extremity pedal edema. HEART: Regular rate and rhythm with no murmurs, rubs, or gallops. LUNGS: Clear to auscultation bilaterally with no crackles or wheezes. ABD: Soft, non tender, non distended. PSYCH: Good eye contact, speech is not pressured. GCS 15. Neck and back exam normal. Const: Vital Signs, click to edit/add: Vital Signs - 24 hr 12/21/24 10:03 Temperature 98.3 F Pulse Rate [Right Pulse Oximeter] 84 Respiratory Rate 18 Blood Pressure [Ri ght Upper Arm] 143/78 H Pulse Oximetry 96 Oxygen Delivery Me thod Room Air Course Course ED Course: Patient seen and examined. He is not on anticoagulation and appears have only minor injuries. We did update his tetanus shot. Treated is minor abrasions. I do not believe he needs further evaluation or treatment this is a mechanical fall non significant mechanism of injury. Would recommend continued current care and close outpatient follow-up. Vital Signs Vital signs: Initial Vital Signs Temperature 98.3 F 12/21/24 10:03 Temperature Source Temporal Artery Scan 12/21/24 10:03 Pulse Rate 84 12/21/24 10:03 Pulse Rhythm Regular 12/21/24 10:03 Respiratory Rate 18 12/21/24 10:03 Blood Pressure 143/78 H 12/21/24 10:03 Blood Pressure Mean 99 12/21/24 10:03 Blood Pressure Position Sitting 12/21/24 10:03 Pulse Oximetry 96 12/21/24 10:03 Oxygen Delivery Method Room Air 12/21/24 10:03 Vital Signs Temperature 98.3 F 12/21/24 10:03 Pulse Rate 84 12/21/24 10:03 Respiratory Rate 18 12/21/24 10:03 Blood Pressure 143/78 H 12/21/24 10:03 Pulse Oximetry 96 12/21/24 10:03 Oxygen Delivery Method Room Air 12/21/24 10:03 Temperature 98.3 F 12/21/24 10:03 Pulse Rate 84 12/21/24 10:03 Respiratory Rate 18 12/21/24 10:03 Blood Pressure 143/78 H 12/21/24 10:03 Pulse Oximetry 96 12/21/24 10:03 Oxygen Delivery Method Room Air 12/21/24 10:03 Medical Decision Making MDM Narrative Medical decision making narrative: As above. Discharge Plan Discharge Clinical Impression: Abrasion Patient Disposition: Home, Self-Care Condition: Stable Instructions: Abrasion (ED) Activity Level: No Restrictions Discharge Diet: Regular Prescriptions: No Action amlodipine 10 mg tablet 10 mg PO DAILY mirtazapine 7.5 mg tablet 7.5 mg PO QPM metoprolol succinate 25 mg tablet extended release 24 hr 25 mg PO DAILY lorazepam 1 mg tablet 0.5 - 1 mg PO QPM PRN lisinopril 20 mg tablet 20 mg PO DAILY Qty: 30 0RF gabapentin 300 mg capsule 600 mg PO HS Rx Instructions: 2-3 caps at HS Follow Up/Referrals: Robbie Maldonado MD [Primary Care Provider] - Stand Alone Forms: [facility] Info Instructions
--- NOTE | 2024-12-21 10:33 | ED.NURSE ---
Pt nose, and forehead cleaned with hibiclens. Antibiotic ointment applied, and covered with bandage. Pt tolerated well.
[2024-12-21] MEDS: TETANUS/DIPHTH/PERTUSSIS 0.5 ML SYRINGE IM (10:41)
--- OUTSIDE RECORDS SUMMARY | 2024-12-21 10:52 | XMS_ITS ---
Author Organization [facility] [place] Care Team Providers Care Manager Floor Name Role Phone Malinda Bonds Unavailable Unavailable Joel Chin Unavailable Unavailable Allergies and adverse reactions No Known Allergies Care Team Name Role Address Phone Organization Dates Joel Chin [place] [phone], [place] States (Office): [facility] 09/26/2018 - 10/12/2018 Malinda Bonds Attending Physician [place] [phone], [facility] (Office): : [facility] 09/26/2018 - 10/12/2018 Immunizations Immunization Status [...] completed tuberculin skin test; unspecified formulation lotNumber: [id number] expiry: 01/05/2021 Mfg: sanofi pasteur Given 0.1 ml Left Forearm intradermally Step 1 of Multi-step with next step required 98 CVX created date: 09/27/2018 consent date: 09/27/2018 administer ed date: 09/27/2018 TB 2 Step Mantoux Skin Test completed tuberculin skin test; unspecified formulation lotNumber: [id number] expiry: 07/27/2016 Mfg: sanofi pasteur Given 0.1 ml Left Forearm intradermally Step 2 of Multi-step with next step required 98 CVX created date: 07/27/2016 consent date: 07/27/2016 administer ed date: 07/27/2016 discharged 07/28/16 TB 2 Step Mantoux Skin Test completed tuberculin skin test; unspecified formulation lotNumber: [id number] expiry: 02/24/2018 Mfg: sanofi pasteur Given 0.1 [...] date: 07/12/2016 administer ed date: 05/31/2008 PCV13, [id number] completed created date: 07/12/2016 administer ed date: 06/30/2016 Mental Status Section Date Assessment Total Score Description 10/12/2018 BIMS 15 cognitively int act CAM 0 No delirium ind icated PHQ-9 00 10/09/2018 CAM 0 No delirium ind icated PHQ-9 05 mild depression Problems Problem # Description Date of onset Resolved Date Code CodeSystem Concern Status 1 CANDIDIASIS OF SKIN AND NAIL 09/26/[address] active 2 DIFFICULTY IN WALKING, NOT ELSEWHERE CLASSIFIED 09/26/[address] active 3 ENCOUNTER FOR OTHER SPECIFIED SURGICAL AFTERCARE 09/26/[address] active 4 SPINAL STENOSIS, LUMBAR REGION WITHOUT NEUROGENIC CLAUDICATION 09/26/[address] active 5 WEAKNESS 09/26/[address] active 6 ANXIETY DISORDER, UNSPECIFIED 07/12/2016 07/28/[address] completed 7 CONSTIPATION, UNSPECIFIED 07/12/[address] active 8 ENCOUNTER FOR OTHER SPECIFIED SURGICAL AFTERCARE 07/12/2016 07/28/[address] completed 9 ESSENTIAL (PRIMARY) HYPERTENSION 07/12/[address] active 10 INSOMNIA, UNSPECIFIED 07/12/[address] active 11 MAJOR DEPRESSIVE DISORDER, SINGLE EPISODE, UNSPECIFIED 07/12/2016 07/28/[address] completed 12 MUSCLE WEAKNESS (GENERALIZED) 07/12/2016 07/28/[address] completed 13 PERSONAL HISTORY OF NICOTINE DEPENDENCE 07/12/[address] active 14 PRESENCE OF LEFT ARTIFICIAL KNEE JOINT 07/12/[address] active 15 PRESENCE OF RIGHT ARTIFICIAL HIP JOINT 07/12/[address] active 16 SPINAL STENOSIS, LUMBAR REGION 07/12/2016 07/03/[address] completed 17 UNSTEADINESS ON FEET 07/12/2016 07/28/[address] completed Reason for Referral No Reasons for Referral Entered Social History Social History Observation Description Start Date End Date Code Code System Current Smoking Status Tobacco smoking consumption unknown 820517604 SNOMED CT Sex Assigned At Male 1940 [address]2343-5 [facility] Vital Signs Code Code System Vitals Name Values and Units Timing Information 09819-5 [facility] Pain Level Value=0.0 10/12/2018 57018-7 [facility] Weight Squqx=202.0 Units=Lbs 06/2019 8462-4 [facility] Blood Pressure-Diastolic Value=66 Un its=mmHg 10/11/2018 8480-6 [facility] Blood Pressure-Systolic Value=99 Uni ts=mmHg 10/11/2018 9279-1 [facility] Respiratory Rate Value=16.0 Units=/m in 10/11/2018 8310-5 [facility] Body Temperature Value=97.3 Units= F 10/11/2018 8867-4 [facility] Heart rate Value=97.0 Units=/min 06/2019 82156-5 [facility] O2 % BldC Oximetry Value=95.0 Units= % 10/11/2018 8302-2 [facility] Height Value=68.0 Units=Inches 09/26/2018
--- OUTSIDE RECORDS SUMMARY | 2024-12-21 10:52 | XMS_ITS | Clinical Summary ---
Author Organization [facility] Address [address] [place] [id number] Care Team Providers Care Retail Analytics Manager Name Role Phone Robbie Maldonado MD Primary [...] with meals. 100 tablet 04/03/20 19 Active Tmjkx-3-VID-EP A-Fish Oil 1,000 mg (120 mg-180 mg) [...] bed. Length of need 99 months. Bed city collector:nodxM51 .04,A98.1,M54.6 1 unit 09/09/20 20 Active traMADoL [...] history of tobacco use, presenting hazards to [facility] 1983 11/14/2006 07/02/2016 Encounters Date Type Department Care Team Description 12/21/2024 Telephone [address] [place] [address] Robbie Maldonado MD Appointment Request (approval request for 12/21 @ 1:40 pm ) 12/21/2024 Nurse Triage [address] [place] [address] Robbie Maldonado MD Head Injury 12/21/2024 Nurse Triage [address] [address] Robbie Maldonado MD Error-please disregard 12/07/[address] [address] Robbie Maldonado MD Refill Request (Mirtazapine) 12/07/2024 Refill [facility] [address] [place] [address] Robbie Maldonado MD Refill Request (Lorazepam) 12/07/2024 Refill [facility] [address] [place] [address] Robbie Maldonado MD Refill Request (Metoprolol Succinate, Gabapentin) 10/08/[address] [address] Robbie Maldonado MD Refill Request (Amlodipine) from Last 3 Months Immunizations Immunization Administration Dates Next Due AMB INFLUENZA IIV3 (AGE 65+ YRS) PF (Flu Clinic Only) 08/23/2019,07/22/2018 COVID-19 vaccine ([employer]-Bio NTech 30mcg/0.3mL) 12YO+ BIVALENT PF, MDV 02/08/2023,06/17/2022 COVID-19 vaccine (Pfizer-Bio NTech 30mcg/0.3mL) 12YO+ MATTHEW-SUCROSE PF, MDV 01/13/2022 COVID-19 vaccine ([employer] NTLobera Cigars 30mcg/0.3mL) PF, MDV 07/02/2021,12/09/2020,11/18/2020 Hepatitis B (Adult) [...] PM CDT Legal Sex Male 6:14 AM [employer] [employer] [facility] Gender Identity Male 04/13/2021 11:12 AM CDT [...] (206 lb 6.4 oz) 11/28/2023 10:53 AM [facility] Height 168.4 cm (5' 6.3) 06/20/2023 2:30 [...] 06/30/2016, 05/31/2008 Medical Devices Implanted Type Area Brownell Operator Device Identifier Shelf Expiration Date Model / Serial / Lot Chips Canclls 1.0-9.5mm 30cc Aseptic Freeze Dried Strl - [id number] Implanted:Qty: 1 on 03/18/2006 at [facility] Explanted:at [facility] (Quantity not on file) Bone Implants Spine Allosource 01/08/2011 [id number]# / [id number] / [id number] Chips Canclls 1.0-9.5mm 30cc Aseptic Freeze Dried Strl - [id number] Implanted:Qty: 1 on 03/18/2006 at [facility] Explanted:at [facility] (Quantity not on file) Bone Implants Spine Allosource 01/22/2011 [id number]# / [id number] 2 / [id number] Screw Polyaxial 6.5x45mm - [id number] Implanted:Qty: 4 on 03/18/2006 at [facility] [id number]# / / Screw Polyaxial 6.5x50mm - [id number] Implanted:Qty: 2 on 03/18/2006 at [facility] Spine HOWMEDICA 16628515# / / Erik Dixon [id number] - [id number] Implanted:Qty: 6 on 03/18/2006 at [facility] Spine HOWMEDICA 1756-2834 # / / Maria Dolores Dixon Rad 80mm 127mm Radius - [id number] Implanted:Qty: 2 on 03/18/2006 at [facility] Spine HOWMEDICA 68162367# / / Screw Polyaxial 6.5x45mm - [id number] Implanted:Qty: 3 on 05/28/2008 at [facility] Spine HOWMEDICA 59880072# / / Screw Polyaxial 7.5x45mm - [id number] Implanted:Qty: 1 on 05/28/2008 at [facility] 84838588# / / Avs Pl 10x25 Implanted:Qty: 1 on 05/28/2008 at [facility] Spine [id number] / / Description:AVS PL 10X25 Avs Pl Peek Spacer [[id number]][ Implanted:Qty: 1 on 05/28/2008 at [facility] Spine Skyler Copanion [id number] / / Description:AVS PL PEEK SPAC ER Maria Dolores Dixon [id number] - [id number] Implanted:Qty: 1 on 05/28/2008 at [facility] Spine HOWMEDICA 1329-5313 # / / Erik Dixon [id number] - [id number] Implanted:Qty: 9 on 05/28/2008 at [facility] Spine [facility] 6399-1661 # / / [id number] 117abone Canclls Crushed 60cc [[id number]] Implanted:Qty: 1 on 05/28/2008 at [facility] Explanted:at [facility] (Quantity not on file) Spine Musculoskeletal Transplant 08/08/2008 533207# / [id number] / Kit Infuse - [id number] Implanted:Qty: 1 on 05/28/2008 at [facility] Spine SOFAMOR DANEK 7632367# / / [id number] G Screw Polyaxial 6.5x40mm - [id number] Implanted:Qty: 1 on 05/28/2008 at [facility] Spine [facility] 93984083# / / Screw Polyaxial 6.5x45mm - [id number] Implanted:Qty: 1 on 07/10/2008 at [facility] Spine [facility] 31535297# / / Screw Polyaxial 6.5x50mm - [id number] Implanted:Qty: 3 on 07/10/2008 at [facility] Spine HOWMEDICA 35740972# / / Maria Dolores Dixon Rad 90mm 127mm Radius - [id number] Implanted:Qty: 2 on 07/10/2008 at [facility] Spine HOWMEDICA 36805699# / / Erik Dixon [id number] - [id number] Implanted:Qty: 10 on 07/10/2008 at [facility] Spine HOW[employer]ICA 7211-0859 # / / Offset 6mm Neutral Implanted:Qty: 1 on 07/10/2008 at [facility] Spine [id number] / / Description:OFFSET 6MM NEUTR AL Dixon Polyaxial Illiac Screws [[id number]][ Implanted:Qty: 1 on 07/10/2008 at [facility] Explanted:at [facility] (Quantity not on file) Spine [employer] [id number] / / Description:DIXON POLYAXIAL IL LIAC SCREW Dixon Straight Maria Dolores Implanted:Qty: 2 on 07/10/2008 at [facility] Spine [id number] / / Description:DIXON STRAIGHT MARIA DOLORES [id number] Canc 90cc Crushed Freeze Dried [[id number]][[id number]] Implanted:Qty: 1 on 01/06/2011 at [facility] Explanted:at [facility] (Quantity not on file) Spine Musculoskeletal Transplant 09/22/2013 150763# / [id number] / Screw Polyaxial 6.5x45mm - [id number] Implanted:Qty: 2 on 01/06/2011 at [facility] N/A: Lumbar Vertebrae HOWMEDICA 08255004# / / Erik Dixon [id number] - [id number] Implanted:Qty: 13 on 01/06/2011 at [facility] N/A: Lumbar Vertebrae HOW[employer]ICA 3837-8491 # / / Cnnctr Maria Dolores To Maria Dolores 0 Deg Dixon Lp Sm - [id number] Implanted:Qty: 2 on 01/06/2011 at [facility] N/A: Lumbar Vertebrae [employer]ICA 03046419# / / Maria Dolores Dixon [id number] - [id number] Implanted:Qty: 1 on 01/06/2011 at [facility] N/A: Lumbar Vertebrae HOW[employer]ICA 0869-1341 # / / Screw Set Break Off Ti - [id number] Implanted:Qty: 1 on 01/06/2011 at [facility] N/A: Lumbar Vertebrae SOF[employer]OR [employer]ANEK 7642686# / / Screw Multi Axial - [id number] Implanted:Qty: 1 on 01/06/2011 at [facility] N/A: Lumbar Vertebrae SOF[employer]OR [employer]ANEK [id number]# / / Kit Infuse Md - [id number] Implanted:Qty: 1 on 01/06/2011 at [facility] Spine [employer]OR [employer]ANEK 07/03/2013 2989318# / / [id number] C Perimeter Lg 18mm 8 Deg Add-On - [id number] Implanted:Qty: 1 on 01/06/2011 at [facility] Spine SOF[employer]OR DANEK 03/02/2016 8196761# / / [id number] Perimeter Lg 16mm 8 Deg Add-On - [id number] Implanted:Qty: 1 on 01/06/2011 at [facility] Spine SOF[employer]OR DANEK 06/17/2018 [id number]# / / [id number] 16bone 30cc Allosource Crushed Canclls [[id number]] Implanted:Qty: 1 on 07/07/2016 by Sidney Britt MD at [facility] Explanted:at [facility] (Quantity not on file) N/A: Spine Allosource 03/28/2020 [id number]# / [id number] / Screw Lmbr Post 6.5x40mm Xia3 Va - [id number] Implanted:Qty: 2 on 07/07/2016 by Sidney Britt MD at [facility] N/A: Spine Skyler Spine [id number] # / / Screw Lmbr Post 6.5x45mm Xia3 Va - [id number] Implanted:Qty: 2 on 07/07/2016 by Sidney Britt MD at [facility] N/A: Spine [place] Spine [id number] # / / Cnnctr Lmbr Lg 0deg Dixon Ii - [id number] Implanted:Qty: 1 on 07/07/2016 by Sidney Britt MD at [facility] N/A: Spine Skyler Spine 72617027# / / Set Screw Lmbr Xia3 - [id number] Implanted:Qty: 12 on 07/07/2016 by Sidney Britt MD at [facility] N/A: Spine Skyler Spine 88884879# / / Cnnctr Maria Dolores To Maria Dolores 0 Deg Dixon Lp Sm - [id number] Implanted:Qty: 2 on 07/07/2016 by Sidney Britt MD at [facility] N/A: Spine [place] Spine 90216035# / / Maria Dolores Lmbr [id number] Xia3 Cvd Titnm - [id number] Implanted:Qty: 2 on 07/07/2016 by Sidney Britt MD at [facility] N/A: Spine Skyler Spine 79715705# / / [id number] 4bone Matrix 6cc Tyler Dbf Putty Dbm Implanted:Qty: 1 on 09/23/2018 by Armen Lyons MD at [facility] Explanted:at [facility] (Quantity not on file) Spine Medtronic Spine/Ortho 07/10/2020 [id number]# / [id number] / [id number] 4bone 1-4mm 30cc Medtronic Chips Canclls Freeze Dried Implanted:Qty: 1 on 09/23/2018 by Armen Lyons MD at [facility] Explanted:at [facility] (Quantity not on file) Spine Medtronic Spine/Ortho 02/21/2023 578816# / [id number] / Spacer Lmbr 6x22mm Capstone Tlif Peek - [id number] Implanted:Qty: 1 on 09/23/2018 by Armen Lyons MD at [facility] Spine Medtronic Spine/Ortho 08/28/2026 6670705# / / [id number] Set Screw Lmbr Ant 5.5mm Solera Break Off - [id number] Implanted:Qty: 2 on 09/23/2018 by Armen Lyons MD at [facility] Spine Medtronic Spine/Ortho 7069601# / / Screw Lmbr Post 6.5x45mm Solera 5.5/6 Va Cocr - [id number] Implanted:Qty: 2 on 09/23/2018 by Armen Lyons MD at [facility] Spine Medtronic Spine/Ortho [id number] 45# / / Maria Dolores Lmbr 60x5.5mm Solera 5.5/6cvd Titnm - [id number] Implanted:Qty: 1 on 09/23/2018 by Armen Lyons MD at [facility] Spine Medtronic Spine/Ortho [id number] 0# / / Maria Dolores Lmbr 70x5.5mm Solera 5.5/6cvd Titnm - [id number] Implanted:Qty: 1 on 09/23/2018 by Armen Lyons MD at [facility] Spine Medtronic Spine/Ortho [id number] 0# / / Cnnctr Lmbr 6.35x5.5mm Maria Dolores Connect Variable Titnm Hiren - [id number] Implanted:Qty: 2 on 09/23/2018 by Armen Lyons MD at [facility] Spine Medtronic Spine/Ortho [id number] # / / Set Screw Lmbr Std Maria Dolores Connection Titnm - [id number] Implanted:Qty: 4 on 09/23/2018 by Armen Lyons MD at [facility] Spine Medtronic Spine/Ortho [id number] # / / Insurance [id number] [place] [id number] [employer] MEDICARE ADVANTAGE [id number] [place] [id number] Advance Directives Documents on File Type Date Recorded 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
--- OUTSIDE RECORDS SUMMARY | 2024-12-21 10:52 | XMS_ITS | Continuity of Care Document ---
Author Organization [facility] Address [address] [place] [address] Phone Care Team Providers Care Outpatient Dietitian Name Role Phone Sebastián West Unavailable Unavailable [...] Office/Outpa tient Visit,Est, Mod [facility], [address] [facility], [place], [place], [id number], tel:[phone] [facility] [place] [facility] Sep-0 1- 2 Panvica Sebastián. [facility], [address] [place] [address], [address], [id number] , [place]. tel:[phone] Referring Provider: King Woodson, [facility] [address] [facility], [place], [address]. tel:[phone] Office/Outpa tient Visit,Est, Mod [facility], [address] [facility], [place], [place], [id number], [place] tel:[phone] [facility] [place] Pain in thoracic spine 1 Panvica Sebastián. [facility], [address] [place] [address], [address], [place], [place], [id number] , [place]. tel:[phone] Referring Provider: King Woodson, [facility] [address] [facility], [place], [address]. tel:[phone] Office/Outpa tient Visit,Est, Mod [facility], [address] [place] [address], [id number], [place] tel:[phone] [facility] [place] [facility] in [facility] spine Nov-0 0 Panvica Sebastián. [facility], [address] [place] [address], [address], [place], [place], [id number] , [place]. tel:[phone] Referring Provider: King Woodson, [address], [place], [address]. tel:[phone] Office/Outpa tient Visit,Est, Mod [facility], [address] [place] [address], [id number], [place] tel:[phone] [facility] Encounter for follow-up examination after completed treatment for conditions other than malignant neoplasm 9 Panvica Sebastián. [facility], [address] [place] [address], [address], [place], [place], [id number] , [place]. [phone] Referring Provider: King Woodson, [facility] [address], [place], [address]. tel:[phone] Office/Outpa tient Visit,Est, Mod [facility], [address] [place] [address], [id number], [place] tel:[phone] [facility] Encounter for follow-up examination after completed treatment for conditions other than malignant neoplasm 9 Panvica Sebastián. [facility], [address] [place] [address], [address], [place], [place], [id number] , [place]. [phone] Referring Provider: King Woodson, [address], [place], [address]. tel:[phone] Office/Outpa tient Visit,Est, Mod [facility], [address], [place], [id number], [place] tel:[phone] [facility] Encounter for follow-up examination after completed treatment for conditions other than malignant neoplasm 9 Panvica Sebastián. [facility], [address] [place] [address], [address], [place], [place], [id number] , . tel:[phone] Referring Provider: King Woodson, Zackary [facility] [address], [place], [address]. tel:[phone] [facility], [address] [place] [address], [id number], [place] tel:[phone] [facility] [place] Arthrodesis status 9 Lyons Armen. [facility], [address] [place] [address], [id number] , . [phone] Referring Provider: King Woodson, Topmission [facility], [place], [address]. [phone] [facility], [address] [place] [address], [id number], [place] tel:[phone] [facility] No Information 8 Lyons Armen. [facility], [address] [place] [address], [place], [place], [id number] , [place]. tel:[phone] Referring Provider: King Woodson, [facility], [place], [address]. tel:[phone] Office/Outpa tient Visit,Est, Mod [facility], [address] [place] [address], [id number], [place] tel:[phone] [facility] [place] Spinal stenosis, lumbar region 7 David Palafox. [address] [place] [address], [place], [place], [id number] , [place]. tel:[phone] Referring Provider: King Woodson Topmission [address] [facility], [place], [address]. tel:[phone] [facility], [address] [place] [address], [id number], [place] tel:[phone] [facility] [place] Spinal stenosis, lumbar regionOther intervertebra l disc displacement, lumbar region 6 Mehbod Amir. [facility], [address] [place] [address], [id number] , [place]. [phone] Referring Provider: King Woodson Topmission [address] [facility], [place], [address]. tel:[phone] [facility], [address], [place], [place], [id number], [place] [phone] [facility] No Information 6 Mehbod Amir. [facility], [address] [place] [address] [address], [place], [place], [address] , [place]. [phone] Referring Provider: King Woodson, [facility] [address] , [place], [address]. tel:[phone] Office/Outpa tient Visit,New, Mod [facility], [address], [place], [place], [id number], [place] [phone] [facility] [place] Spinal stenosis, lumbar regionOther intervertebra l disc displacement, lumbar region 6 Mehbod Amir. [facility], [address], [place], [place], [address] , [place]. tel:[phone] Referring Provider: King Woodson, [facility] [address], [place], [address]. tel:[phone] Office/Outpa tient Visit,Est, Mod Z [facility], [address] [place] [address], [place], [address], [place] tel:[phone] [facility] [place] No Information 3 Ha Fortune. [facility], [address] [facility], [place], [address], [place]. [phone] Referring Provider: Jalil Mart, [facility] [address] [facility], [place], [address]. tel:[phone] Z [facility], [address] [place], [place] [address]ite [address], [place], [address], [place] [phone] [facility] No Information 3 David Palafox. [address] [facility] [address], [place], [place], [id number] , [place]. [phone] Office/Outpa tient Visit,Est, Low Z [facility], [address], [place], [address], [place] tel:[phone] [facility] Moment No Information 2 Mehbod Amir. [facility], [address] [place] [address] [address], [place], [place], [id number] , [place]. tel:[phone] Referring Provider: Jalil Mart, [facility] [address] [facility], [place], [address]. tel:[phone] Z [facility], [address] [place] [address] 600, [place], [address], [place] tel:[phone] [facility] 0 2 Eckroth Javy. [address] [place] [address] 600, [place], [place], [id number] , [place]. tel: [phone] Office/Outpa tient Visit,Est, Mod Z [facility], [address] [place] [address] 600, [place], [address], [place] tel:[phone] [facility] No Information 2 Mehbod Amir. [facility], [address] [place] [address] [address], [place], [place], [id number] , [place]. tel: [phone] Referring Provider: Jalil Mart, [facility] [address] [facility], [place], [address]. [phone] Office/Outpa tient Visit,Est, Mod Z [facility], [address] [place], [place] [address]ite [address], [place], [address], [place] tel:[phone] [facility] Moment No Information 2 Mehbod Amir. [facility], [address] [place] [address] [address], [place], [place], [address] , [place]. tel:[phone] Referring Provider: Jalil Mart, [facility] [address] [facility], [place], [address]. tel:[phone] Office/outpa tient visit,est, low Z [facility], [address] [place], [place] [address]ite [address], [place], [address], [place] [phone] [facility] No Information 1 Mehbod Amir. [facility], [address], [place], [address] , . [phone] Referring Provider: Jalil Mart, [facility] [address] [facility], [place], [address]. [phone] Z [facility], [address] [place] [address], [facility], tel:[phone] [facility] No Information 1 Mehbod Amir. [facility], [address] [place] [address] [address], [place], [address] , [place]. [phone] Referring Provider: Jalil Mart, [facility] [address] [address], [address]. [phone] [facility], [address], [address], [place] tel:[phone] [facility] No Information 1 Mehbod Amir. [facility], [address], [id number] , [place]. [phone] Referring Provider: Jalil Mart, [facility] [address] [place] [address], [address]. [phone] Z [facility], [address] [place] [address], [address], [place] tel:[phone] [facility] No Information 1 Mehbod Amir. [facility], [address], [place], [address] , [place]. [phone] Referring Provider: Jalil Mart, [facility] [address] [place], [address]. tel:[phone] Office/outpa tient visit,est, low Z [facility], [address], [place], [address], [place] [phone] [facility] No Information Dec-0 9-201 1 Mehbod Amir. [facility], [address] [facility] [address], [place], [place], [address] , [place]. tel:[phone] Referring Provider: Jalil Mart, [facility] [address] [facility], [place], [address]. tel:[phone] Office/outpa tient visit,est, low Z [facility], [address] [facility] [address], [place], [address], [place] tel:[phone] [facility] No Information 4-201 1 Mehbod Amir. [facility], [address], [place], [place], [address] , [place]. tel:[phone] Referring Provider: Jalil Mart, [facility] [address] [place], [address]. tel:[phone] Office/outpa tient visit,est, low Z [facility], [address] [place], [place] [address], [place], [address], [place] tel:[phone] [facility] No Information 0 1-201 0 Mehbod Amir. [facility], [address], [place], [place], [address] , [place]. tel:[phone] Referring Provider: Jalil Mart, [facility] [address] [place], [address]. tel:[phone] Office/outpa tient visit,est, low Z [facility], [address], [place], [address], [place] [phone] [facility] No Information Jul-0 5-200 9 Mehbod Amir. [facility], [address] [place] [address] [address], [place], [place], [address] , [place]. [phone] Referring Provider: Jalil Mart, [facility] [address] [facility], [place], [address]. tel:[phone] Office/outpa tient visit,est, low Z [facility], [address] [place], [place] [address]ite [address], [place], [address], [place] tel:[phone] [facility] No Information Sukh-0 1-200 9 Mehbod Amir. [facility], [address], [place], [place], [address] , [place]. tel:[phone] Referring Provider: Jalil Mart, [facility] [address] [facility], [place], [address]. tel:[phone] Office/outpa tient visit,est, low Z [facility], [address] [place], [place] [address]ite [address], [place], [address], [place] tel:[phone] [facility] No Information Dec-3 0-200 9 Mehbod Amir. [facility], [address], [place], [place], [address] , [place]. tel:[phone] Referring Provider: Jalil Mart, [facility] [address] [facility], [place], [address]. tel:[phone] Office/outpa tient visit,est, mod Z [facility] [place], [address] [place], [place] [address]ite [facility], [place], [address], [place] tel:[phone] [facility] No Information 2-200 9 Mehbod Amir. [facility], [address] [place] [address] [address], [place], [place], [address] , [place]. tel:[phone] Referring Provider: Jalil Mart, [facility] [address] [facility], [place], [address]. tel:[phone] Z [facility] [place], [address] [place], [place] [address]ite [facility], [place], [address], [place] tel:[phone] [facility] No Information 5-200 8 Mehbod Amir. [facility], [address], [place], [place], [address] , [place]. [phone] Referring Provider: Jalil Mart, [facility] [address] [place] [address], [place], [address]. [phone] Z [facility], [address], [place], [address], [place] tel:[phone] [facility] No Information 0 1-200 8 Mehbod Amir. [facility], [address], [place], [place], [address] , [place]. tel:[phone] Referring Provider: Jalil Mart, [facility] [address] [place] [address], [place], [address]. tel:[phone] Office/outpa tient visit,[facility], low Z [facility], [address] [place], [place] [address]ite [address], [place], [address], [place] tel:[phone] [facility] No Information 3-200 8 Mehbod Amir. [facility], [address] [place] [address] [address], [place], [place], [address] , [place]. [phone] Referring Provider: Jalil Mart, [facility] [address] [place] [address], [address]. tel:[phone] Z [facility], [address] [place], [place] [address]ite [facility], [place], [address], [place] tel:[phone] [facility] No Information 0 6-200 8 Mehbod Amir. [facility], [address] [place] [address] [address], [place], [place], [address] , [place]. [phone] Referring Provider: Jalil Mart, [facility] [address] [place] [address], [place], [address]. tel:[phone] Z [facility], [address] [place], [place] [address]ite [facility], [place], [address], [place] tel:[phone] [facility] No Information Sep-1 5-200 8 Mehbod Amir. [facility], [address] [place] [address] [address], [place], [place], [address] , [place]. tel:[phone] Referring Provider: Jalil Mart, [facility] [address] [facility], [place], [address]. tel:[phone] Z [facility], [address] [place], [place] [address]ite [address], [place], [address], [place] tel:[phone] [facility] No Information Sep-1 2-200 8 Mehbod Amir. [facility], [address] [place] [address] [address], [place], [place], [address] , [place]. tel:[phone] Referring Provider: Jalil Mart, [facility] [address] [place] [address], [place], [address]. tel:[phone] Office/outpa tient visit,est, low Z [facility], [address] [place], [place] [address]ite [address], [place], [address], [place] tel:[phone] [facility] No Information Sukh-2 3-200 8 Mehbod Amir. [facility], [address] [place] [address] [address], [place], [place], [address] , [place]. tel:[phone] Referring Provider: Jalil Mart, [facility] [address] [facility], [place], [address]. tel:[phone] Office/outpa tient visit,est, low Z [facility], [address], [place], [address], [place] tel:[phone] [facility] No Information Apr-1 0-200 8 Mehbod Amir. [facility], [address] [place] [address] [address], [place], [place], [address] , [place]. [phone] Referring Provider: Jalil Mart, [facility] [address] [facility], [place], [address]. tel:[phone] Office/outpa tient visit,est, low Z [facility], [address] [place] [address] 600, [place], [address], [place] tel:[phone] [facility] [place] No Information 200 8 Mehbod Amir. [facility], [address] [facility] [address], [place], [place], [address] , [place]. tel: [phone] Referring Provider: Jalil Mart, [facility] [address] [facility], [place], [address]. tel:[phone] Office/outpa tient visit,est, low Z [facility], [address], [place], [address], [place] tel:[phone] [facility] [place] No Information 200 7 Mehbod Amir. [facility], [address], [place], [place], [address] , [place]. tel: [phone] Referring Provider: Jalil Mart, [facility] [address] [place] [address], [address]. [phone] Office/outpa tient visit,est, low Z [facility], [address], [place], [address], [place] tel:[phone] [facility] No Information 200 7 Mehbod Amir. [facility], [address] [place] [address] [address], [place], [place], [address] , [place]. tel: [phone] Referring Provider: Jalil Mart, [facility] [address] [place], [address]. [phone] Office/outpa tient visit,est, low Z [facility], [address], [place], [address], [place] tel:[phone] [facility] [place] No Information 8-200 7 Mehbod Amir. [facility], [address] [place] [address] [address], [place], [place], [address] , [place]. tel:[phone] Referring Provider: Jalil Mart, [facility] [address] [facility], [place], [address]. tel:[phone] Office/outpa tient visit,est, low Z [facility], [address] [place] [address], [address], [place] tel:[phone] [facility] [place] No Information 200 6 Mehbod Amir. [facility], [address] [place] [address] [address], [place], [address] , [place]. tel:[phone] Referring Provider: Jalil Mart, [facility] [address] [facility], [place], [address]. tel:[phone] [facility] [place], [address], [facility], [place] tel:[phone] [facility] [place] No Information 6 Mehbod Amir. [facility], [address] [place] [address] [address], [place], [address] , [place]. tel:[phone] Referring Provider: Jalil Mart, [facility] [address] [facility], [place], [address]. tel:[phone] [facility] [place], [address] [place] [address], [address], [place] tel:[phone] [facility] No Information 6 Mehbod Amir. [facility], [address] [place] [address] [address], [place], [address] , [place]. tel:[phone] Referring Provider: Jalil Mart, [facility] [address] [place], [address]. tel:[phone] Family History Family Member Type Diagnosis Age At Onset No Information Payers Payer name Insurance type Covered alliance party ID Authoryash barroso(s) [employer] [facility] 2021 CI [id number] Social History Type Description Quantity Date Captured [...]
== END 2024-12-21 10:52 | disposition home or self-care (01) ==
LOC: ED 10:49
PROVIDERS: Emergency Provider Internal Medicine; PCP Family Medicine
DX: S00.81XA Abrasion of other part of head, initial encounter (principal); Z23 Encounter for immunization; W22.8XXA Striking against or struck by other objects, initial encounter
CPT/HCPCS: 90471; 90715; 99283

== ENCOUNTER 2024-12-22 14:55 | Outpatient (CLI) | payer MEDICARE, SELFPAY | END 2024-12-22 14:56 | disposition home or self-care (01) | LOC: AMB 12-24 11:35 | PROVIDERS: PCP Family Medicine; Visit Provider Emergency Medicine Emergency Medical Services | DX: R53.1 Weakness (principal) | CPT/HCPCS: A0425; A0429 ==

== ENCOUNTER 2024-12-22 15:10 | Observation (INO) | payer MEDICARE, SELFPAY ==
[2024-12-22] VITALS (24 sets, daily range): BP systolic 112–146; BP diastolic 72–82; PULSE 78–95; RESP 6–21; TEMP 36.8–38.2; O2SAT 91–98; BMI 32.1
--- OUTSIDE RECORDS SUMMARY | 2024-12-22 15:12 | XMS_ITS | Continuity of Care Document ---
Author Organization [facility] Address [address] [place] [address] Phone Care Team Providers Care Multimedia Engineer Name Role Phone Sebastián West Unavailable Unavailable [...] Office/Outpa tient Visit,Est, Mod [facility], [address] [facility], [place], [place], [id number], tel:[phone] [facility] [place] Pain in thoracic spine Sep-0 1- 2 Panvica Sebastián. [facility], [address] [place] [address], [address], [id number] , [place]. tel:[phone] Referring Provider: King Woodson, [facility] [address] [facility], [place], [address]. tel:[phone] Office/Outpa tient Visit,Est, Mod [facility], [address] [facility], [place], [place], [id number], [place] tel:[phone] [facility] [place] Pain in thoracic spine 1 Panvica Sebastián. [facility], [address] [place] [address], [address], [place], [place], [id number] , [place]. tel:[phone] Referring Provider: King Woodson, [facility] [address] [facility], [place], [address]. tel:[phone] Office/Outpa tient Visit,Est, Mod [facility], [address] [place] [address], [id number], [place] tel:[phone] [facility] [place] Pain in thoracic spine Nov-0 0 Panvica Sebastián. [facility], [address] [place] [address], [address], [place], [place], [id number] , [place]. tel:[phone] Referring Provider: King Woodson, [address], [place], [address]. tel:[phone] Office/Outpa tient Visit,Est, Mod [facility], [address] [place] [address], [id number], [place] tel:[phone] [facility] Encounter for follow-up examination after completed treatment for conditions other than malignant neoplasm 9 Panvica Sebastián. [facility], [address] [place] [address], [address], [place], [place], [id number] , [place]. [phone] Referring Provider: King Woodson, [facility] [address], [place], [address]. tel:[phone] Office/Outpa tient Visit,Est, Mod [facility], [address] [place] [address], [id number], [place] tel:[phone] [facility] Encounter for follow-up examination after completed treatment for conditions other than malignant neoplasm 9 Panvica Sebastián. [facility], [address] [place] [address], [address], [place], [place], [id number] , [place]. [phone] Referring Provider: King Woodson, [address], [place], [address]. tel:[phone] Office/Outpa tient Visit,Est, Mod [facility], [address], [place], [place], [id number], [place] tel:[phone] [facility] Encounter for follow-up examination after completed treatment for conditions other than malignant neoplasm 9 Panvica Sebastián. [facility], [address] [place] [address], [address], [place], [place], [id number] , . tel:[phone] Referring Provider: King Woodson, Zackary [facility] [address], [place], [address]. tel:[phone] [facility], [address] [place] [address], [id number], [place] tel:[phone] [facility] [place] Arthrodesis status 9 Lyons Armen. [facility], [address] [place] [address], [id number] , . [phone] Referring Provider: King Woodson, Promodity [address] [facility], [place], [address]. [phone] [facility], [address] [place] [address], [id number], [place] tel:[phone] [facility] No Information 8 Lyons Armen. [facility], [address] [place] [address], [place], [id number] , [place]. tel:[phone] Referring Provider: King Woodson, Promodity [facility], [place], [address]. tel:[phone] Office/Outpa tient Visit,Est, Mod [facility], [address] [place] [address], [id number], [place] tel:[phone] [facility] [place] Spinal stenosis, lumbar region 7 David Palafox. [address] [place] [address], [place], [id number] , [place]. tel:[phone] Referring Provider: King Woodson Promodity [address] [facility], [place], [address]. tel:[phone] [facility], [address] [place] [address], [id number], [place] tel:[phone] [facility] [place] Spinal stenosis, lumbar regionOther intervertebra l disc displacement, lumbar region 6 Mehbod Amir. [facility], [address] [place] [address], [id number] , [place]. [phone] Referring Provider: King Woodson Promodity [address] [facility], [place], [address]. tel:[phone] [facility], [address], [place], [place], [id number], [place] [phone] [facility] No Information 6 Mehbod Amir. [facility], [address] [place] [address] [address], [place], [place], [id number] , [place]. [phone] Referring Provider: King Woodson, [facility] [address] , [place], [address]. tel:[phone] Office/Outpa tient Visit,New, Mod [facility], [address], [place], [place], [id number], [place] [phone] [facility] [place] Spinal stenosis, lumbar regionOther intervertebra l disc displacement, lumbar region 6 Mehbod Amir. [facility], [address], [place], [place], [id number] , [place]. tel:[phone] Referring Provider: King Woodson, [facility] [address], [place], [address]. tel:[phone] Office/Outpa tient Visit,Est, Mod Z [facility], [address] [place] [address], [place], [address], [place] tel:[phone] [facility] [place] No Information 3 Ha Fortune. [facility], [address] [facility], [place], [address], [place]. [phone] Referring Provider: Jalil Mart, [facility] [address] [facility], [place], [address]. tel:[phone] Z [facility], [address] [place], [place] [address], [place], [address], [place] [phone] [facility] No Information 3 David Palafox. [address] [facility] [address], [place], [place], [id number] , [place]. [phone] Office/Outpa tient Visit,Est, Low Z [facility], [address], [place], [address], [place] tel:[phone] [facility] No Information 2 Mehbod Amir. [facility], [address] [place] [address] [address], [place], [place], [id number] , [place]. tel:[phone] Referring Provider: Jalil Mart, [facility] [address] [facility], [place], [address]. tel:[phone] Z [facility], [address] [place] [address] [address], [place], [address], [place] tel:[phone] [facility] 0 2 Eckroth Javy. [address] [place] [address] 600, [place], [place], [id number] , [place]. tel: [phone] Office/Outpa tient Visit,Est, Mod Z [facility], [address] [place] [address] [address], [place], [address], [place] tel:[phone] [facility] No Information 2 Mehbod Amir. [facility], [address] [place] [address] 600, [place], [place], [id number] , [place]. tel: [phone] Referring Provider: Jalil Mart, [facility] [address] [facility], [place], [address]. [phone] Office/Outpa tient Visit,Est, Mod Z [facility], [address] [place], [place] [address], [place], [address], [place] tel:[phone] [facility] No Information 2 Mehbod Amir. [facility], [address] [place] [address] [address], [place], [place], [id number] , [place]. tel:[phone] Referring Provider: Jalil Mart, [facility] [address] [facility], [place], [address]. tel:[phone] Office/outpa tient visit,est, low Z [facility], [address] [place], [place] [address], [place], [address], [place] [phone] [facility] No Information 1 Mehbod Amir. [facility], [address] [place], [id number] , . [phone] Referring Provider: Jalil Mart, [facility] [address] [facility], [place], [address]. [phone] Z [facility], [address] [place] [address], [facility], tel:[phone] [employer] [facility] No Information 1 Mehbod Amir. [facility], [address] [place] [address] [address] [place], [id number] , [place]. [phone] Referring Provider: Jalil Mart, [facility] [address] [place] [address], [address]. [phone] [facility], [address], [address], [place] tel:[phone] [facility] No Information 1 Mehbod Amir. [facility], [address], [id number] , [place]. [phone] Referring Provider: Jalil Mart, [facility] [address] [place] [address], [address]. [phone] Z [facility], [address] [place] [address], [address], [place] tel:[phone] [facility] No Information 1 Mehbod Amir. [facility], [address] [place], [place], [id number] , [place]. [phone] Referring Provider: Jalil Mart, [facility] [address] [place], [address]. tel:[phone] Office/outpa tient visit,est, low Z [facility], [address], [place], [address], [place] [phone] [facility] No Information Dec-0 9-201 1 Mehbod Amir. [facility], [address] [facility] [address], [place], [place], [address] , [place]. tel:[phone] Referring Provider: Jalil Mart, [facility] [address] [facility], [place], [address]. tel:[phone] Office/outpa tient visit,est, low Z [facility], [address] [facility] [address], [place], [address], [place] tel:[phone] [facility] No Information 4-201 1 Mehbod Amir. [facility], [address], [place], [place], [address] , [place]. tel:[phone] Referring Provider: Jalil Mart, [facility] [address] [place], [address]. tel:[phone] Office/outpa tient visit,est, low Z [facility], [address] [place], [place] [address], [place], [address], [place] tel:[phone] [facility] No Information 0 1-201 0 Mehbod Amir. [facility], [address], [place], [place], [address] , [place]. tel:[phone] Referring Provider: Jalil Mart, [facility] [address] [place], [address]. tel:[phone] Office/outpa tient visit,est, low Z [facility], [address], [place], [address], [place] [phone] [facility] No Information Jul-0 5-200 9 Mehbod Amir. [facility], [address] [place] [address] [address], [place], [place], [address] , [place]. [phone] Referring Provider: Jalil Mart, [facility] [address] [facility], [place], [address]. tel:[phone] Office/outpa tient visit,est, low Z [facility], [address] [place], [place] [address]ite [address], [place], [address], [place] tel:[phone] [facility] No Information Sukh-0 1-200 9 Mehbod Amir. [facility], [address], [place], [place], [id number] , [place]. tel:[phone] Referring Provider: Jalil Mart, [facility] [address] [facility], [place], [address]. tel:[phone] Office/outpa tient visit,est, low Z [facility], [address] [place], [place] [address], [place], [address], [place] tel:[phone] [facility] No Information Dec-3 0-200 9 Mehbod Amir. [facility], [address], [place], [place], [address] , [place]. tel:[phone] Referring Provider: Jalil Mart, [facility] [address] [facility], [place], [address]. tel:[phone] Office/outpa tient visit,est, mod Z [facility], [address] [place], [place] [address]ite [facility], [place], [address], [place] tel:[phone] [facility] No Information 2-200 9 Mehbod Amir. [facility], [address] [place] [address] [address], [place], [place], [address] , [place]. tel:[phone] Referring Provider: Jalil Mart, [facility] [address] [facility], [place], [address]. tel:[phone] Z [facility], [address] [place], [place] [address]ite [facility], [place], [address], [place] tel:[phone] [facility] No Information 5-200 8 Mehbod Amir. [facility], [address], [place], [place], [id number] , [place]. [phone] Referring Provider: Jalil Mart, [facility] [address] [place] [address], [place], [address]. [phone] Z [facility], [address], [place], [address], [place] tel:[phone] [facility] No Information 0 1-200 8 Mehbod Amir. [facility], [address], [place], [place], [address] , [place]. tel:[phone] Referring Provider: Jalil Mart, [facility] [address] [place] [address], [place], [address]. tel:[phone] Office/outpa tient visit,[facility], low Z [facility], [address] [place], [place] [address], [place], [address], [place] tel:[phone] [facility] No Information 3-200 8 Mehbod Amir. [facility], [address] [place] [address] [address], [place], [place], [address] , [place]. [phone] Referring Provider: Jalil aMrt, [facility] [address] [place] [address], [address]. tel:[phone] Z [facility], [address] [place], [place] [address]ite [facility], [place], [address], [place] tel:[phone] [facility] No Information 0 6-200 8 Mehbod Amir. [facility], [address] [place] [address] [address], [place], [place], [address] , [place]. [phone] Referring Provider: Jalil Mart, [facility] [address] [place] [address], [place], [address]. tel:[phone] Z [facility], [address] [place], [place] [address]ite [facility], [place], [address], [place] tel:[phone] [facility] No Information Sep-1 5-200 8 Mehbod Amir. [facility], [address] [place] [address] [address], [place], [place], [id number] , [place]. tel:[phone] Referring Provider: Jalil Mart, [facility] [address] [facility], [place], [address]. tel:[phone] Z [facility], [address] [place], [place] [address], [place], [address], [place] tel:[phone] [facility] No Information Sep-1 2-200 8 Mehbod Amir. [facility], [address] [place] [address] [address], [place], [place], [address] , [place]. tel:[phone] Referring Provider: Jalil Mart, [facility] [address] [place] [address], [place], [address]. tel:[phone] Office/outpa tient visit,est, low Z [facility], [address] [place], [place] [address], [place], [address], [place] tel:[phone] [facility] No Information Sukh-2 3-200 8 Mehbod Amir. [facility], [address] [place] [address] [address], [place], [place], [address] , [place]. tel:[phone] Referring Provider: Jalil Mart, [facility] [address] [facility], [place], [address]. tel:[phone] Office/outpa tient visit,est, low Z [facility], [address], [place], [address], [place] tel:[phone] [facility] No Information Apr-1 0-200 8 Mehbod Amir. [facility], [address] [place] [address] [address], [place], [place], [address] , [place]. [phone] Referring Provider: Jalil Mart, [facility] [address] [facility], [place], [address]. tel:[phone] Office/outpa tient visit,est, low Z [facility], [address] [place] [address] 600, [place], [address], [place] tel:[phone] [facility] [place] No Information 200 8 Mehbod Amir. [facility], [address] [facility] [address], [place], [place], [address] , [place]. tel: [phone] Referring Provider: Jalil Mart, [facility] [address] [facility], [place], [address]. tel:[phone] Office/outpa tient visit,est, low Z [facility], [address], [place], [address], [place] tel:[phone] [facility] [place] No Information 200 7 Mehbod Amir. [facility], [address], [place], [place], [address] , [place]. tel: [phone] Referring Provider: Jalil Mart, [facility] [address] [place] [address], [address]. [phone] Office/outpa tient visit,est, low Z [facility], [address], [place], [address], [place] tel:[phone] [facility] No Information 200 7 Mehbod Amir. [facility], [address] [place] [address] [address], [place], [place], [address] , [place]. tel: [phone] Referring Provider: Jalil Mart, [facility] [address] [place], [address]. [phone] Office/outpa tient visit,est, low Z [facility], [address], [place], [address], [place] tel:[phone] [facility] [place] No Information 8-200 7 Mehbod Amir. [facility], [address] [place] [address] [address], [place], [place], [address] , [place]. tel:[phone] Referring Provider: Jalil Mart, [facility] [address] [facility], [place], [address]. tel:[phone] Office/outpa tient visit,est, low Z [facility], [address] [place] [address], [address], [place] tel:[phone] [facility] [place] No Information 200 6 Mehbod Amir. [facility], [address] [place] [address] [address] [place], [place], [address] , [place]. tel:[phone] Referring Provider: Jalil Mart, [facility] [address] [facility], [place], [address]. tel:[phone] [facility], [address], [facility], [place] tel:[phone] [facility] [place] No Information 6 Mehbod Amir. [facility], [address] [place] [address] [address] [place], [place], [address] , [place]. tel:[phone] Referring Provider: Jalil Mart, [facility] [address] [facility], [place], [address]. tel:[phone] [facility], [address] [place] [address], [address], [place] tel:[phone] [facility] No Information 6 Mehbod Amir. [facility], [address] [place] [address] [address] [place], [place], [address] , [place]. tel:[phone] Referring Provider: Jalil Mart, [facility] [address] [place], [address]. tel:[phone] Family History Family Member Type Diagnosis Age At Onset No Information Payers Payer name Insurance type Covered alliance party ID Authoryash barroso(s) [employer] [facility] 2021 CI [id number] Social History Type Description Quantity Date Captured [...]
--- OUTSIDE RECORDS SUMMARY | 2024-12-22 15:12 | XMS_ITS | Clinical Summary ---
Author Organization [employer] Address [address] [place] [id number] Care Team Providers Care Urban And Regional Planner Name Role Phone Robbie Maldonado MD Primary [...] with meals. 100 tablet 04/03/20 19 Active Ydsfr-4-NCQ-EP A-Fish Oil 1,000 mg (120 mg-180 mg) [...] bed. Length of need 99 months. 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:nodxM51 .04,A98.1,M54.6 1 unit 09/09/20 20 Active traMADoL [...] history of tobacco use, presenting hazards to [facility] 1983 11/14/2006 07/02/2016 Encounters Date Type Department Care Team Description 12/21/2024 Telephone [facility] [address] [place] [address] Robbie Maldonado MD Appointment Request (approval request for 12/21 @ 1:40 pm ) 12/21/2024 Nurse Triage [facility] [address] [place] [address] Robbie Maldonado MD Head Injury 12/21/2024 Nurse Triage [address] [address] Robbie Maldonado MD Error-please disregard 12/07/[address] [address] Robbie Maldonado MD Refill Request (Mirtazapine) 12/07/2024 Refill [facility] [address] [place] [address] Robbie Maldonado MD Refill Request (Lorazepam) 12/07/2024 Refill [facility] [address] [place] [address] Robbie Maldonado MD Refill Request (Metoprolol Succinate, Gabapentin) 10/08/[address] [address] Robbie Maldonado MD Refill Request (Amlodipine) from Last 3 Months Immunizations Immunization Administration Dates Next Due AMB INFLUENZA IIV3 (AGE 65+ YRS) PF (Flu Clinic Only) 08/23/2019,07/22/2018 COVID-19 vaccine (Sparxent-Bio NTech 30mcg/0.3mL) 12YO+ BIVALENT PF, MDV 02/08/2023,06/17/2022 COVID-19 vaccine (Pfizer-Bio NTech 30mcg/0.3mL) 12YO+ MATTHEW-SUCROSE PF, MDV 01/13/2022 COVID-19 vaccine (Odojo NTPatient Conversation Media 30mcg/0.3mL) PF, MDV 07/02/2021,12/09/2020,11/18/2020 Hepatitis B (Adult) [...] PM CDT Legal Sex Male 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 Gender Identity Male 04/13/2021 11:12 AM CDT [...] (206 lb 6.4 oz) 11/28/2023 10:53 AM CORK INSULATOR HELPER Height 168.4 cm (5' 6.3) 06/20/2023 2:30 [...] 06/30/2016, 05/31/2008 Medical Devices Implanted Type Area Banking Representative Device Identifier Shelf Expiration Date Model / Serial / Lot Chips Canclls 1.0-9.5mm 30cc Aseptic Freeze Dried Strl - [id number] Implanted:Qty: 1 on 03/18/2006 at [facility] Explanted:at [facility] (Quantity not on file) Bone Implants Spine Allosource 01/08/2011 [id number]# / [id number] / [id number] Chips Canclls 1.0-9.5mm 30cc Aseptic Freeze Dried Strl - [id number] Implanted:Qty: 1 on 03/18/2006 at [facility] Explanted:at [facility] (Quantity not on file) Bone Implants Spine Allosource 01/22/2011 [id number]# / [id number] 2 / [id number] 2 Screw Polyaxial 6.5x45mm - [id number] Implanted:Qty: 4 on 03/18/2006 at [facility] Spine [employer] [facility] [id number]# / / Screw Polyaxial 6.5x50mm - [id number] Implanted:Qty: 2 on 03/18/2006 at [facility] Spine HOWMEDICA [id number]# / / Erik Dixon [id number] - [id number] Implanted:Qty: 6 on 03/18/2006 at [facility] Spine HOWMEDICA 4444-2708 # / / Maria Dolores Dixon Rad 80mm 127mm Radius - [id number] Implanted:Qty: 2 on 03/18/2006 at [facility] Spine HOWMEDICA [id number]# / / Screw Polyaxial 6.5x45mm - [id number] Implanted:Qty: 3 on 05/28/2008 at [facility] Spine HOWMEDICA [id number]# / / Screw Polyaxial 7.5x45mm - [id number] Implanted:Qty: 1 on 05/28/2008 at [facility] Spine [facility] [id number]# / / Avs Pl 10x25 Implanted:Qty: 1 on 05/28/2008 at [facility] Spine [id number] / / Description:AVS PL 10X25 Avs Pl Peek Spacer [[id number]][ Implanted:Qty: 1 on 05/28/2008 at [facility] Spine [employer] [id number] / / Description:AVS PL PEEK SPAC ER Maria Dolores Dixon [id number] 80 - [id number] Implanted:Qty: 1 on 05/28/2008 at [facility] Spine HOWMEDICA 8680-1307 # / / Erik Dixon [id number] - [id number] Implanted:Qty: 9 on 05/28/2008 at [facility] Spine [facility] 2065-8431 # / / [id number] 117abone Canclls Crushed 60cc [[id number]] Implanted:Qty: 1 on 05/28/2008 at [facility] Explanted:at [facility] (Quantity not on file) Spine Musculoskeletal Transplant 08/08/2008 653132# / [id number] / Kit Infuse - [id number] Implanted:Qty: 1 on 05/28/2008 at [facility] Spine SOFAMOR DANEK 2168335# / / [id number] G Screw Polyaxial 6.5x40mm - [id number] Implanted:Qty: 1 on 05/28/2008 at [facility] Spine [facility] [id number]# / / Screw Polyaxial 6.5x45mm - [id number] Implanted:Qty: 1 on 07/10/2008 at [facility] Spine [facility] [id number]# / / Screw Polyaxial 6.5x50mm - [id number] Implanted:Qty: 3 on 07/10/2008 at [facility] Spine [employer]MEDICA 48499896# / / Maria Dolores Dixon Rad 90mm 127mm Radius - [id number] Implanted:Qty: 2 on 07/10/2008 at [facility] Spine [employer] 09333883# / / Erik Dixon [id number] - [id number] Implanted:Qty: 10 on 07/10/2008 at [facility] Spine [employer] 8686-8378 # / / Offset 6mm Neutral Implanted:Qty: 1 on 07/10/2008 at [facility] Spine [id number] / / Description:OFFSET 6MM NEUTR AL Dixon Polyaxial Illiac Screws [[id number]][ Implanted:Qty: 1 on 07/10/2008 at [facility] Explanted:at [facility] (Quantity not on file) Spine [employer] [id number] / / Description:DIXON POLYAXIAL IL LIAC SCREW Dixon Straight Maria Dolores Implanted:Qty: 2 on 07/10/2008 at [facility] Spine [id number] / / Description:DIXON STRAIGHT MARIA DOLORES [id number] Canc 90cc Crushed Freeze Dried [[id number]][[id number]] Implanted:Qty: 1 on 01/06/2011 at [facility] Explanted:at [facility] (Quantity not on file) Spine Musculoskeletal Transplant 09/22/2013 164539# / [id number] / Screw Polyaxial 6.5x45mm - [id number] Implanted:Qty: 2 on 01/06/2011 at [facility] N/A: Lumbar Vertebrae [employer]ICA 32368289# / / Erik Dixon [id number] - [id number] Implanted:Qty: 13 on 01/06/2011 at [facility] N/A: Lumbar Vertebrae [employer] 1540-4259 # / / Cnnctr Maria Dolores To Maria Dolores 0 Deg Dixon Lp Sm - [id number] Implanted:Qty: 2 on 01/06/2011 at [facility] N/A: Lumbar Vertebrae [employer] [id number]# / / Maria Dolores Dixon [id number] 80 - [id number] Implanted:Qty: 1 on 01/06/2011 at [facility] N/A: Lumbar Vertebrae HOW[employer]ICA 1120-0944 # / / Screw Set Break Off Ti - [id number] Implanted:Qty: 1 on 01/06/2011 at [facility] N/A: Lumbar Vertebrae [employer] 8810677# / / Screw Multi Axial - [id number] Implanted:Qty: 1 on 01/06/2011 at [facility] N/A: Lumbar Vertebrae [employer] 85476804# / / Kit Infuse Md - [id number] Implanted:Qty: 1 on 01/06/2011 at [facility] Spine SOF[employer]OR [employer]ANEK 07/03/2013 4973904# / / [id number] C Perimeter Lg 18mm 8 Deg Add-On - [id number] Implanted:Qty: 1 on 01/06/2011 at [facility] Spine [employer]K 03/02/2016 3357325# / / [id number] Perimeter Lg 16mm 8 Deg Add-On - [id number] Implanted:Qty: 1 on 01/06/2011 at [facility] Spine SO[employer]OR [employer]K 06/17/2018 8558184# / / [id number] 16bone 30cc Allosource Crushed Canclls [[id number]] Implanted:Qty: 1 on 07/07/2016 by Sidney Britt MD at [facility] Explanted:at [facility] (Quantity not on file) N/A: Spine Allosource 03/28/2020 [id number]# / [id number] / Screw Lmbr Post 6.5x40mm Xia3 Va - [id number] Implanted:Qty: 2 on 07/07/2016 by Sidney Britt MD at [facility] N/A: Spine Skyler Spine [id number] # / / Screw Lmbr Post 6.5x45mm Xia3 Va - [id number] Implanted:Qty: 2 on 07/07/2016 by Sidney Britt MD at [facility] N/A: Spine Bradley Spine [id number] # / / Cnnctr Lmbr Lg 0deg Dixon Ii - [id number] Implanted:Qty: 1 on 07/07/2016 by Sidney Britt MD at [facility] N/A: Spine Skyler Spine [id number]# / / Set Screw Lmbr Xia3 - [id number] Implanted:Qty: 12 on 07/07/2016 by Sidney Britt MD at [facility] N/A: Spine Skyler Spine [id number]# / / Cnnctr Maria Dolores To Maria Dolores 0 Deg Dixon Lp Sm - [id number] Implanted:Qty: 2 on 07/07/2016 by Sidney Britt MD at [facility] N/A: Spine Bradley Spine [id number]# / / Maria Dolores Lmbr 200out2 Xia3 Cvd Titnm - [id number] Implanted:Qty: 2 on 07/07/2016 by Sidney Britt MD at [facility] N/A: Spine Skyler Spine [id number]# / / [id number] 4bone Matrix 6cc Tyler Dbf Putty Dbm Implanted:Qty: 1 on 09/23/2018 by Armen Lyons MD at [facility] Explanted:at [facility] (Quantity not on file) Spine Medtronic Spine/Ortho 07/10/2020 [id number]# / [id number] / [id number] 4bone 1-4mm 30cc Medtronic Chips Canclls Freeze Dried Implanted:Qty: 1 on 09/23/2018 by Armen Lyons MD at [facility] Explanted:at [facility] (Quantity not on file) Spine Medtronic Spine/Ortho 02/21/2023 158005# / [id number] / Spacer Lmbr 6x22mm Capstone Tlif Peek - [id number] Implanted:Qty: 1 on 09/23/2018 by Armen Lyons MD at [facility] Spine Medtronic Spine/Ortho 08/28/2026 8781704# / / [id number] Set Screw Lmbr Ant 5.5mm Solera Break Off - [id number] Implanted:Qty: 2 on 09/23/2018 by Armen Lyons MD at [facility] Spine Medtronic Spine/Ortho [id number]# / / Screw Lmbr Post 6.5x45mm Solera 5.5/6 Va Cocr - [id number] Implanted:Qty: 2 on 09/23/2018 by Armen Lyons MD at [facility] Spine Medtronic Spine/Ortho [id number] 45# / / Maria Dolores Lmbr 60x5.5mm Solera 5.5/6cvd Titnm - [id number] Implanted:Qty: 1 on 09/23/2018 by Armen Lyons MD at [facility] Spine Medtronic Spine/Ortho [id number] 0# / / Maria Dolores Lmbr 70x5.5mm Solera 5.5/6cvd Titnm - [id number] Implanted:Qty: 1 on 09/23/2018 by Armen Lyons MD at [facility] Spine Medtronic Spine/Ortho [id number] 0# / / Cnnctr Lmbr 6.35x5.5mm Maria Dolores Connect Variable Titnm Hiren - [id number] Implanted:Qty: 2 on 09/23/2018 by Armen Lyons MD at [facility] Spine Medtronic Spine/Ortho [id number] # / / Set Screw Lmbr Std Maria Dolores Connection Titnm - [id number] Implanted:Qty: 4 on 09/23/2018 by Armen Lyons MD at [facility] Spine Medtronic Spine/Ortho [id number] # / / Insurance [id number] [place] [id number] [employer] MEDICARE ADVANTAGE MR [id number] [place] [id number] Advance Directives Documents on File Type Date Recorded 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
--- OUTSIDE RECORDS SUMMARY | 2024-12-22 15:12 | XMS_ITS ---
Author Organization [facility] Care Team Providers Care Electrification Adviser Name Role Phone Malinda Bonds Unavailable Unavailable Joel Chin Unavailable Unavailable Allergies and adverse reactions No Known Allergies Care Team Name Role Address Phone Organization Dates Joel Chin [place] [address], [place] (Office): [facility] 09/26/2018 - 10/12/2018 Malinda Bonds Attending Physician [place] [address], [facility] (Office): : [facility] 09/26/2018 - 10/12/2018 Immunizations Immunization Status Vaccine [...] completed tuberculin skin test; unspecified formulation lotNumber: [id number] expiry: 01/05/2021 Mfg: sanofi pasteur Given 0.1 ml Left Forearm intradermally Step 1 of Multi-step with next step required 98 CVX created date: 09/27/2018 consent date: 09/27/2018 administer ed date: 09/27/2018 TB 2 Step Mantoux Skin Test completed tuberculin skin test; unspecified formulation lotNumber: [id number] expiry: 07/27/2016 Mfg: sanofi pasteur Given 0.1 ml Left Forearm intradermally Step 2 of Multi-step with next step required 98 CVX created date: 07/27/2016 consent date: 07/27/2016 administer ed date: 07/27/2016 discharged 07/28/16 TB 2 Step Mantoux Skin Test completed tuberculin skin test; unspecified formulation lotNumber: [id number] expiry: 02/24/2018 Mfg: sanofi pasteur Given 0.1 [...] date: 07/12/2016 administer ed date: 05/31/2008 PCV13, [id number] completed created date: 07/12/2016 administer ed date: 06/30/2016 Mental Status Section Date Assessment Total Score Description 10/12/2018 BIMS 15 cognitively int act CAM 0 No delirium ind icated PHQ-9 00 10/09/2018 CAM 0 No delirium ind icated PHQ-9 05 mild depression Problems Problem # Description Date of onset Resolved Date Code CodeSystem Concern Status 1 CANDIDIASIS OF SKIN AND NAIL 09/26/[address] active 2 DIFFICULTY IN WALKING, NOT ELSEWHERE CLASSIFIED 09/26/[address] active 3 ENCOUNTER FOR OTHER SPECIFIED SURGICAL AFTERCARE 09/26/[address] active 4 SPINAL STENOSIS, LUMBAR REGION WITHOUT NEUROGENIC CLAUDICATION 09/26/[address] active 5 WEAKNESS 09/26/[address] active 6 ANXIETY DISORDER, UNSPECIFIED 07/12/2016 07/28/[address] completed 7 CONSTIPATION, UNSPECIFIED 07/12/[address] active 8 ENCOUNTER FOR OTHER SPECIFIED SURGICAL AFTERCARE 07/12/2016 07/28/[address] completed 9 ESSENTIAL (PRIMARY) HYPERTENSION 07/12/[address] active 10 INSOMNIA, UNSPECIFIED 07/12/[address] active 11 MAJOR DEPRESSIVE DISORDER, SINGLE EPISODE, UNSPECIFIED 07/12/2016 07/28/[address] completed 12 MUSCLE WEAKNESS (GENERALIZED) 07/12/2016 07/28/[address] completed 13 PERSONAL HISTORY OF NICOTINE DEPENDENCE 07/12/[address] active 14 PRESENCE OF LEFT ARTIFICIAL KNEE JOINT 07/12/[address] active 15 PRESENCE OF RIGHT ARTIFICIAL HIP JOINT 07/12/[address] active 16 SPINAL STENOSIS, LUMBAR REGION 07/12/2016 07/03/[address] completed 17 UNSTEADINESS ON FEET 07/12/2016 07/28/[address] completed Reason for Referral No Reasons for Referral Entered Social History Social History Observation Description Start Date End Date Code Code System Current Smoking Status Tobacco smoking consumption unknown 771976082 SNOMED CT Sex Assigned At Male 1940 88277-4 [facility] Vital Signs Code Code System Vitals Name Values and Units Timing Information 40610-7 [facility] Pain Level Value=0.0 10/12/2018 59001-7 [facility] Weight Fsswb=024.0 Units=Lbs 06/2019 8462-4 [facility] Blood Pressure-Diastolic Value=66 Un its=mmHg 10/11/2018 8480-6 [facility] Blood Pressure-Systolic Value=99 Uni ts=mmHg 10/11/2018 9279-1 [facility] Respiratory Rate Value=16.0 Units=/m in 10/11/2018 8310-5 [facility] Body Temperature Value=97.3 Units= F 10/11/2018 8867-4 [facility] Heart rate Value=97.0 Units=/min 06/2019 31649-4 [facility] O2 % BldC Oximetry Value=95.0 Units= % 10/11/2018 8302-2 [facility] Height Value=68.0 Units=Inches 09/26/2018
--- NOTE | 2024-12-22 15:24 | ED.WEAKNESS ---
HPI - Weakness General Time Seen by Provider: 15:24 Date Seen: 12/22/24 Chief complaint: Weakness Stated complaint: fall weakness Time Seen by Provider: 12/22/24 15:24 Source: patient Mode of arrival: ambulatory Limitations: no limitations History of Present Illness HPI Narrative: Mr. 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 Mr. Rajput states yesterday he was standing up trying to talk if sure into his sweat pants when he fell forward. He did not have loss of consciousness, vomiting, neck pain but came to the emergency room for evaluation. At that time he was bandaged up for abrasions on his forehead and the bridge of his nose. He is not currently on blood thinners and because this was a mechanical fall did not receive any other evaluation. He notes that he did have a headache last night but that is improved this morning. This morning he got up had his breakfast, was able to make himself coffee but then sat down in his chair in order to what some videos. After about an hour he attempted to get up to use the restroom and was very weak everywhere. He states he was able to stand up but started to fall but fortunately fell into the couch. He tried to stand up from the couch but was unable to do so. He describes weakness in all of his limbs. He was able to get on the floor on his knees and crawled into the kitchen. He then crawled back into the living room and was able to get himself back into his original chair. He denies numbness or tingling of the extremities that is new, chest pain shortness of breath lightheadedness visual changes. He feels much better lying down. Patient denies cough cold congestion but is presenting with a fever of 100.7 he has not had a sore throat runny nose. He does describe intermittent inability to urinate but no pain with urination. He denies abdominal pain back pain at this time. Unfortunately, as he was unable to make to the bathroom in time he did lose control of his bladder. 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 He usually were is an AFO when he is out and about but no support when he is in his home. Again, denies that this is worse than normal. Patient notes that he is a past smoker. He also had a past history of alcoholism but has been sober for a number of years. Related Data Home Medications ?Medication ?Instructions ?Recorded ?Confirmed gabapentin 300 mg capsule 600 mg PO HS 04/22/22 12/21/24 lorazepam 1 mg tablet 0.5 - 1 mg PO QPM PRN 12/11/22 12/21/24 amlodipine 10 mg tablet 10 mg PO DAILY 02/15/24 12/21/24 metoprolol succinate 25 mg 25 mg PO DAILY 02/15/24 12/21/24 tablet,extended release 24 hr mirtazapine 7.5 mg tablet 7.5 mg PO QPM 02/15/24 12/21/24 Previous Rx's ?Medication ?Instructions ?Recorded lisinopril 20 mg tablet 20 mg PO DAILY #30 tabs 12/15/22 Allergies Allergy/AdvReac Type Severity Reaction Status Date / Time No Known Drug Allergies Allergy Verified 12/21/24 10:09 Review of Systems Status of ROS: Reports: 10 or more systems reviewed and unremarkable except as noted in History and below Const: Reports: fever and fatigue Eyes: Denies: change in vision or eye discharge ENMT: Denies: throat pain, neck pain or nasal congestion Cardio: Denies: chest pain, swelling of feet/ankles, lightheadedness or shortness of breath with exertion Resp: Denies: shortness of breath, cough or wheezing GI: Denies: abdominal pain, nausea, vomiting or diarrhea : Denies: painful urination or blood in urine Musculo: Denies: back pain, neck pain or extremity pain Endo: Reports: fatigue Allergy/Immuno: Denies: wheezing [facility] Medical History Alcohol abuse ?F10.10 - Alcohol abuse, uncomplicated (ICD-10) Muscle spasms of both lower extremities ?M62.838 - Other muscle spasm (ICD-10) Insomnia ?G47.00 - Insomnia, unspecified (ICD-10) Foot drop, right ?M21.371 - Foot drop, right foot (ICD-10) Depression ?F32.A - Depression, unspecified (ICD-10) Hypertension ?I10 - Essential (primary) hypertension (ICD-10) Lumbar stenosis ?M48.061 - Spinal stenosis, lumbar region without neurogenic claudication (ICD-10) Surgical History History of arthroscopy of left knee (11/06/91) ?Z98.890 - Other specified postprocedural states (ICD-10) 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 No living children, son 2-3 years ago. Niece Aleyda Rajput in [place] or friends Woo and Joanne Webb would be medical decision makers if needed. Full code status. 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 Quit smoking in the 1980s, no ETOH use. Smoking Status: Former smoker What tobacco products do you use: cigarettes Smoking quit date/years: >15 years ago Do you use any of these nicotine containing products: None Second hand tobacco smoke exposure: No How often do you have a drink containing alcohol: never How often do you have six or more drinks on one occasion: Never AUDIT-C Alcohol total score: 0 Non-prescribed substance use: denies use service: No Exam Narrative: Exam Narrative: Alert and oriented. Very pleasant gentleman in no acute distress. He has bandages on his forehead and over the bridge of his nose both which I removed. He has a skin tear on his forehead. This is about the size of a nickel with no surrounding erythema and the wound is hemostatic. On the bridge of his nose he has a superficial abrasion. Again no surrounding erythema but it is somewhat swollen. On his left cheek he also has an abrasion. His face is otherwise symmetrical tongue is midline speech is normal mentation is normal. Neck is supple with no tenderness. No lymphadenopathy. Heart with regular rate and rhythm and lungs are clear bilaterally. Abdomen is rather large and distended but it is nontender. Lower extremities with scant peripheral edema. Patient has decreased strength especially and dorsiflexion on the right. He is able to plantar flex on the right although it is somewhat weaker than the left leg. Upper extremity strength and motor is intact. Const: Vital Signs, click to edit/add: Vital Signs - 24 hr 12/22/24 15:18 12/22/24 17:16 Temperature 100.7 F H 99.0 F Pulse Rate [Pulse Oximeter] 90 89 Respiratory Rate 20 18 Blood Pressure [Ri ght Upper Arm] 112/81 146/72 H Pulse Oximetry 95 93 Oxygen Delivery Me thod Room Air Room Air Course Course ED Course: Differential diagnosis includes but is not limited to infection such as COVID influenza or RSV, urinary tract infection, pneumonia. At this time I do not see evidence of acute stroke, acute coronary event. Must also keep in mind that he did fall yesterday and so will get a CT to rule out subdural hematoma or intraparenchymal bleed. Will give patient 500 mL normal saline while we are awaiting these results. Reevaluation(s) Reevaluation #1: Mr. Lynn noted to have a normal laboratory values including a white count hemoglobin kidney function and electrolytes. Liver function tests within normal limits. He did have a mildly elevated CRP at 1.9, urinalysis with no evidence of UTI a point of care troponin which is negative and a COVID influenza and RSV swab which was also negative. His recheck of his temperature without any antipyretics was 99. He has no respiratory symptoms, negative chest x-ray. He does note that his belly seems to be distended and he has been trying to lose weight. However, he has no belly pain and has been able to pass gas an abnormal bowel movements. Liver function tests are normal today. This time he is feeling better after fluids. We will get him up and walk him to see if he becomes symptomatic once again. Reevaluation #2: Patient was very unsteady on his feet although he was somewhat improved from his event at home. He is very worried about going home. I would agree with him. Also notes that his belly seems to be quite big he even though he has tried to lose weight. Belly is nontender. He has no right upper quadrant pain at this time. Vital Signs Vital signs: Initial Vital Signs Temperature 100.7 F H 12/22/24 15:18 Temperature Source Temporal Artery Scan 12/22/24 15:18 Pulse Rate 90 12/22/24 15:18 Respiratory Rate 20 12/22/24 15:18 Blood Pressure 112/81 12/22/24 15:18 Blood Pressure Mean 91 12/22/24 15:18 Pulse Oximetry 95 12/22/24 15:18 Oxygen Delivery Method Room Air 12/22/24 15:18 Vital Signs Temperature 100.7 F H 12/22/24 15:18 Pulse Rate 90 12/22/24 15:18 Respiratory Rate 20 12/22/24 15:18 Blood Pressure 112/81 12/22/24 15:18 Pulse Oximetry 95 12/22/24 15:18 Oxygen Delivery Method Room Air 12/22/24 15:18 Temperature 99.0 F 12/22/24 17:16 Pulse Rate 89 12/22/24 17:16 Respiratory Rate 18 12/22/24 17:16 Blood Pressure 146/72 H 12/22/24 17:16 Pulse Oximetry 93 12/22/24 17:16 Oxygen Delivery Method Room Air 12/22/24 17:16 Medications Administered Medications: Discontinued Medications Generic Name Dose Route Start Last Admin Trade Name Freq PRN Reason Stop Dose Admin Sodium Chloride 500 mls @ 500 mls/hr 12/22/24 15:41 12/22/24 17:51 0.9 % Sodium Chloride 500 Ml IV 12/22/24 16:40 Infused .Q1H ONE Infusion MDM - Weakness MDM Narrative Medical decision making narrative: 1. Weakness-this appears to be acute over the last 48 hours. Patient does have at baseline foot drop on the right leg but this seemed to be a global phenomena. Fortunately no evidence of pneumonia, UTI, elevated liver function tests, intracranial bleed. Patient is also tested negative for COVID influenza and RSV and has a reassuring x-ray. Patient seemed mildly improved with some IV fluids. Blood cultures are pending. EKG and troponin negative for acute finding. 2. Frequent fall-no evidence of significant injury. 3. Disposition -admit to the floor under the care of hospitalist Dr. Painter. I do not feel that he is safe to go home. Initially patient wanted to stay but then thought about going home because he is going to miss the history channel tonight. Upon further discussion however he does recognize that he is weak, has had 2 consecutive days of falls that we have not yet explained. Medical Records Attestation: I reviewed the patient's medical records. Lab Data Attestation: I reviewed the patient's lab results. Labs: Lab Results 12/22/24 12/22/24 12/22/24 Range/Units 15:41 16:08 16:19 WBC 6.66 (4.50-11.00) K/uL RBC 4.97 (4.30-5.90) m/uL Hgb 15.0 (13.5-17.5) gm/dL Hct 45.2 (37.0-53.0) % MCV 91 (80-100) fL MCH 30 (26-34) pg MCHC 33 (32-36) gm/dL RDW Coeff of Nikhil 13.2 (11.5-15.5) % Plt Count 160 (140-440) K/uL Neut % (Auto) 83.1 H (42.0-72.0) % Lymph % (Auto) 6.9 L (20-44) % [place] % (Auto) 7.7 (0.0-11.0) % Eos % (Auto) 1.5 (0.0-7.0) % Baso % (Auto) 0.5 (0.0-3.0) % Neut # (Auto) 5.50 (1.7-7.0) K/uL Lymph # (Auto) 0.50 L (0.90-2.90) K/uL [place] # (Auto) 0.50 (0.00-0.90) K/UL Eos # (Auto) 0.10 (0.00-0.50) K/uL Baso # (Auto) 0.03 (0.00-0.30) K/uL Abs Immat Gran (auto) 0.02 (0.00-0.30) K/uL Imm/Tot Granulo (auto) 0.3 % Sodium 139 (135-149) mmol/L Potassium 4.5 (3.6-5.1) mmol/L Chloride 112 (96-114) mmol/L Carbon Dioxide 21 (20-32) mmol/L Anion Gap 6 L (7-15) mEq/L BUN 20 (7-30) mg/dL Creatinine 0.9 (0.5-1.5) mg/dL Estimated GFR 85 ml/min Glucose 95 (60-115) mg/dL Calcium 8.7 (8.4-10.6) mg/dL Total Bilirubin 0.6 (0.1-1.5) mg/dL AST 30 (12-35) U/L ALT 28 (4-50) U/L Alkaline Phosphatase 107 (40-150) U/L C-Reactive Protein 1.9 H (0.5-1.0) mg/dL Total Protein 7.2 (6.0-8.3) g/dL Albumin 4.2 (3.3-5.0) g/dL Urine Color (Yellow) Urine Appearance (Clear) Urine pH (5.0-8.5) Ur Specific [place] (1.000-1.030) Urine Protein (Negative) Urine Glucose (UA) (Negative) Urine Ketones (Negative) Urine Blood (Negative) Urine Nitrite (Negative) Urine Bilirubin (Negative) Urine Urobilinogen (0.2-1.0) Ur Leukocyte Esterase (Negative) Urine RBC (0-2) Urine WBC (0-5) Ur Squamous Epith Cells (None-Few) Urine Bacteria (None) SARS-CoV-2 (PCR) Negative SARS-CoV-2 (Negative) Influenza Type A (PCR) Negative PCR FLU A (Negative) Influenza Type B (PCR) Negative PCR FLU B (Negative) RSV (PCR) Negative PCR RSV (Negative) POC Troponin I 0.00 L (0.01-0.04) ng/ml 12/22/24 Range/Units 17:50 WBC (4.50-11.00) K/uL RBC (4.30-5.90) m/uL Hgb (13.5-17.5) gm/dL Hct (37.0-53.0) % MCV (80-100) fL MCH (26-34) pg MCHC (32-36) gm/dL RDW Coeff of Nikhil (11.5-15.5) % Plt Count (140-440) K/uL Neut % (Auto) (42.0-72.0) % Lymph % (Auto) (20-44) % [place] % (Auto) (0.0-11.0) % Eos % (Auto) (0.0-7.0) % Baso % (Auto) (0.0-3.0) % Neut # (Auto) (1.7-7.0) K/uL Lymph # (Auto) (0.90-2.90) K/uL [place] # (Auto) (0.00-0.90) K/UL Eos # (Auto) (0.00-0.50) K/uL Baso # (Auto) (0.00-0.30) K/uL Abs Immat Gran (auto) (0.00-0.30) K/uL Imm/Tot Granulo (auto) % Sodium (135-149) mmol/L Potassium (3.6-5.1) mmol/L Chloride (96-114) mmol/L Carbon Dioxide (20-32) mmol/L Anion Gap (7-15) mEq/L BUN (7-30) mg/dL Creatinine (0.5-1.5) mg/dL Estimated GFR ml/min Glucose (60-115) mg/dL Calcium (8.4-10.6) mg/dL Total Bilirubin (0.1-1.5) mg/dL AST (12-35) U/L ALT (4-50) U/L Alkaline Phosphatase (40-150) U/L C-Reactive Protein (0.5-1.0) mg/dL Total Protein (6.0-8.3) g/dL Albumin (3.3-5.0) g/dL Urine Color Yellow (Yellow) Urine Appearance Clear (Clear) Urine pH 6.0 (5.0-8.5) Ur Specific [place] 1.025 (1.000-1.030) Urine Protein 2+ A (Negative) Urine Glucose (UA) Negative (Negative) Urine Ketones Negative (Negative) Urine Blood Negative (Negative) Urine Nitrite Negative (Negative) Urine Bilirubin Negative (Negative) Urine Urobilinogen 0.2 (0.2-1.0) Ur Leukocyte Esterase Negative (Negative) Urine RBC 0-2 (0-2) Urine WBC 0-2 (0-5) Ur Squamous Epith Cells None (None-Few) Urine Bacteria None (None) SARS-CoV-2 (PCR) (Negative) Influenza Type A (PCR) (Negative) Influenza Type B (PCR) (Negative) RSV (PCR) (Negative) POC Troponin I (0.01-0.04) ng/ml Imaging Data CT scan - head: Attestation: I have reviewed the pertinent imaging results. Radiologist's impression: Left frontal scalp edema/hematoma. Calvarium appears grossly intact. No acute intracranial hemorrhage or abnormal extra-axial fluid collection identified. No midline shift or mass effect, hydrocephalus herniation. Preserved souza-white matter differentiation. Mild generalized cerebral volume loss and mild chronic microangiopathy changes. Calcific intracranial atherosclerotic plaquing. Unremarkable midline structures. Clear mastoid air cells. Partially visualized left cervical laminoplasty changes. Facial structures are detailed in separate report. IMPRESSION: 1. Left frontal scalp edema/shallow hematoma. 2. No skull fracture or acute intracranial hemorrhage identified. Chest x-ray: Attestation: I have reviewed the pertinent imaging results. Radiologist's impression: Cardiovasculature and mediastinum: Heart size is normal. Unremarkable mediastinum. Lungs and pleural spaces: Lungs are clear. No sign of infiltrate or mass. No sign of pleural effusion. No pneumothorax. Bones and soft tissues: No significant findings. IMPRESSION: Negative chest. No sign of pneumonia or other acute abnormality. Facial CT: Attestation: I have reviewed the pertinent imaging results. My impression: No obvious fractures Radiologist's impression: eft frontal scalp edema/minimal hematoma. Facial bones appear grossly intact. The bony orbits and their contents appear atraumatic. Incidental bilateral lens implants. No radiopaque foreign body or abnormal soft tissue emphysema. Small mucous retention cysts along the inferior maxillary sinuses. Sinonasal cavities are otherwise clear. Slight sinusoidal nasal septal deviation. The temporomandibular joints appear within normal limits. Included views of the cervical spine demonstrate focal kyphosis at C4-5, with grade 1 anterolisthesis at C3-4 and C4-5, grade 1 retrolisthesis at C6-7, grade 1 anterolisthesis at C7-T1. 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 Impression: 1. Left frontal scalp edema/trace hematoma. 2. No acute facial bone fracture identified. 3. Remote postoperative changes in the cervical spine. ECG Data Attestation: I personally reviewed and interpreted this ECG as follows: ECG interpretation date: 12/22/24 Interpretation: EKG by my read shows sinus rhythm at a rate of 82. Isolated Q-wave noted in 3. I do not note any acute ST or T-wave changes. QT and [place] intervals within normal limits. Discharge Plan Discharge Clinical Impression: Weakness, Falls frequently Patient Disposition: Admitted As Observation Condition: Improved
--- NOTE | 2024-12-22 15:41 | CRLHL7_ITS ---
For Patients: As a result of the Century Cures Act, medical imaging exams and procedure reports are released immediately into your electronic medical record. You may view this report before your referring provider. If you have questions, please contact your health care provider. Indication: Fall, fever, weakness Technique: Helical axial sections were obtained through the facial skeleton, mandible and adjacent structures without intravenous contrast material. Data was reformatted not only in axial but also coronal planes. Comparison: Same-day CT head Findings: Left frontal scalp edema/minimal hematoma. Facial bones appear grossly intact. The bony orbits and their contents appear atraumatic. Incidental bilateral lens implants. No radiopaque foreign body or abnormal soft tissue emphysema. Small mucous retention cysts along the inferior maxillary sinuses. Sinonasal cavities are otherwise clear. Slight sinusoidal nasal septal deviation. The temporomandibular joints appear within normal limits. Included views of the cervical spine demonstrate focal kyphosis at C4-5, with grade 1 anterolisthesis at C3-4 and C4-5, grade 1 retrolisthesis at C6-7, grade 1 anterolisthesis at C7-T1. 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 Impression: 1. Left frontal scalp edema/trace hematoma. 2. No acute facial bone fracture identified. 3. Remote postoperative changes in the cervical spine. Please note that all CT scans at this facility use dose modulation, iterative reconstruction, and/or weight-based dosing when appropriate to reduce radiation dose to as low as reasonably achievable. Dictated by Laura Hicks MD @ 12/22/2024 4:20:50 PM (Electronically Signed)
--- NOTE | 2024-12-22 15:41 | CRLHL7_ITS ---
For Patients: As a result of the Century Cures Act, medical imaging exams and procedure reports are released immediately into your electronic medical record. You may view this report before your referring provider. If you have questions, please contact your health care provider. INDICATION: Fall, fever, weakness TECHNIQUE: Noncontrast axial CT of the head. Coronal and sagittal reformats. Bone and soft tissue algorithms. COMPARISON: CT head 03/18/2023 FINDINGS: Left frontal scalp edema/hematoma. Calvarium appears grossly intact. No acute intracranial hemorrhage or abnormal extra-axial fluid collection identified. No midline shift or mass effect, hydrocephalus herniation. Preserved souza-white matter differentiation. Mild generalized cerebral volume loss and mild chronic microangiopathy changes. Calcific intracranial atherosclerotic plaquing. Unremarkable midline structures. Clear mastoid air cells. Partially visualized left cervical laminoplasty changes. Facial structures are detailed in separate report. IMPRESSION: 1. Left frontal scalp edema/shallow hematoma. 2. No skull fracture or acute intracranial hemorrhage identified. Please note that all CT scans at this facility use dose modulation, iterative reconstruction, and/or weight-based dosing when appropriate to reduce radiation dose to as low as reasonably achievable. Dictated by Laura Hicks MD @ 12/22/2024 4:16:41 PM (Electronically Signed)
--- NOTE | 2024-12-22 15:42 | CRLHL7_ITS ---
For Patients: As a result of the Cures Act, medical imaging exams and procedure reports are released immediately into your electronic medical record. You may view this report before your referring provider. If you have questions, please contact your health care provider. INDICATION: Fever fall and weakness. TECHNIQUE: Chest 1 views. COMPARISON: 12/11/2022. FINDINGS: Cardiovasculature and mediastinum: Heart size is normal. Unremarkable mediastinum. Lungs and pleural spaces: Lungs are clear. No sign of infiltrate or mass. No sign of pleural effusion. No pneumothorax. Bones and soft tissues: No significant findings. IMPRESSION: Negative chest. No sign of pneumonia or other acute abnormality. Dictated by Lavelle Mccabe MD @ 12/22/2024 4:36:30 PM (Electronically Signed)
--- OUTSIDE RECORDS SUMMARY | 2024-12-22 15:47 | XMS_ITS ---
Author Organization [facility] [place] Care Team Providers Care Account Services Specialist Name Role Phone Malinda Bonds Unavailable Unavailable Joel Chin Unavailable Unavailable Allergies and adverse reactions No Known Allergies Care Team Name Role Address Phone Organization Dates Joel Chin [place] [address], [place] (Office): [facility] 09/26/2018 - 10/12/2018 Malinda Bonds Attending Physician [place] [address], [facility] (Office): : [facility] 09/26/2018 - 10/12/2018 Immunizations Immunization Status [...] completed tuberculin skin test; unspecified formulation lotNumber: [id number] expiry: 01/05/2021 Mfg: sanofi pasteur Given 0.1 ml Left Forearm intradermally Step 1 of Multi-step with next step required 98 CVX created date: 09/27/2018 consent date: 09/27/2018 administer ed date: 09/27/2018 TB 2 Step Mantoux Skin Test completed tuberculin skin test; unspecified formulation lotNumber: [id number] expiry: 07/27/2016 Mfg: sanofi pasteur Given 0.1 ml Left Forearm intradermally Step 2 of Multi-step with next step required 98 CVX created date: 07/27/2016 consent date: 07/27/2016 administer ed date: 07/27/2016 discharged 07/28/16 TB 2 Step Mantoux Skin Test completed tuberculin skin test; unspecified formulation lotNumber: [id number] expiry: 02/24/2018 Mfg: sanofi pasteur Given 0.1 [...] date: 07/12/2016 administer ed date: 05/31/2008 PCV13, [id number] completed created date: 07/12/2016 administer ed date: 06/30/2016 Mental Status Section Date Assessment Total Score Description 10/12/2018 BIMS 15 cognitively int act CAM 0 No delirium ind icated PHQ-9 00 10/09/2018 CAM 0 No delirium ind icated PHQ-9 05 mild depression Problems Problem # Description Date of onset Resolved Date Code CodeSystem Concern Status 1 CANDIDIASIS OF SKIN AND NAIL 09/26/[address] active 2 DIFFICULTY IN WALKING, NOT ELSEWHERE CLASSIFIED 09/26/[address] active 3 ENCOUNTER FOR OTHER SPECIFIED SURGICAL AFTERCARE 09/26/[address] active 4 SPINAL STENOSIS, LUMBAR REGION WITHOUT NEUROGENIC CLAUDICATION 09/26/[address] active 5 WEAKNESS 09/26/[address] active 6 ANXIETY DISORDER, UNSPECIFIED 07/12/2016 07/28/[address] completed 7 CONSTIPATION, UNSPECIFIED 07/12/[address] active 8 ENCOUNTER FOR OTHER SPECIFIED SURGICAL AFTERCARE 07/12/2016 07/28/[address] completed 9 ESSENTIAL (PRIMARY) HYPERTENSION 07/12/[address] active 10 INSOMNIA, UNSPECIFIED 07/12/[address] active 11 MAJOR DEPRESSIVE DISORDER, SINGLE EPISODE, UNSPECIFIED 07/12/2016 07/28/[address] completed 12 MUSCLE WEAKNESS (GENERALIZED) 07/12/2016 07/28/[address] completed 13 PERSONAL HISTORY OF NICOTINE DEPENDENCE 07/12/[address] active 14 PRESENCE OF LEFT ARTIFICIAL KNEE JOINT 07/12/[address] active 15 PRESENCE OF RIGHT ARTIFICIAL HIP JOINT 07/12/[address] active 16 SPINAL STENOSIS, LUMBAR REGION 07/12/2016 07/03/[address] completed 17 UNSTEADINESS ON FEET 07/12/2016 07/28/[address] completed Reason for Referral No Reasons for Referral Entered Social History Social History Observation Description Start Date End Date Code Code System Current Smoking Status Tobacco smoking consumption unknown 368117466 SNOMED CT Sex Assigned At Male 1940 34059-0 [facility] Vital Signs Code Code System Vitals Name Values and Units Timing Information 32445-9 [facility] Pain Level Value=0.0 10/12/2018 60478-0 [facility] Weight Ywnhl=915.0 Units=Lbs 06/2019 8462-4 [facility] Blood Pressure-Diastolic Value=66 Un its=mmHg 10/11/2018 8480-6 [facility] Blood Pressure-Systolic Value=99 Uni ts=mmHg 10/11/2018 9279-1 [facility] Respiratory Rate Value=16.0 Units=/m in 10/11/2018 8310-5 [facility] Body Temperature Value=97.3 Units= F 10/11/2018 8867-4 [facility] Heart rate Value=97.0 Units=/min 06/2019 42161-1 [facility] O2 % BldC Oximetry Value=95.0 Units= % 10/11/2018 8302-2 [facility] Height Value=68.0 Units=Inches 09/26/2018
--- OUTSIDE RECORDS SUMMARY | 2024-12-22 15:47 | XMS_ITS | Clinical Summary ---
Author Organization [facility] Address [address] [place] [address] Care Team Providers Care Sprinkler Fitter Apprentice Name Role Phone Robbie Maldonado MD Primary [...] with meals. 100 tablet 04/03/20 19 Active Hygoo-0-TFH-EP A-Fish Oil 1,000 mg (120 mg-180 mg) [...] bed. Length of need 99 months. Bed carpenter cradle and dolly:nodxM51 .04,A98.1,M54.6 1 unit 09/09/20 20 Active traMADoL [...] history of tobacco use, presenting hazards to [facility] 1983 11/14/2006 07/02/2016 Encounters Date Type Department Care Team Description 12/21/2024 Telephone [facility] [address] [place] [address] Robbie Maldonado MD Appointment Request (approval request for 12/21 @ 1:40 pm ) 12/21/2024 Nurse Triage [facility] [address] [place] [address] Robbie Maldonado MD Head Injury 12/21/2024 Nurse Triage [address] [address] Robbie Maldonado MD Error-please disregard 12/07/[address] [address] Robbie Maldonado MD Refill Request (Mirtazapine) 12/07/2024 Refill [facility] [address] [place] [address] Robbie Maldonado MD Refill Request (Lorazepam) 12/07/2024 Refill [facility] [address] [place] [address] Robbie Maldonado MD Refill Request (Metoprolol Succinate, Gabapentin) 10/08/[address] [address] Robbie Maldonado MD Refill Request (Amlodipine) from Last 3 Months Immunizations Immunization Administration Dates Next Due AMB INFLUENZA IIV3 (AGE 65+ YRS) PF (Flu Clinic Only) 08/23/2019,07/22/2018 COVID-19 vaccine (Sevo Nutraceuticals-Bio NTech 30mcg/0.3mL) 12YO+ BIVALENT PF, MDV 02/08/2023,06/17/2022 COVID-19 vaccine (Pfizer-Bio NTech 30mcg/0.3mL) 12YO+ MATTHEW-SUCROSE PF, MDV 01/13/2022 COVID-19 vaccine (truedash NTInstart Logic 30mcg/0.3mL) PF, MDV 07/02/2021,12/09/2020,11/18/2020 Hepatitis B (Adult) [...] PM CDT Legal Sex Male 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 Gender Identity Male 04/13/2021 11:12 AM CDT [...] (206 lb 6.4 oz) 11/28/2023 10:53 AM PAPER BAG MACHINE OPERATOR Height 168.4 cm (5' 6.3) 06/20/2023 2:30 [...] 06/30/2016, 05/31/2008 Medical Devices Implanted Type Area Senior Medical Director Device Identifier Shelf Expiration Date Model / Serial / Lot Chips Canclls 1.0-9.5mm 30cc Aseptic Freeze Dried Strl - [id number] Implanted:Qty: 1 on 03/18/2006 at [facility] Explanted:at [facility] (Quantity not on file) Bone Implants Spine Allosource 01/08/2011 [id number]# / [id number] / [id number] Chips Canclls 1.0-9.5mm 30cc Aseptic Freeze Dried Strl - [id number] Implanted:Qty: 1 on 03/18/2006 at [facility] Explanted:at [facility] (Quantity not on file) Bone Implants Spine Allosource 01/22/2011 [id number]# / [id number] / [id number] Screw Polyaxial 6.5x45mm - [id number] Implanted:Qty: 4 on 03/18/2006 at [facility]ine [facility] 25506788# / / Screw Polyaxial 6.5x50mm - [id number] Implanted:Qty: 2 on 03/18/2006 at [facility] Spine HOWMEDICA 42652730# / / Erik Dixon [id number] - [id number] Implanted:Qty: 6 on 03/18/2006 at [facility] Spine HOWMEDICA 1304-9777 # / / Maria Dolores Dixon Rad 80mm 127mm Radius - [id number] Implanted:Qty: 2 on 03/18/2006 at [facility] Spine HOWMEDICA 99064755# / / Screw Polyaxial 6.5x45mm - [id number] Implanted:Qty: 3 on 05/28/2008 at [facility] Spine HOWMEDICA 53349702# / / Screw Polyaxial 7.5x45mm - [id number] Implanted:Qty: 1 on 05/28/2008 at [facility] 89300370# / / Avs Pl 10x25 Implanted:Qty: 1 on 05/28/2008 at [facility] Spine [id number] / / Description:AVS PL 10X25 Avs Pl Peek Spacer [[id number]][ Implanted:Qty: 1 on 05/28/2008 at [facility] Spine Skyler DICOM Grid [id number] / / Description:AVS PL PEEK SPAC ER Maria Dolores Dixon [id number] - [id number] Implanted:Qty: 1 on 05/28/2008 at [facility] Spine HOWMEDICA 8309-8454 # / / Erik Dixon [id number] - [id number] Implanted:Qty: 9 on 05/28/2008 at [facility] 8763-0348 # / / [id number] 117abone Canclls Crushed 60cc [[id number]] Implanted:Qty: 1 on 05/28/2008 at [facility] Explanted:at [facility] (Quantity not on file) Spine Musculoskeletal Transplant 08/08/2008 266415# / [id number] / Kit Infuse - [id number] Implanted:Qty: 1 on 05/28/2008 at [facility] Spine SOFAMOR DANEK 8007085# / / [id number] G Screw Polyaxial 6.5x40mm - [id number] Implanted:Qty: 1 on 05/28/2008 at [facility] 89075762# / / Screw Polyaxial 6.5x45mm - [id number] Implanted:Qty: 1 on 07/10/2008 at [facility] 28121086# / / Screw Polyaxial 6.5x50mm - [id number] Implanted:Qty: 3 on 07/10/2008 at [facility] Spine HOWMEDICA 22742944# / / Maria Dolores Dixon Rad 90mm 127mm Radius - [id number] Implanted:Qty: 2 on 07/10/2008 at [facility] Spine HOW[employer]ICA 24426806# / / Erik Dixon [id number] - [id number] Implanted:Qty: 10 on 07/10/2008 at [facility] Spine HOW[employer]ICA 4362-7292 # / / Offset 6mm Neutral Implanted:Qty: 1 on 07/10/2008 at [facility] Spine [id number] / / Description:OFFSET 6MM NEUTR AL Dixon Polyaxial Illiac Screws [[id number]][ Implanted:Qty: 1 on 07/10/2008 at [facility] Explanted:at [facility] (Quantity not on file) Spine [employer] [id number] / / Description:DIXON POLYAXIAL IL LIAC SCREW Dixon Straight Maria Dolores Implanted:Qty: 2 on 07/10/2008 at [facility] Spine [id number] / / Description:DIXON STRAIGHT MARIA DOLORES [id number] Canc 90cc Crushed Freeze Dried [[id number]][[id number]] Implanted:Qty: 1 on 01/06/2011 at [facility] Explanted:at [facility] (Quantity not on file) Spine Musculoskeletal Transplant 09/22/2013 103794# / [id number] / Screw Polyaxial 6.5x45mm - [id number] Implanted:Qty: 2 on 01/06/2011 at [facility] N/A: Lumbar Vertebrae [employer]ICA 94092502# / / Erik Dixon [id number] - [id number] Implanted:Qty: 13 on 01/06/2011 at [facility] N/A: Lumbar Vertebrae HOWMEDICA 8169-2439 # / / Cnnctr Maria Dolores To Maria Dolores 0 Deg Dixon Lp Sm - [id number] Implanted:Qty: 2 on 01/06/2011 at [facility] N/A: Lumbar Vertebrae [employer]ICA 62877713# / / Maria Dolores Dixon [id number] - [id number] Implanted:Qty: 1 on 01/06/2011 at [facility] N/A: Lumbar Vertebrae HOW[employer]ICA 9769-8903 # / / Screw Set Break Off Ti - [id number] Implanted:Qty: 1 on 01/06/2011 at [facility] N/A: Lumbar Vertebrae SOFAMOR DANEK 0006231# / / Screw Multi Axial - [id number] Implanted:Qty: 1 on 01/06/2011 at [facility] N/A: Lumbar Vertebrae SOFAMOR DANEK 79878858# / / Kit Infuse Md - [id number] Implanted:Qty: 1 on 01/06/2011 at [facility] Spine SOFAMOR DANEK 07/03/2013 5031276# / / [id number] C Perimeter Lg 18mm 8 Deg Add-On - [id number] Implanted:Qty: 1 on 01/06/2011 at [facility] Spine SOFAMOR DANEK 03/02/2016 0776288# / / [id number] Perimeter Lg 16mm 8 Deg Add-On - [id number] Implanted:Qty: 1 on 01/06/2011 at [facility] Spine SOFAMOR DANEK 06/17/2018 5943822# / / [id number] 16bone 30cc Allosource Crushed Canclls [[id number]] Implanted:Qty: 1 on 07/07/2016 by Sidney Britt MD at [facility] Explanted:at [facility] (Quantity not on file) N/A: Spine Allosource 03/28/2020 [id number]# / [id number] / Screw Lmbr Post 6.5x40mm Xia3 Va - [id number] Implanted:Qty: 2 on 07/07/2016 by Sidney Britt MD at [facility] N/A: Spine Skyler Spine [id number] # / / Screw Lmbr Post 6.5x45mm Xia3 Va - [id number] Implanted:Qty: 2 on 07/07/2016 by Sidney Britt MD at [facility] N/A: Spine Mcdermitt Spine [id number] # / / Cnnctr Lmbr Lg 0deg Dixon Ii - [id number] Implanted:Qty: 1 on 07/07/2016 by Sidney Britt MD at [facility] N/A: Spine Skyler Spine [id number]# / / Set Screw Lmbr Xia3 - [id number] Implanted:Qty: 12 on 07/07/2016 by Sidney Britt MD at [facility] N/A: Spine Skyler Spine 08424142# / / Cnnctr Maria Dolores To Maria Dolores 0 Deg Dixon Lp Sm - [id number] Implanted:Qty: 2 on 07/07/2016 by Sidney Britt MD at [facility] N/A: Spine Mcdermitt Spine 79855721# / / Maria Dolores Lmbr [id number] Xia3 Cvd Titnm - [id number] Implanted:Qty: 2 on 07/07/2016 by Sidney Britt MD at [facility] N/A: Spine Skyler Spine 45011956# / / [id number] 4bone Matrix 6cc Tyler Dbf Putty Dbm Implanted:Qty: 1 on 09/23/2018 by Armen Lyons MD at [facility] Explanted:at [facility] (Quantity not on file) Spine Medtronic Spine/Ortho 07/10/2020 [id number]# / [id number] / [id number] 4bone 1-4mm 30cc Medtronic Chips Canclls Freeze Dried Implanted:Qty: 1 on 09/23/2018 by Armen Lyons MD at [facility] Explanted:at [facility] (Quantity not on file) Spine Medtronic Spine/Ortho 02/21/2023 758473# / [id number] 4 / Spacer Lmbr 6x22mm Capstone Tlif Peek - [id number] Implanted:Qty: 1 on 09/23/2018 by Armen Lyons MD at [facility] Spine Medtronic Spine/Ortho 08/28/2026 8455404# / / [id number] Set Screw Lmbr Ant 5.5mm Solera Break Off - [id number] Implanted:Qty: 2 on 09/23/2018 by Armen Lyons MD at [facility] Spine Medtronic Spine/Ortho 9982788# / / Screw Lmbr Post 6.5x45mm Solera 5.5/6 Va Cocr - [id number] Implanted:Qty: 2 on 09/23/2018 by Armen Lyons MD at [facility] Spine Medtronic Spine/Ortho [id number] 45# / / Maria Dolores Lmbr 60x5.5mm Solera 5.5/6cvd Titnm - [id number] Implanted:Qty: 1 on 09/23/2018 by Armen Lyons MD at [facility] Spine Medtronic Spine/Ortho [id number] 0# / / Maria Dolores Lmbr 70x5.5mm Solera 5.5/6cvd Titnm - [id number] Implanted:Qty: 1 on 09/23/2018 by Armen Lyons MD at [facility] Spine Medtronic Spine/Ortho [id number] 0# / / Cnnctr Lmbr 6.35x5.5mm Maria Dolores Connect Variable Titnm Hiren - [id number] Implanted:Qty: 2 on 09/23/2018 by Armen Lyons MD at [facility] Spine Medtronic Spine/Ortho [id number] # / / Set Screw Lmbr Std Maria Dolores Connection Titnm - [id number] Implanted:Qty: 4 on 09/23/2018 by Armen Lyons MD at [facility] Spine Medtronic Spine/Ortho [id number] # / / Insurance [id number] [place] [address] [employer] MEDICARE ADVANTAGE [id number] [place] [id number] Advance Directives Documents on File Type Date Recorded Patient Quality Intern Expl anation Healthcare Directive 01/08/2011 * Full [...] 4:53 PM 01/11/2011 10:48 AM Care Teams Sprinkler Fitter Apprentice Relationship Specialty Start Date End Date Robbie Maldonado MD [address] [place] [address] PCP - General Family Practice 04/22/21
--- OUTSIDE RECORDS SUMMARY | 2024-12-22 15:47 | XMS_ITS | Continuity of Care Document ---
Author Organization [facility] Address [address] [place] [address] Phone Care Team Providers Care Employment Program Representative Name Role Phone Sebastián West Unavailable Unavailable Allergies, Adverse Reactions, Alerts Substance Reaction Status Criticality No Known Allergies Active No Inform ation Medications Medication Instructions Dosage Effective Dates (start - stop) Status Comments ACETAMINOPHEN (unknown strength) Not Available - Active GABAPENTIN (unknown strength) Not Available - Active MAGNESIUM CITRATE (unknown strength) Not Available - Active OMEGA-3 (unknown strength) Not Available - Active SENNOSIDES-DOCUSATE SODIUM (unknown strength) Not Available - Active TRAMADOL HCL (unknown strength) Not Available - Active B COMPLEX (unknown strength) Not Available - Active TYLENOL [...] Office/Outpa tient Visit,Est, Mod [facility], [address] [facility], [place], [place], [id number], tel:[phone] [facility] [place] Pain in thoracic spine Sep-0 1- 2 Panvica Sebastián. [facility], [address] [place] [address], [address], [id number] , [place]. tel:[phone] Referring Provider: King Woodson, [facility] [employer] [facility] [address] [facility], [place], [address]. tel:[phone] Office/Outpa tient Visit,Est, Mod [facility], [address] [facility], [place], [place], [id number], [place] tel:[phone] [facility] [place] Pain in thoracic spine 1 Panvica Sebastián. [facility], [address] [place] [address], [address], [place], [place], [id number] , [place]. tel:[phone] Referring Provider: King Woodson, [facility] [address] [facility], [place], [address]. tel:[phone] Office/Outpa tient Visit,Est, Mod [facility], [address] [place] [address], [id number], [place] tel:[phone] [facility] [place] Pain in thoracic spine Nov-0 0 Panvica Sebastián. [facility], [address] [place] [address], [address], [place], [place], [id number] , [place]. tel:[phone] Referring Provider: King Woodson, [address], [place], [address]. tel:[phone] Office/Outpa tient Visit,Est, Mod [facility], [address] [place] [address], [id number], [place] tel:[phone] [facility] Encounter for follow-up examination after completed treatment for conditions other than malignant neoplasm 9 Panvica Sebastián. [facility], [address] [place] [address], [address], [place], [place], [id number] , [place]. [phone] Referring Provider: King Woodson, [facility] [address], [place], [address]. tel:[phone] Office/Outpa tient Visit,Est, Mod [facility], [address] [place] [address], [id number], [place] tel:[phone] [facility] Encounter for follow-up examination after completed treatment for conditions other than malignant neoplasm 9 Panvica Sebastián. [facility], [address] [place] [address], [address], [place], [place], [id number] , [place]. [phone] Referring Provider: King Woodson, [address], [place], [address]. tel:[phone] Office/Outpa tient Visit,Est, Mod [facility], [address], [place], [place], [id number], [place] tel:[phone] [facility] Encounter for follow-up examination after completed treatment for conditions other than malignant neoplasm 9 Panvica Sebastián. [facility], [address] [place] [address], [address], [place], [place], [id number] , . tel:[phone] Referring Provider: King Woodson, [facility] [address], [place], [address]. tel:[phone] [facility], [address] [place] [address], [id number], [place] tel:[phone] [facility] [place] Arthrodesis status 9 Lyons Armen. [facility], [address] [place] [address], [id number] , . [phone] Referring Provider: King Woodson, [employer] [address] [facility], [place], [address]. [phone] [facility], [address] [place] [address], [id number], [place] tel:[phone] [facility] No Information 8 Lyons Armen. [facility], [address] [place] [address], [place], [id number] , [place]. tel:[phone] Referring Provider: King Woodson, [employer] [facility], [place], [address]. tel:[phone] Office/Outpa tient Visit,Est, Mod [facility], [address] [place] [address], [id number], [place] tel:[phone] [facility] [place] Spinal stenosis, lumbar region 7 David Palafox. [address] [place] [address], [place], [id number] , [place]. tel:[phone] Referring Provider: King Woodson [employer] [address] [facility], [place], [address]. tel:[phone] [facility], [address] [place] [address], [id number], [place] tel:[phone] [facility] [place] Spinal stenosis, lumbar regionOther intervertebra l disc displacement, lumbar region 6 Mehbod Amir. [facility], [address] [place] [address], [id number] , [place]. [phone] Referring Provider: King Woodson [employer] [address] [facility], [place], [address]. tel:[phone] [facility], [address], [place], [place], [id number], [place] [phone] [facility] No Information 6 Mehbod Amir. [facility], [address] [place] [address] [address], [place], [place], [id number] , [place]. [phone] Referring Provider: King Woodson, [facility] [address] , [place], [address]. tel:[phone] Office/Outpa tient Visit,New, Mod [facility], [address], [place], [place], [id number], [place] [phone] [facility] [place] Spinal stenosis, lumbar regionOther intervertebra l disc displacement, lumbar region 6 Mehbod Amir. [facility], [address], [place], [place], [address] , [place]. tel:[phone] Referring Provider: King Woodson, [facility] [address], [place], [address]. tel:[phone] Office/Outpa tient Visit,Est, Mod Z [facility], [address] [place] [address], [place], [address], [place] tel:[phone] [facility] [place] No Information 3 Ha Fortune. [facility], [address] [facility], [place], [address], [place]. [phone] Referring Provider: Jalil Mart, [facility] [address] [facility], [place], [address]. tel:[phone] Z [facility], [address] [place], [place] [address], [place], [address], [place] [phone] [facility] No Information 3 David Palafox. [address], [place], [place], [id number] , [place]. [phone] Office/Outpa tient Visit,Est, Low Z [facility], [address], [place], [address], [place] tel:[phone] [employer] No Information 2 Mehbod Amir. [facility], [address] [place] [address] [address], [place], [place], [address] , [place]. tel:[phone] Referring Provider: Jalil Mart, [facility] [address] [facility], [place], [address]. tel:[phone] Z [facility], [address] [place] [address] 600, [place], [address], [place] tel:[phone] [facility] 0 2 [address] Javy. [address] [place] [address] 600, [place], [id number] , [place]. tel: [phone] Office/Outpa tient Visit,Est, Mod Z [facility], [address] [place] [address] 600, [place], [address], [place] tel:[phone] [employer] No Information 2 Mehbod Amir. [facility], [address] [place] [address] 600, [place], [id number] , [place]. tel: [phone] Referring Provider: Jalil Mart, [facility] [address] [facility], [place], [address]. [phone] Office/Outpa tient Visit,Est, Mod Z [facility], [address] [place], [place] [address]ite [address], [place], [address], [place] tel:[phone] [facility] [employer] No Information 2 Mehbod Amir. [facility], [address] [place] [address] [address], [place], [id number] , [place]. tel:[phone] Referring Provider: Jalil Mart, [facility] [address] [facility], [place], [address]. tel:[phone] Office/outpa tient visit,est, low Z [facility], [address] [place], [place] [address]ite [address], [place], [address], [place] [phone] [email or web address] No Information 1 Mehbod Amir. [facility], [address], [place], [id number] , . [phone] Referring Provider: Jalil Mart, [facility] [address] [facility], [place], [address]. [phone] Z [facility], [address] [place] [address], [facility], tel:[phone] [employer] No Information 1 Mehbod Amir. [facility], [address] [place] [address] [address], [place], [id number] , [place]. [phone] Referring Provider: Jalil Mart, [facility] [address] [place] [address], [address]. [phone] [facility], [address], [address], [place] tel:[phone] [employer] No Information 1 Mehbod Amir. [facility], [address], [id number] , [place]. [phone] Referring Provider: Jalil Mart, [facility] [address] [place] [address], [address]. [phone] Z [facility], [address] [place] [address], [address], [place] tel:[phone] [facility] No Information 1 Mehbod Amir. [facility], [address], [place], [id number] , [place]. [phone] Referring Provider: Jalil Mart, [facility] [address] [place], [address]. tel:[phone] Office/outpa tient visit,est, low Z [facility], [address], [place], [address], [place] [phone] [email or web address] No Information Dec-0 9-201 1 Mehbod Amir. [facility], [address], [place], [place], [address] , [place]. tel:[phone] Referring Provider: Jalil Mart, [facility] [address] [facility], [place], [address]. tel:[phone] Office/outpa tient visit,est, low Z [facility], [address] [facility] [address], [place], [address], [place] tel:[phone] [email or web address] No Information 4-201 1 Mehbod Amir. [facility], [address], [place], [place], [address] , [place]. tel:[phone] Referring Provider: Jalil Mart, [facility] [address] [place], [address]. tel:[phone] Office/outpa tient visit,est, low Z [facility], [address] [place], [place] [address], [place], [address], [place] tel:[phone] [email or web address] No Information 0 1-201 0 Mehbod Amir. [facility], [address], [place], [address] , [place]. tel:[phone] Referring Provider: Jalil Mart, [facility] [address] [place], [address]. tel:[phone] Office/outpa tient visit,est, low Z [facility], [address], [place], [address], [place] [phone] [email or web address] No Information Jul-0 5-200 9 Mehbod Amir. [facility], [address] [place] [address] [address], [place], [place], [address] , [place]. [phone] Referring Provider: Jalil Mart, [facility] [address] [facility], [place], [address]. tel:[phone] Office/outpa tient visit,est, low Z [facility], [address] [place], [place] [address]ite [address], [place], [address], [place] tel:[phone] [email or web address] No Information Sukh-0 1-200 9 Mehbod Amir. [facility], [address], [place], [place], [address] , [place]. tel:[phone] Referring Provider: Jalil Mart, [facility] [address] [facility], [place], [address]. tel:[phone] Office/outpa tient visit,est, low Z [facility], [address] [place], [place] [address]ite [address], [place], [address], [place] tel:[phone] [email or web address] No Information Dec-3 0-200 9 Mehbod Amir. [facility], [address], [place], [place], [address] , [place]. tel:[phone] Referring Provider: Jalil Mart, [facility] [address] [facility], [place], [address]. tel:[phone] Office/outpa tient visit,est, mod Z [facility], [address] [place], [place] [address]ite [facility], [place], [address], [place] tel:[phone] [email or web address] No Information 2-200 9 Mehbod Amir. [facility], [address] [place] [address] [address], [place], [place], [address] , [place]. tel:[phone] Referring Provider: Jalil Mart, [facility] [address] [facility], [place], [address]. tel:[phone] Z [facility], [address] [place], [place] [address]ite [facility], [place], [address], [place] tel:[phone] [email or web address] No Information 5-200 8 Mehbod Amir. [facility], [address], [place], [place], [address] , [place]. [phone] Referring Provider: Jalil Mart, [facility] [address] [place] [address], [place], [address]. [phone] Z [facility], [address], [place], [address], [place] tel:[phone] [facility] No Information 0 1-200 8 Mehbod Amir. [facility], [address], [place], [place], [address] , [place]. tel:[phone] Referring Provider: Jalil Mart, [facility] [address] [place] [address], [place], [address]. tel:[phone] Office/outpa tient visit,[facility], low Z [facility], [address] [place], [place] [address]ite [address], [place], [address], [place] tel:[phone] [email or web address] No Information 3-200 8 Mehbod Amir. [facility], [address] [place] [address] [address], [place], [place], [address] , [place]. [phone] Referring Provider: Jalil Mart, [facility] [address] [place] [address], [address]. tel:[phone] Z [facility], [address] [place], [place] [address]ite [facility], [place], [address], [place] tel:[phone] [email or web address] No Information 0 6-200 8 Mehbod Amir. [facility], [address] [place] [address] [address], [place], [place], [address] , [place]. [phone] Referring Provider: Jalil Mart, [facility] [address] [place] [address], [place], [address]. tel:[phone] Z [facility], [address] [place], [place] [address]ite [facility], [place], [address], [place] tel:[phone] [email or web address] No Information Sep-1 5-200 8 Mehbod Amir. [facility], [address] [place] [address] [address], [place], [place], [address] , [place]. tel:[phone] Referring Provider: Jalil Mart, [facility] [address] [facility], [place], [address]. tel:[phone] Z [facility], [address] [place], [place] [address]ite [address], [place], [address], [place] tel:[phone] [facility] No Information Sep-1 2-200 8 Mehbod Amir. [facility], [address] [place] [address] [address], [place], [place], [address] , [place]. tel:[phone] Referring Provider: Jalil Mart, [facility] [address] [place] [address], [place], [address]. tel:[phone] Office/outpa tient visit,est, low Z [facility], [address] [place], [place] [address]ite [address], [place], [address], [place] tel:[phone] [facility] No Information Sukh-2 3-200 8 Mehbod Amir. [facility], [address] [place] [address] [address], [place], [place], [address] , [place]. tel:[phone] Referring Provider: Jalil Mart, [facility] [address] [facility], [place], [address]. tel:[phone] Office/outpa tient visit,est, low Z [facility], [address], [place], [address], [place] tel:[phone] [facility] No Information Apr-1 0-200 8 Mehbod Amir. [facility], [address] [place] [address] [address], [place], [place], [address] , [place]. [phone] Referring Provider: Jalil Mart, [facility] [address] [facility], [place], [address]. tel:[phone] Office/outpa tient visit,est, low Z [facility], [address] [place] [address] 600, [place], [address], [place] tel:[phone] [facility] [place] No Information 200 8 Mehbod Amir. [facility], [address], [place], [place], [address] , [place]. tel: [phone] Referring Provider: Jalil Mart, [facility] [address] [facility], [place], [address]. tel:[phone] Office/outpa tient visit,est, low Z [facility], [address], [place], [address], [place] tel:[phone] [facility] [place] No Information 200 7 Mehbod Amir. [facility], [address], [place], [place], [address] , [place]. tel: [phone] Referring Provider: Jalil Mart, [facility] [address] [place] [address], [address]. [phone] Office/outpa tient visit,est, low Z [facility], [address], [place], [address], [place] tel:[phone] [facility] No Information 200 7 Mehbod Amir. [facility], [address] [place] [address] [address], [place], [place], [address] , [place]. tel: [phone] Referring Provider: Jalil Mart, [facility] [address] [place], [address]. [phone] Office/outpa tient visit,est, low Z [facility], [address], [place], [address], [place] tel:[phone] [facility] [place] No Information 8-200 7 Mehbod Amir. [facility], [address] [place] [address] [address], [place], [place], [address] , [place]. tel:[phone] Referring Provider: Jalil Mart, [facility] [address] [facility], [place], [address]. tel:[phone] Office/outpa tient visit,est, low Z [facility], [address] [place] [address], [address], [place] tel:[phone] [facility] [place] No Information 200 6 Mehbod Amir. [facility], [address] [place] [address] [address], [place], [address] , [place]. tel:[phone] Referring Provider: Jalil Mart, [facility] [address] [facility], [place], [address]. tel:[phone] [facility], [address], [facility], [place] tel:[phone] [facility] [place] No Information 6 Mehbod Amir. [facility], [address] [place] [address] [address], [place], [address] , [place]. tel:[phone] Referring Provider: Jalil Mart, [facility] [address] [facility], [place], [address]. tel:[phone] [facility], [address] [place] [address], [address], [place] tel:[phone] [facility] No Information 6 Mehbod Amir. [facility], [address] [place] [address] [address], [place], [address] , [place]. tel:[phone] Referring Provider: Jalil Mart, [facility] [address] [place], [address]. tel:[phone] Family History Family Member Type Diagnosis Age At Onset No Information Payers Payer name Insurance type Covered constitution party ID Authoryash barroso(s) [employer] [facility] 2021 CI [id number] Social History Type Description Quantity Date Captured [...] Information Instructions Date Instruction Additional Infor mation Instructed to return to General Practitioner timeframe: 1 Month. Related to Unspecified Essential Hypertension Weight Management Education Rela vanesa to Overweight Weight management: I nstructed to return to General Practitioner timeframe: 1 Month. Related to Overweight Blood Pressure Management Relate d to Unspecified Essential Hypertension Weight management: I nstructed to return to General Practitioner timeframe: 1 Month. Related to Overweight Blood Pressure Management Relate d to Unspecified Essential Hypertension Instructed to return to General Practitioner timeframe: 1 Month. Related to Unspecified Essential Hypertension Weight Management Education Rela vanesa to Overweight Assessments Type Assessment Date assessment Pain in thoracic spine 22 Patient Care Teams Name Effective Dates (start - stop) Status Members No Information
[2024-12-22] MEDS: 0.9 % SODIUM CHLORIDE 500 ML 500 ML IV (16:33)
[2024-12-22 16:34] LABS: Basophils Absolute Auto 0.03 K/uL (0.00-0.30); Basophils Percent Auto 0.5 % (0.0-3.0); Eosinophils Percent Auto 1.5 % (0.0-7.0); Hematocrit 45.2 % (37.0-53.0); Immature Granulocytes Abs Auto 0.02 K/uL (0.00-0.30); Immature Granulocytes Pct Auto 0.3 %; Lymphocytes Percent Auto 6.9 % (20-44); Mean Corpuscular HGB Conc 33 gm/dL (32-36); Mean Corpuscular Hemoglobin 30 pg (26-34); Mean Corpuscular Volume 91 fL (80-100); Monocytes Percent Auto 7.7 % (0.0-11.0); Neutrophils Percent Auto 83.1 % (42.0-72.0); Platelet Count* 160 K/uL (140-440); RDW Coefficient of Variation % 13.2 % (11.5-15.5); Red Blood Count 4.97 m/uL (4.30-5.90); White Blood Count* 6.66 K/uL (4.50-11.00)
[2024-12-22 16:39] LABS: Slide Review Reflex No
[2024-12-22 16:50] LABS: Albumin* 4.2 g/dL (3.3-5.0); Chloride* 112 mmol/L (96-114); Potassium* 4.5 mmol/L (3.6-5.1); Sodium* 139 mmol/L (135-149)
[2024-12-22 16:53] LABS: Alanine Aminotransferase* 28 U/L (4-50); Alkaline Phosphatase* 107 U/L (40-150); Anion Gap 6 mEq/L (7-15); Aspartate Amino Transferase* 30 U/L (12-35); Bilirubin Total* 0.6 mg/dL (0.1-1.5); Blood Urea Nitrogen* 20 mg/dL (7-30); Carbon Dioxide* 21 mmol/L (20-32); Creatinine* 0.9 mg/dL (0.5-1.5); Estimated Glomerular Filt Rate 85 ml/min
[2024-12-22 16:54] LABS: Calcium* 8.7 mg/dL (8.4-10.6); Glucose* 95 mg/dL (60-115); Total Protein* 7.2 g/dL (6.0-8.3)
[2024-12-22 16:56] LABS: C Reactive Protein* 1.9 mg/dL (0.5-1.0)
[2024-12-22 17:12] LABS: PCR FLU A Negative PCR FLU A (Negative); PCR FLU B Negative PCR FLU B (Negative); PCR RSV Negative PCR RSV (Negative); SARS PCR* Negative SARS-CoV-2 (Negative)
[2024-12-22 17:55] LABS: Appearance Urine Clear (Clear); Bilirubin Urine Negative (Negative); Blood Urine Negative (Negative); Color Urine Yellow (Yellow); Glucose Urine Negative (Negative); Ketones Urine Negative (Negative); Leukocyte Esterase Urine Negative (Negative); Nitrite Urine Negative (Negative); Protein Urine 2+ (Negative); Specific Gravity Urine 1.025 (1.000-1.030); Urobilinogen Urine 0.2 (0.2-1.0)
[2024-12-22 18:07] LABS: RBC Urine 0-2 (0-2); WBC Urine 0-2 (0-5)
[2024-12-22 18:53] LABS: Creatine Kinase* 59 U/L (54-186)
[2024-12-22 18:54] LABS: Ethanol* < 0.01 % (0.01-0.03)
--- NOTE | 2024-12-22 19:46 | PM.IMHP1 ---
Assessment and Plan Assessment and plan (1) Fever: Problem comment: No obvious symptoms or signs of infection on initial evaluation. Observe for ongoing fever/signs or symptoms of infection Status: Acute (2) Mobility impaired: Problem comment: Chronic mobility impairment due to sequela of spinal problems and spinal surgery. Has chronic right footdrop but also weak plantar flexion on the right. Unable to stand without assistive device for more than a minute. Uses a walker at home. Discussed concerns about progressive disability. Status: Acute (3) Falls frequently: Status: Acute (4) Weakness: Problem comment: Patient reporting generalized weakness today. Possibly related to infection and fever. Status: Acute (5) Right leg weakness: Problem comment: Chronic weakness in right foot and ankle since spine surgery. Minimal ability to plantar flex or dorsiflex foot or great toe. Mild weakness on the left. Status: Acute Plan Patient is admitted to the hospital for evaluation and management of fever and weakness with inability to walk. Total Time Spent Total Time Spent: Total time spent today is 80 minutes in coordination of care, review of outside records, evaluation and discussion of plan of care for fever and acute on chronic weakness. Hospitalist- H&P: HPI History of Present Illness Date Seen: 12/22/24 Chief complaint: fall weakness Narrative: Shane Rajput is a 84 year old male admitted through the emergency department after a fall at home. This is his 2nd emergency department visit in the past 2 days for falling. He denies loss of consciousness. He recalls falling down and landing on the kitchen counter yesterday and on the couch today. After falling on the couch she was to get weak to get up and walk. Because of that he came to the emergency department. He reports the falls are due to poor balance and weakness which are chronic for him. He has had multiple back surgeries and has had longstanding right foot and ankle weakness as a sequelae of the surgery 15-20 years ago. He does feel like his weakness is much worse today. On admission to the emergency department today he was noted to have a fever with a temperature 100.7? F. he was not aware of having fever or chills. He reports no recent illness. He reports no known exposure. He does go out to exercise at a gym, [address], and to breakfast with friends most days but not aware of any exposure. He does not have any symptoms of illness. Denies new symptoms of cold, cough, sore throat, shortness of breath, chest pain, abdominal pain, nausea, vomiting, diarrhea, dysuria, hematuria. He has been eating and drinking normally. He does have occasional episodes of chest congestion which occur intermittently and chronically for which he takes NyQuil. Not currently bothering him. He also reports that 6 years ago he had a left-sided abdominal pain. Evaluated the clinic and was seen to be a acute epiploic appendagitis adjacent to the descending colon. He reports occasionally having left-sided abdominal pain since that episode. He reports a tendency towards constipation for which he takes senna. He reports occasional episodes of feeling a need to void but then being unable to void. When he does void he does have a weak urine stream. No bowel or bladder incontinence. Review of Systems Narrative: Negative except as noted above [facility] Medical History (Updated 12/22/24 @ 20:11 by Jose Martin Painter MD) Right leg weakness ?R29.898 - Other symptoms and signs involving the musculoskeletal system (ICD-10) Mobility impaired ?Z74.09 - Other reduced mobility (ICD-10) Left ventricular hypertrophy ?I51.7 - Cardiomegaly (ICD-10) Alcohol abuse ?F10.10 - Alcohol abuse, uncomplicated (ICD-10) Muscle spasms of both lower extremities ?M62.838 - Other muscle spasm (ICD-10) Insomnia ?G47.00 - Insomnia, unspecified (ICD-10) Foot drop, right ?M21.371 - Foot drop, right foot (ICD-10) Depression ?F32.A - Depression, unspecified (ICD-10) Hypertension ?I10 - Essential (primary) hypertension (ICD-10) Lumbar stenosis ?M48.061 - Spinal stenosis, lumbar region without neurogenic claudication (ICD-10) Surgical History History of arthroscopy of left knee (11/06/91) ?Z98.890 - Other specified postprocedural states (ICD-10) 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) ?Z96.641 - Presence of right artificial hip joint (ICD-10) History of YAG laser capsulotomy of lens of right eye ?Z98.41 - Cataract extraction status, right eye (ICD-10) History of carpal tunnel surgery of right wrist (01/19/22) ?Z98.890 - Other specified postprocedural states (ICD-10) History of total knee arthroplasty (04/21/05) ?Z96.659 - Presence of unspecified artificial knee joint (ICD-10) Hx of cataract surgery ?Z98.49 - Cataract extraction status, unspecified eye (ICD-10) H/O spinal fusion ?Z98.1 - Arthrodesis status (ICD-10) Family History (Updated 12/22/24 @ 19:57 by Jose Martin Painter MD) Mother Diabetes Heart disease Father High blood pressure Social History (Updated 12/22/24 @ 20:01 by Jose Martin Painter MD) Narrative: Lives alone in [place]. No living children, son 2-3 years ago. Niece Aleyda Rajput in [place] or friends Woo and Joanne Webb would be medical decision makers if needed. DNR. 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 Quit smoking in the 1982. Had problems with alcohol use disorder and quit drinking in 1977. Still attends AA Uses a walker at home. Lives in a 1st floor appointment with no stairs. Has quit driving. Has groceries delivered. Has friends who give him rides when needed. Has hired someone to come to his apartment to clean. Smoking Status: Former smoker What tobacco products do you use: cigarettes Smoking quit date/years: >15 years ago Do you use any of these nicotine containing products: None Second hand tobacco smoke exposure: No How often do you have a drink containing alcohol: never How often do you have six or more drinks on one occasion: Never AUDIT-C Alcohol total score: 0 Non-prescribed substance use: denies use service: No Meds Home Medications and Allergies Home Medications ?Medication ?Instructions ?Recorded ?Confirmed ?Type gabapentin 300 mg capsule 600 mg PO HS 04/22/22 12/21/24 History lorazepam 1 mg tablet 0.5 - 1 mg PO QPM PRN 12/11/22 12/21/24 History amlodipine 10 mg tablet 10 mg PO DAILY 02/15/24 12/21/24 History metoprolol succinate 25 mg 25 mg PO DAILY 02/15/24 12/21/24 History tablet,extended release 24 hr mirtazapine 7.5 mg tablet 7.5 mg PO QPM 02/15/24 12/21/24 History Allergies Allergy/AdvReac Type Severity Reaction Status Date / Time No Known Drug Allergies Allergy Verified 12/21/24 10:09 Exam Narrative: Exam Narrative: He is alert and appears in no distress. He is oriented to his circumstances and gives his own history and good detail. Head is notable for abrasion over his forehead and ecchymosis around his left eye. Eyes otherwise appear normal with conjugate gaze and no other significant trauma. Oropharynx with small airway. Neck is supple without mass or adenopathy. No tenderness. Diminished range of motion in his neck without significant symptoms. Respirations are clear to auscultation. Cardiovascular: S1, S2, regular rate and rhythm. No murmur gallop or rub. Abdomen: Bowel sounds active. Abdomen is soft without tenderness or mass. External genitalia normal. Lower extremities notable for right lower extremity with marked atrophy of the lower leg minimal flexion or extension at the ankle. Left lower extremity has 4/5 strength with flexion and extension at the ankle. Hip flexion bilaterally 5/5. Knee flexion and extension bilaterally 5/5. Intact pedal pulses. No edema. Subjectively diminished sensation, worse in the right foot than the left foot but still feels proprioception and soft touch bilaterally Const: Vital Signs, click to edit/add: Vital Signs - 24 hr 12/22/24 15:18 12/22/24 17:16 Temperature 100.7 F H 99.0 F Pulse Rate [Pulse Oximeter] 90 89 Respiratory Rate 20 18 Blood Pressure [Ri ght Upper Arm] 112/81 146/72 H Pulse Oximetry 95 93 Oxygen Delivery Me thod Room Air Room Air Documenting provider has reviewed patient's vital signs: yes Hospitalist - H&P: Result Labs Labs: Short CBC 12/22/24 Range/Units 16:19 WBC 6.66 (4.50-11.00) K/uL Hgb 15.0 (13.5-17.5) gm/dL Hct 45.2 (37.0-53.0) % Plt Count 160 (140-440) K/uL BMP 12/22/24 16:19 Sodium 139 Potassium 4.5 Chloride 112 Carbon Dioxide 21 BUN 20 Creatinine 0.9 Glucose 95 Calcium 8.7 Cardiac Enzymes 12/22/24 Range/Units 16:19 Total Creatine Kinase 59 (54-186) U/L Liver Function 12/22/24 Range/Units 16:19 Total Bilirubin 0.6 (0.1-1.5) mg/dL AST 30 (12-35) U/L ALT 28 (4-50) U/L Alkaline Phosphatase 107 (40-150) U/L Albumin 4.2 (3.3-5.0) g/dL Urine 12/22/24 Range/Units 17:50 Urine Color Yellow (Yellow) Urine Appearance Clear (Clear) Urine pH 6.0 (5.0-8.5) Ur Specific [place] 1.025 (1.000-1.030) Urine Protein 2+ A (Negative) Urine Glucose (UA) Negative (Negative) Imaging Chest x-ray: Radiologist's impression: INDICATION: Fever fall and weakness. TECHNIQUE: Chest 1 views. COMPARISON: 12/11/2022. FINDINGS: Cardiovasculature and mediastinum: Heart size is normal. Unremarkable mediastinum. Lungs and pleural spaces: Lungs are clear. No sign of infiltrate or mass. No sign of pleural effusion. No pneumothorax. Bones and soft tissues: No significant findings. IMPRESSION: Negative chest. No sign of pneumonia or other acute abnormality. CT scan - head: Radiologist's impression: INDICATION: Fall, fever, weakness TECHNIQUE: Noncontrast axial CT of the head. Coronal and sagittal reformats. Bone and soft tissue algorithms. COMPARISON: CT head 03/18/2023 FINDINGS: Left frontal scalp edema/hematoma. Calvarium appears grossly intact. No acute intracranial hemorrhage or abnormal extra-axial fluid collection identified. No midline shift or mass effect, hydrocephalus herniation. Preserved souza-white matter differentiation. Mild generalized cerebral volume loss and mild chronic microangiopathy changes. Calcific intracranial atherosclerotic plaquing. Unremarkable midline structures. Clear mastoid air cells. Partially visualized left cervical laminoplasty changes. Facial structures are detailed in separate report. IMPRESSION: 1. Left frontal scalp edema/shallow hematoma. 2. No skull fracture or acute intracranial hemorrhage identified. Facial CT: Radiologist's impression: Indication: Fall, fever, weakness Technique: Helical axial sections were obtained through the facial skeleton, mandible and adjacent structures without intravenous contrast material. Data was reformatted not only in axial but also coronal planes. Comparison: Same-day CT head Findings: Left frontal scalp edema/minimal hematoma. Facial bones appear grossly intact. The bony orbits and their contents appear atraumatic. Incidental bilateral lens implants. No radiopaque foreign body or abnormal soft tissue emphysema. Small mucous retention cysts along the inferior maxillary sinuses. Sinonasal cavities are otherwise clear. Slight sinusoidal nasal septal deviation. The temporomandibular joints appear within normal limits. Included views of the cervical spine demonstrate focal kyphosis at C4-5, with grade 1 anterolisthesis at C3-4 and C4-5, grade 1 retrolisthesis at C6-7, grade 1 anterolisthesis at C7-T1. 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 Impression: 1. Left frontal scalp edema/trace hematoma. 2. No acute facial bone fracture identified. 3. Remote postoperative changes in the cervical spine.
[2024-12-22] MEDS: GABAPENTIN 300 MG CAPSULE 600 MG PO (21:54)
[2024-12-22] MEDS: MELATONIN 3 MG TABLET PO (21:54)
[2024-12-22] MEDS: MIRTAZAPINE 15 MG TABLET 7.5 MG PO (21:55)
[2024-12-22] MEDS: SODIUM CHLORIDE 0.9 % (FLUSH) 10 ML SYRINGE 5 ML IVF (21:55)
[2024-12-23] VITALS (8 sets, daily range): BP systolic 112–150; BP diastolic 60–82; PULSE 67–90; RESP 18–24; TEMP 36.6–36.8; O2SAT 93–96
[2024-12-23] MEDS: LORazepam 1 MG TABLET 0.5 MG PO ×2 (01:50→21:45)
--- NOTE | 2024-12-23 04:32 | PC.NURSE ---
Shift note:Patient was brought to unit at 2014 on a wheelchair. He arrived with 2 bad-aid, 1 to the forehead over right upper eyelid and other across the nasal bridge. Patient was alert and oriented. However, required walker to stand and ambulate with A1 and GB. He was unstable on arrival and required more attention to prevent falls. He confirmed pain level 2/10 and the pain level has remained 2 for the rest of the shift. Patient mentioned that he has a previous history of difficulty sleeping and nasal discharges. He has been taking NyQuil which appears to work for him. Melatonin 3mg was given at 2200 to help with the sleep. However, patient reported not effective and requested for Ativan. Patient had adequate sleep after the Ativan. He appeared to have mild confusion occasionally especially with the use of call light and remote control. Vitally stable.
[2024-12-23 07:29] LABS: Basophils Absolute Auto 0.02 K/uL (0.00-0.30); Basophils Percent Auto 0.4 % (0.0-3.0); Eosinophils Absolute Auto 0.29 K/uL (0.00-0.50); Eosinophils Percent Auto 5.1 % (0.0-7.0); Hematocrit 42.3 % (37.0-53.0); Hemoglobin* 13.9 gm/dL (13.5-17.5); Immature Granulocytes Abs Auto 0.06 K/uL (0.00-0.30); Immature Granulocytes Pct Auto 1.1 %; Lymphocytes Percent Auto 15.2 % (20-44); Mean Corpuscular HGB Conc 33 gm/dL (32-36); Mean Corpuscular Hemoglobin 30 pg (26-34); Mean Corpuscular Volume 92 fL (80-100); Monocytes Percent Auto 12.9 % (0.0-11.0); Neutrophils Absolute Auto 3.71 K/uL (1.7-7.0); Neutrophils Percent Auto 65.3 % (42.0-72.0); Platelet Count* 142 K/uL (140-440); RDW Coefficient of Variation % 13.3 % (11.5-15.5); Red Blood Count 4.62 m/uL (4.30-5.90); White Blood Count* 5.67 K/uL (4.50-11.00)
[2024-12-23 07:37] LABS: Slide Review Reflex No
[2024-12-23 07:43] LABS: Chloride* 111 mmol/L (96-114); Potassium* 4.3 mmol/L (3.6-5.1); Sodium* 138 mmol/L (135-149)
[2024-12-23 07:47] LABS: Anion Gap 4 mEq/L (7-15); Blood Urea Nitrogen* 18 mg/dL (7-30); Calcium* 8.5 mg/dL (8.4-10.6); Carbon Dioxide* 23 mmol/L (20-32); Creatinine* 0.9 mg/dL (0.5-1.5); Est. Creatinine Clearance* 54.15; Estimated Glomerular Filt Rate 85 ml/min; Glucose* 108 mg/dL (60-115)
[2024-12-23 07:50] LABS: C Reactive Protein* 4.1 mg/dL (0.5-1.0)
[2024-12-23] MEDS: AMLODIPINE 10 MG TABLET PO (09:32)
[2024-12-23] MEDS: SENNOSIDES/DOCUSATE TABLET 1 TAB PO ×2 (09:33→21:46)
[2024-12-23] MEDS: lisinopriL 20 MG TABLET PO (09:33)
[2024-12-23] MEDS: METOPROLOL SUCCINATE (XL) 25 MG TAB PO (09:33)
[2024-12-23] MEDS: SODIUM CHLORIDE 0.9 % (FLUSH) 10 ML SYRINGE 5 ML IVF ×2 (09:33→21:46)
--- NOTE | 2024-12-23 11:32 | PM.IMPN1 ---
Assessment and Plan Assessment and plan (1) Fever: Problem comment: No obvious symptoms or signs of infection on initial evaluation. Observe for ongoing fever/signs or symptoms of infection Remains afebrile. No leukocytosis. UA unremarkable. BC pending Status: Acute (2) Mobility impaired: Problem comment: Chronic mobility impairment due to sequela of spinal problems and spinal surgery. Has chronic right footdrop but also weak plantar flexion on the right. Unable to stand without assistive device for more than a minute. Uses a walker at home. Discussed concerns about progressive disability. PT/OT consults cloud services architect for discharge planning/placement needs Status: Acute (3) Falls frequently: Problem comment: PT/OT consults cloud services architect for discharge planning/placement needs Status: Acute (4) Abrasion of face: Problem comment: S/p fall. Wound cares daily Status: Acute (5) Weakness: Problem comment: Patient reporting generalized weakness today. Possibly related to infection and fever - thus far no evidence PT/OT Status: Acute (6) Right leg weakness: Problem comment: Chronic weakness in right foot and ankle since spine surgery. Minimal ability to plantar flex or dorsiflex foot or great toe. Mild weakness on the left. Uses walker chronically Status: Acute Plan Continue with therapies, develop safe discharge plan while monitoring for any evidence of infectious etiology Total Time Spent Total Time Spent: Today I spent 60 minutes seeing the patient, reviewing Expanse and EPIC notes/diagnostics, discussing the care plan with our care time that includes social work, PT/OT, pharmacy, RT, [facility] and documenting my impressions and plan in the medical record. Subjective Date Seen: 12/23/24 Interval history: Patient reports feeling better today. Has a mild frontal headache s/p fall with facial abrasion. Denies neck pain. No dizziness. Remains afebrile. Denies abdominal pain. No nausea or vomiting. Tolerating orals. Last BM was 2 days ago, will start senna b.i.d.. Lives alone in [place] apartments. Has no family nearby but has several friends as a support system. Exam Narrative: Exam Narrative: PHYSICAL EXAM General: Pleasant, conversant, NAD HEENT: Facial abrasion forehead and nasal bridge. No bleeding or drainage. No surrounding erythema or bruising. Sclera white, EOMI, oral mucosa moist Cardiovascular: RRR, S1S2. No pitting edema Pulmonary: CTA bilaterally without rhonchi, rales, expiratory wheezes. No dyspnea on room air Abdominal: Soft, nondistended, NTTP Neurological: Alert, answering questions appropriately, cranial nerves intact Extremities: No gross joint deformity or swelling. AROMI. Noted foot weakness when observed walking with walker. Neurovascularly intact Skin: Warm, dry. Const: Vital Signs, click to edit/add: Vital Signs - 24 hr 12/22/24 15:18 12/22/24 16:30 12/22/24 16:31 Temperature 100.7 F H Pulse Rate 81 85 Pulse Rate [Pulse Oximeter] 90 Pulse Rate [Right Pulse Oximeter] Respiratory Rate 20 19 14 Blood Pressure 133/78 Blood Pressure [Le ft Arm] Blood Pressure [Ri ght Arm] Blood Pressure [Ri ght Upper Arm] 112/81 Pulse Oximetry 95 94 96 Oxygen Delivery Me thod Room Air 12/22/24 16:45 12/22/24 17:00 12/22/24 17:02 Temperature Pulse Rate 82 89 84 Pulse Rate [Pulse Oximeter] Pulse Rate [Right Pulse Oximeter] Respiratory Rate 18 21 19 Blood Pressure 146/72 H Blood Pressure [Le ft Arm] Blood Pressure [Ri ght Arm] Blood Pressure [Ri ght Upper Arm] Pulse Oximetry 93 93 97 Oxygen Delivery Me thod 12/22/24 17:15 12/22/24 17:16 12/22/24 17:30 Temperature 99.0 F Pulse Rate 85 89 Pulse Rate [Pulse Oximeter] 89 Pulse Rate [Right Pulse Oximeter] Respiratory Rate 18 18 14 Blood Pressure Blood Pressure [Le ft Arm] Blood Pressure [Ri ght Arm] Blood Pressure [Ri ght Upper Arm] 146/72 H Pulse Oximetry 91 93 98 Oxygen Delivery Me thod Room Air 12/22/24 17:45 12/22/24 18:00 12/22/24 18:04 Temperature Pulse Rate 94 85 86 Pulse Rate [Pulse Oximeter] Pulse Rate [Right Pulse Oximeter] Respiratory Rate 18 20 20 Blood Pressure Blood Pressure [Le ft Arm] Blood Pressure [Ri ght Arm] Blood Pressure [Ri ght Upper Arm] Pulse Oximetry 98 97 97 Oxygen Delivery Me thod 12/22/24 18:15 12/22/24 18:30 12/22/24 18:34 Temperature Pulse Rate 78 89 92 Pulse Rate [Pulse Oximeter] Pulse Rate [Right Pulse Oximeter] Respiratory Rate 18 6 L 14 Blood Pressure Blood Pressure [Le ft Arm] Blood Pressure [Ri ght Arm] Blood Pressure [Ri ght Upper Arm] Pulse Oximetry 96 98 98 Oxygen Delivery Me thod 12/22/24 18:45 12/22/24 19:00 12/22/24 19:04 Temperature Pulse Rate 95 91 91 Pulse Rate [Pulse Oximeter] Pulse Rate [Right Pulse Oximeter] Respiratory Rate 18 20 10 L Blood Pressure Blood Pressure [Le ft Arm] Blood Pressure [Ri ght Arm] Blood Pressure [Ri ght Upper Arm] Pulse Oximetry 97 97 96 Oxygen Delivery Me thod 12/22/24 19:15 12/22/24 19:30 12/22/24 19:45 Temperature Pulse Rate 89 Pulse Rate [Pulse Oximeter] Pulse Rate [Right Pulse Oximeter] Respiratory Rate 12 10 L 16 Blood Pressure Blood Pressure [Le ft Arm] Blood Pressure [Ri ght Arm] Blood Pressure [Ri ght Upper Arm] Pulse Oximetry 95 Oxygen Delivery La thod 12/22/24 20:22 12/22/24 20:22 12/22/24 22:28 Temperature 98.3 F Pulse Rate Pulse Rate [Pulse Oximeter] Pulse Rate [Right Pulse Oximeter] 85 80 Respiratory Rate 16 16 16 Blood Pressure Blood Pressure [Le ft Arm] Blood Pressure [Ri ght Arm] 138/82 Blood Pressure [Ri ght Upper Arm] Pulse Oximetry 95 95 [facility] 12/22/24 22:28 12/22/24 23:30 12/23/24 01:53 Temperature 98.3 F Pulse Rate Pulse Rate [Pulse Oximeter] Pulse Rate [Right Pulse Oximeter] 90 Respiratory Rate 16 18 18 Blood Pressure Blood Pressure [Le ft Arm] Blood Pressure [Ri ght Arm] 117/82 Blood Pressure [Ri ght Upper Arm] Pulse Oximetry 95 Oxygen Delivery La thod Room Air 12/23/24 05:25 12/23/24 09:00 Temperature 97.9 F Pulse Rate Pulse Rate [Pulse Oximeter] Pulse Rate [Right Pulse Oximeter] 90 Respiratory Rate 18 18 Blood Pressure Blood Pressure [Le ft Arm] 112/75 Blood Pressure [Ri ght Arm] Blood Pressure [Ri ght Upper Arm] Pulse Oximetry 95 [facility] Labs Labs: Laboratory Results - last 24 hr 12/22/24 12/22/24 12/22/24 15:41 16:08 16:19 WBC 6.66 RBC 4.97 Hgb 15.0 Hct 45.2 MCV 91 MCH 30 MCHC 33 RDW Coeff of Nikhil 13.2 Plt Count 160 Neut % (Auto) 83.1 H Lymph % (Auto) 6.9 L [place] % (Auto) 7.7 Eos % (Auto) 1.5 Baso % (Auto) 0.5 Neut # (Auto) 5.50 Lymph # (Auto) 0.50 L [place] # (Auto) 0.50 Eos # (Auto) 0.10 Baso # (Auto) 0.03 Abs Immat Gran (auto) 0.02 Imm/Tot Granulo (auto) 0.3 Sodium 139 Potassium 4.5 Chloride 112 Carbon Dioxide 21 Anion Gap 6 L BUN 20 Creatinine 0.9 Estimated Creat Clear Estimated GFR 85 Glucose 95 Calcium 8.7 Total Bilirubin 0.6 AST 30 ALT 28 Alkaline Phosphatase 107 Total Creatine Kinase 59 C-Reactive Protein 1.9 H Total Protein 7.2 Albumin 4.2 Urine Color Urine Appearance Urine pH Ur Specific [place] Urine Protein Urine Glucose (UA) Urine Ketones Urine Blood Urine Nitrite Urine Bilirubin Urine Urobilinogen Ur Leukocyte Esterase Urine RBC Urine WBC Ur Squamous Epith Cells Urine Bacteria Ethyl Alcohol < 0.01 SARS-CoV-2 (PCR) Negative SARS-CoV-2 Influenza Type A (PCR) Negative PCR FLU A Influenza Type B (PCR) Negative PCR FLU B RSV (PCR) Negative PCR RSV Lab Acknowledgement POC Troponin I 0.00 L 12/22/24 12/22/24 12/23/24 17:50 18:36 07:23 WBC 5.67 RBC 4.62 Hgb 13.9 Hct 42.3 MCV 92 MCH 30 MCHC 33 RDW Coeff of Nikhil 13.3 Plt Count 142 Neut % (Auto) 65.3 Lymph % (Auto) 15.2 L [place] % (Auto) 12.9 H Eos % (Auto) 5.1 Baso % (Auto) 0.4 Neut # (Auto) 3.71 Lymph # (Auto) 0.90 [place] # (Auto) 0.70 Eos # (Auto) 0.29 Baso # (Auto) 0.02 Abs Immat Gran (auto) 0.06 Imm/Tot Granulo (auto) 1.1 Sodium 138 Potassium 4.3 Chloride 111 Carbon Dioxide 23 Anion Gap 4 L BUN 18 Creatinine 0.9 Estimated Creat Clear 54.15 Estimated GFR 85 Glucose 108 Calcium 8.5 Total Bilirubin AST ALT Alkaline Phosphatase Total Creatine Kinase C-Reactive Protein 4.1 H Total Protein Albumin Urine Color Yellow Urine Appearance Clear Urine pH 6.0 Ur Specific [place] 1.025 Urine Protein 2+ A Urine Glucose (UA) Negative Urine Ketones Negative Urine Blood Negative Urine Nitrite Negative Urine Bilirubin Negative Urine Urobilinogen 0.2 Ur Leukocyte Esterase Negative Urine RBC 0-2 Urine WBC 0-2 Ur Squamous Epith Cells None Urine Bacteria None Ethyl Alcohol SARS-CoV-2 (PCR) Influenza Type A (PCR) Influenza Type B (PCR) RSV (PCR) Lab Acknowledgement Test Added POC Troponin I
--- NOTE | 2024-12-23 19:39 | PC.NURSE ---
Nursing Care Hours: [id number] Pt this shift calm and cooperative, alert and oriented. No c/o pain. VSS. Abrasion to forehead covered with mepilex. Walked in real SBA x2 with walker and gait belt.
[2024-12-23] MEDS: MIRTAZAPINE 15 MG TABLET 7.5 MG PO (21:45)
[2024-12-23] MEDS: GABAPENTIN 300 MG CAPSULE 600 MG PO (21:46)
[2024-12-24 03:02] VITALS: RESP 18
[2024-12-24 04:00] VITALS: RESP 18
--- NOTE | 2024-12-24 06:22 | PC.NURSE ---
End of shift report [id number]: Alert and oriented x 4. Pleasant and cooperative with cares. Denies any pain, shortness of breath or chest pain this shift. Dressing to mid forehead clean, dry and intact. Bruising around left eye, denies any visual disturbance. Transfers and ambulates with SBA with walker, patient has significant foot drop, utilizes AFO at home but does not have orthotic present in the hospital. Denies any nausea or vomiting.
[2024-12-24 08:00] VITALS: BP 172/84; PULSE 90; RESP 18; TEMP 36.7; O2SAT 96
[2024-12-24] MEDS: METOPROLOL SUCCINATE (XL) 25 MG TAB PO (09:13)
[2024-12-24] MEDS: lisinopriL 20 MG TABLET PO (09:13)
[2024-12-24] MEDS: SENNOSIDES/DOCUSATE TABLET 1 TAB PO (09:13)
[2024-12-24] MEDS: AMLODIPINE 10 MG TABLET PO (09:13)
[2024-12-24] MEDS: SODIUM CHLORIDE 0.9 % (FLUSH) 10 ML SYRINGE 5 ML IVF (09:14)
--- NOTE | 2024-12-24 09:33 | PM.DS1 ---
DS: Providers Provider Date Seen: 12/24/24 Date of admission: 12/22/24 20:19 Primary care physician: Robbie Maldonado MD Admitting Clinician: Jose Martin Painter MD Consults: 12/22/24 19:44 Consult to Occupational Therapy [CONS] Routine Comment: Reason(s) for OT Consult:: Evaluate and Treat Any Restrictions?:: No Restrictions Consult to Physical Therapy [CONS] Routine Comment: Reason(s) for PT Consult:: Evaluate and Treat Any Restrictions?:: No Restrictions 12/23/24 14:01 Consult to Nicking Machine Operator [CONS] Routine Comment: Reason for Consult:: Social Service Consult Attending Physician on discharge: ANDI Garibay, GIORGI [facility] Critical [facility] Hospitalist Date of Discharge: 12/24/24 DS: Diagnosis Discharge Diagnosis (1) Fever: Status: Resolved Problem details: No obvious symptoms or signs of infection on initial evaluation. Observe for ongoing fever/signs or symptoms of infection Remains afebrile. No leukocytosis. UA unremarkable. BC NGTD RESOLVED. No further fevers. 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 Has chronic right footdrop but also weak plantar flexion on the right. Unable to stand without assistive device for more than a minute. Uses a walker at home. Discussed concerns about progressive disability. PT/OT consults visitor services representative for discharge planning/placement needs Worked with PT and OT during hospital course. Will resume outpatient physical therapy on discharge. Will be set up for outpatient OT for lymphedema clinic. Will additionally have a home safety eval. (3) Falls frequently: Status: Acute Problem details: PT/OT consults visitor services representative for discharge planning/placement needs Outpatient plan as above #2 (4) Weakness: Status: Acute Problem details: Patient reporting generalized weakness today. Possibly related to infection and fever - no evidence of infectious etiology PT/OT Outpatient plan as above (5) Abrasion of face: Status: Acute Problem details: S/p fall. Wound cares daily Continue daily cares with gentle cleaning, okay to open to air, cover while sleeping. (6) Scalp hematoma: Status: Acute Problem details: s/p fall. CT shows Left frontal scalp edema/trace hematoma (7) Right leg weakness: Status: Acute Problem details: Chronic weakness in right foot and ankle since spine surgery. Minimal ability to plantar flex or dorsiflex foot or great toe. Mild weakness on the left. Uses walker chronically DS: Summary Hospital Course Hospital Course: Course of care and details as noted above. Remainder of chronic medical comorbidities were monitored and managed with home medications. Status at Discharge Functional status at discharge: uses cane/walker Overall status at discharge: patient is back to baseline Time Spent with Patient Time attestation: Total time spent providing and/or coordinating discharge services: Time spent: Greater than 30 minutes Exam Narrative: Exam Narrative: PHYSICAL EXAM General: Pleasant, conversant, NAD HEENT: Abrasion forehead and nasal bridge healing appropriately. Bruising periorbital, nasal region deepening. Minimal swelling. EOM intact, sclera white. Cardiovascular: RRR Pulmonary: No dyspnea Neurological: Alert, answering questions appropriately Skin: Warm, dry. Const: Vital Signs, click to edit/add: Vital Signs - 24 hr 12/23/24 11:00 12/23/24 15:00 12/23/24 15:00 Temperature 97.8 F 98.0 F Pulse Rate [Right Pulse Oximeter] 80 76 76 Respiratory Rate 18 24 24 Blood Pressure [Le ft Arm] 113/60 122/64 Pulse Oximetry 95 96 Oxygen Delivery Me thod Room Air Room Air 12/23/24 19:00 12/23/24 22:25 12/23/24 22:25 Temperature 98.0 F 97.9 F Pulse Rate [Right Pulse Oximeter] 67 87 87 Respiratory Rate 18 20 20 Blood Pressure [Le ft Arm] 150/72 H 131/71 Pulse Oximetry 94 93 Oxygen Delivery Me thod Room Air Room Air 12/23/24 23:20 12/24/24 03:02 12/24/24 04:00 Temperature Pulse Rate [Right Pulse Oximeter] Respiratory Rate 20 18 18 Blood Pressure [Le ft Arm] Pulse Oximetry Oxygen Delivery Me thod 12/24/24 08:00 12/24/24 08:00 Temperature 98.0 F Pulse Rate [Right Pulse Oximeter] 90 90 Respiratory Rate 18 18 Blood Pressure [Le ft Arm] 172/84 H Pulse Oximetry 96 Oxygen Delivery Me thod Room Air DS: Data Data Completed and Pending Labs on day of discharge: Preliminary micro results at discharge 12/22/24 16:19 Blood Culture - Preliminary Blood NO GROWTH AFTER 24 HOURS Imaging Chest x-ray: Attestation: I have reviewed the pertinent imaging results. Radiologist's impression: Cardiovasculature and mediastinum: Heart size is normal. Unremarkable mediastinum. Lungs and pleural spaces: Lungs are clear. No sign of infiltrate or mass. No sign of pleural effusion. No pneumothorax. Bones and soft tissues: No significant findings. IMPRESSION: Negative chest. No sign of pneumonia or other acute abnormality. CT scan - head: Attestation: I have reviewed the pertinent imaging results. Radiologist's impression: Left frontal scalp edema/hematoma. Calvarium appears grossly intact. No acute intracranial hemorrhage or abnormal extra-axial fluid collection identified. No midline shift or mass effect, hydrocephalus herniation. Preserved souza-white matter differentiation. Mild generalized cerebral volume loss and mild chronic microangiopathy changes. Calcific intracranial atherosclerotic plaquing. Unremarkable midline structures. Clear mastoid air cells. Partially visualized left cervical laminoplasty changes. Facial structures are detailed in separate report. IMPRESSION: 1. Left frontal scalp edema/shallow hematoma. 2. No skull fracture or acute intracranial hemorrhage identified. face CT: Attestation: I have reviewed the pertinent imaging results. Radiologist's impression: Left frontal scalp edema/minimal hematoma. Facial bones appear grossly intact. The bony orbits and their contents appear atraumatic. Incidental bilateral lens implants. No radiopaque foreign body or abnormal soft tissue emphysema. Small mucous retention cysts along the inferior maxillary sinuses. Sinonasal cavities are otherwise clear. Slight sinusoidal nasal septal deviation. The temporomandibular joints appear within normal limits. Included views of the cervical spine demonstrate focal kyphosis at C4-5, with grade 1 anterolisthesis at C3-4 and C4-5, grade 1 retrolisthesis at C6-7, grade 1 anterolisthesis at C7-T1. 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 Impression: 1. Left frontal scalp edema/trace hematoma. 2. No acute facial bone fracture identified. 3. Remote postoperative changes in the cervical spine. Discharge Plan Discharge Disposition: Home, Self-Care Date of Admission: 12/22/24 20:19 Attending Provider on Discharge: Ginny Allen Primary Care Provider: Robbie Maldonado Condition: Improved Anticipated Discharge Date/Time: 12/24/24 11:00 Discharge Medications: Continued amlodipine 10 mg tablet 10 mg PO DAILY mirtazapine 7.5 mg tablet 7.5 mg PO HS metoprolol succinate 25 mg tablet extended release 24 hr 25 mg PO DAILY lorazepam 1 mg tablet 0.5 mg PO HS PRN lisinopril 20 mg tablet 20 mg PO DAILY Qty: 30 0RF naproxen sodium [Aleve] 220 mg tablet 220 mg PO BID PRN omega 4-bkk-lud-fish oil [Fish Oil] 1,000 (120-180) mg capsule 1 cap PO DAILY turmeric 400 mg capsule 800 mg PO DAILY sennosides-docusate sodium 8.6-50 mg tablet 2 tab-cap PO BID PRN vitamin B complex [Balanced B-50] Tablet 1 tab PO DAILY gabapentin 300 mg capsule 600 mg PO HS Rx Instructions: 2-3 caps at HS Discontinued Vicks NyQuil Cold/Flu Liquicap 6.25-15-325 mg capsule 1 cap PO BID PRN Discharge Orders: Discharge Order (Routine); Ordered 12/24/24 Ordered By: Ginny Allen Patient Education: Weakness (DC), Fall Prevention (GEN) Additional Instructions: RESUME/CONTINUE WITH YOUR OUTPATIENT PHYSICAL THERAPY A home safety evaluation will be scheduled for you. An appointment with outpatient OT for lymphedema will be scheduled for you. Activity Level: Activity as Tolerated Activity Detail: per PT/OT recommendations Discharge Diet: Regular Follow Up Appointments: Robbie Maldonado MD [Primary Care Provider] - 12/31/24 2:05 pm ([facility] for post hospital follow-up. ) Forms: [facility] Info Instructions
--- NOTE | 2024-12-24 10:56 | PC.SOCIAL ---
Discharge planning: Pt is discharging this morning. No social work needs at this time. Social work will follow-up as needed.
--- NOTE | 2024-12-24 11:58 | PC.NURSE ---
Discharge: Patient pleasant and cooperative, A&O. VSS, afebrile. SpO2 maintained above 90% on RA. IV removed with tip intact. Discharge instructions provided, all questions answered. Discharged to home via wheelchair.
== END 2024-12-24 11:30 | disposition home or self-care (01) ==
LOC: ED 18:42 → MEDSURG 20:19
PROVIDERS: Physician Assistant; Admitting Provider Family Medicine; Emergency Provider Family Medicine; PCP Family Medicine; Visit Provider Family Medicine
DX: R53.1 Weakness (principal); R50.9 Fever, unspecified; Z74.09 Other reduced mobility; R29.6 Repeated falls; S00.03XA Contusion of scalp, initial encounter; S00.81XA Abrasion of other part of head, initial encounter; R29.898 Other symptoms and signs involving the musculoskeletal system; M21.371 Foot drop, right foot; M21.271 Flexion deformity, right ankle and toes; I10 Essential (primary) hypertension; Z87.891 Personal history of nicotine dependence
CPT/HCPCS: 36415; 51798; 70450; 70486; 71045; 80048; 80053; 81001; 82077; 82550; 84484; 85025; 86140; 87040; 87631; 93005; 96360; 97110; 97116; 97161; 97165; 97535; 99284; 99285; A9270; G0378; J7030

== ENCOUNTER 2024-12-25 14:22 | Outpatient (RCR) | payer MEDICARE, SELFPAY | END 2024-12-25 15:06 | disposition home or self-care (01) | PROVIDERS: PCP Family Medicine; Visit Provider Family Medicine | DX: R53.1 Weakness (principal); Z51.89 Encounter for other specified aftercare | CPT/HCPCS: 97165; 97535 ==

== ENCOUNTER 2025-02-21 16:45 | Outpatient (RCR) | payer MEDICARE, SELFPAY | END 2025-06-21 23:59 | disposition home or self-care (01) | PROVIDERS: PCP Family Medicine; Visit Provider Family Medicine | DX: I89.0 Lymphedema, not elsewhere classified (principal); Z51.89 Encounter for other specified aftercare | CPT/HCPCS: 97165; 97530; 97535 ==